=== PATIENT | male | born 1940 | race Caucasian/White ===

== ENCOUNTER 2017-12-06 01:39 | Inpatient (IN) | payer OTHER, SELFPAY ==
[2017-12-06] VITALS (36 sets, daily range): BP systolic 109–155; BP diastolic 58–99; PULSE 44–92; RESP 11–22; TEMP 36.5–36.7; O2SAT 93–98; BMI 30.2; BMI 27.9; BMI 28.0
--- NOTE | 2017-12-06 01:47 | ED.RN ---
CALLED FOR EKG, PULLED OLD EKGS FOR
--- NOTE | 2017-12-06 02:08 | EKG12_ITS ---
Test Reason : CP Blood Pressure : / mmHG Vent. Rate : 062 BPM Atrial Rate : 062 BPM P-R Int : 202 ms QRS Dur : 112 ms QT Int : 418 ms P-R-T Axes : 037 049 034 degrees QTc Int : 424 ms Normal sinus rhythm Normal ECG Confirmed by YANI BENTLEY, GERARD ([id number]), sports editor LIN AVILES ([id number]) on 12/07/2017 1:12:36 PM Referred By: GUY Confirmed By:GERARD LOMELI MD
--- NOTE | 2017-12-06 02:08 | RAD_ITS ---
STUDY: X-RAY CHEST REASON FOR EXAM: Male, 77 years old. Chest pain. TECHNIQUE: Single AP portable view of the chest. COMPARISON: Prior comparison studies are not available for review at this time. FINDINGS: There is hyperinflation of the lungs consistent with chronic obstructive lung disease (COPD). No focal infiltrate is seen. There is no demonstrated pleural abnormality. Normal size heart. Normal mediastinum and sherman. Normal visualized pulmonary arteries. There is atherosclerotic tortuosity of the aortic arch and descending thoracic aorta. The thoracic spine is obscured. Normal visualized ribs, clavicles, and shoulders. There is no demonstrated abnormality of the visualized soft tissue structures of the upper abdomen. RAD/Chest 1 View (Portable) IMPRESSION: No active pulmonary disease. Electronically Signed: Antoine Gandhi MD at 2:25 EDT Tel , Service support ,
[2017-12-06 02:19] LABS: Absolute Lymphocyte Count 1.48 X10^3/ul (0.83-4.51); Absolute Neutrophil Count 3.6 X10^3/uL (2.0-7.7); Basophil# 0.04 X10^3/uL; Basophil% 0.6 % (0-1); Eosinophil# 0.51 X10^3/uL; Eosinophils% 8.2 % (0-5); Hematocrit 41.8 % (40-54); Hemoglobin 14.2 g/dl (13.0-16.5); Lymphocyte # 1.48 X10^3/ul (4.0); Lymphocyte % 23.7 % (19-41); Mean Corpuscular Hgb 31.6 pg (27.0-32.0); Mean Corpuscular Volume 92.9 fL (80-94); Mean Platelet Vol. 9.4 fl (6.2-12.0); Monocyte# 0.64 X10^3/uL; Monocyte% 10.2 % (0-10); Neutrophil # 3.57 X10^3/uL (2.7-7.7); Neutrophil % 57.1 % (47-70); Platelet Count 172 K/mm3 (150-450); RBC Distribution Width CV 12.3 % (11.6-14.6); RBC Distribution Width SD 41.4 fl (35.1-43.9); White Blood Count 6.3 K/mm3 (4.4-11.0)
[2017-12-06 02:21] LABS: POSITIVE COUNT NO; POSITIVE DIFFERENTIAL NO; POSITIVE MORPHOLOGY NO
[2017-12-06 02:38] LABS: Anion Gap 5 (5-15); BUN 17 mg/dL (7-18); BUN/Creat Ratio 17.1 RATIO (10-20); Calcium,Total 8.4 mg/dL (8.5-10.1); Chloride 106 mmol/L (98-107); EST Glomerular Filtration Rate 77 mL/min (>60); Est Glom Filt Rate - Afr Amer 94 mL/min (>60); Estimated Creatinine Clearance 55.83 ml/min; Glucose 89 mg/dL (74-106); Potassium 3.6 mmol/L (3.5-5.1); Sodium Level 142 mmol/L (136-145)
[2017-12-06] MEDS: Aspirin 81 MG TAB.CHEW 324 MG PO (02:39)
--- NOTE | 2017-12-06 03:01 | EKG12_ITS ---
Test Reason : CP REPEAT Blood Pressure : / mmHG Vent. Rate : 065 BPM Atrial Rate : 065 BPM P-R Int : 200 ms QRS Dur : 110 ms QT Int : 430 ms P-R-T Axes : 025 032 017 degrees QTc Int : 447 ms Normal sinus rhythm with sinus arrhythmia Normal ECG Confirmed by YANI BENTLEY, GERARD ([id number]), editor index LIN AVILES ([id number]) on 12/07/2017 1:12:52 PM Referred By: GUY Confirmed By:GERARD LOMELI MD
--- NOTE | 2017-12-06 03:41 | HP.PCM_ITS ---
Problem List (1) Non-ST elevation [place] (NSTEMI) Status: Acute History of Present Illness Date of Admission: 12/06/17 Chief Complaint: Chest pain ?1 week The patient is a 77 year old M with a significant history of CAD status post stents who presents with progressively worsening nonradiating substernal chest pain that started about a week ago. Patient reported that he noticed his chest pain after running or walking. His chest pain was alleviated with slowing down his activity. The patient described the severity of the chest pain as: enough to feel it. He characterizes it as a discomfort. Associated with his symptoms is shortness of breath; and a one-time episode of diaphoresis. Patient was given nitroglycerin by EMS any chest pain improved. At emergency department his troponin was elevated. EKG was unremarkable. He was given aspirin 324 mg. ED doctor reports that he talked to Dr. Leal, cardiology. The plan for the conversation was that the patient's likely will have cardiac cath on same day of admission (morning); and a therapeutic dose of anticoagulation should not be started. Emergency department patient received a loading dose of Plavix; metoprolol titrates and 3 sublingual nitroglycerin. He was also started on nitroglycerin drip. The patient reported that he does not take any home medication except daily dose of baby aspirin. The last time he took his home aspirin was the day before his admission. 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 Past Medical History Allergies No Known Allergies Allergy (Verified 12/06/17 01:41) Home Medications: Ambulatory Orders Medication Instructions Recorded NK [NK] 12/06/17 Surgical History: no surgical history Lives: Spouse/ Significant Other Smoking Status: Never smoker Tobacco Use: Non-smoker Alcohol: None - *Family History Paternal History Items: Heart Disease Maternal History Items: No pertinent history Review of Systems Constitutional: Denies: Chills, Fever, Weight Change Eyes: Denies: Blurred vision, Pain HEENT: Denies: Head Aches, Sinus Congestion, Sinus Drainage Cardiovascular: Reports: Chest Pain Respiratory: Reports: Shortness of Breath Gastrointestinal: Denies: Abdominal Pain, Nausea, Vomiting Genitourinary: Denies: Dysuria Musculoskeletal: Denies: Joint Pain, Joint Tenderness Skin: Denies: Rash, Wounds Neurological: Denies: Numbness, Tingling, Focal weakness Psychiatric: Denies: Anxiety, Depression, Homicidal Ideations, Suicidal Ideations Hematologic/ Lymphatic: Denies: Easy Bruising, Easy Bleeding VTE Information - Inpt Only VTE Present on Admission: No VTE Mechan Device Prophylaxis: None VTE Pharm Prophylaxis ordered?: Yes Patient Problems: Active and Suspected Problems Non-ST elevation [place] (NSTEMI) (Acute) - Physical Exam General: Alert HEENT: Atraumatic, PERRLA, EOMI, Normocephalic Neck: Supple Lungs: Clear to auscultation Cardiovascular: Regular rate, No murmurs Abdomen: Bowel Sounds Present, Soft, Non Tender Extremities: No edema, Capillary Refill Less than 3 Seconds Skin: No rashes, No breakdown Musculoskeletal: No Tenderness to Palpation of Joints or Extremities Neurological: Cranial nerves II-XII grossly intact Psych/Mental Status: Normal Affect, Appropriate Vital Signs Temp Pulse Resp BP Pulse Ox 98.0 F 63 17 119/81 H 96 12/06/17 01:42 12/06/17 03:25 12/06/17 03:23 12/06/17 03:25 12/06/17 03:23 Oxygen Delivery Method Room Air Weight: 84.9 kg Body Mass Index (BMI) 30.2 Laboratory Tests Past 24 Hrs 12/06/17 12/06/17 01:50 01:50 WBC 6.3 RBC 4.50 L Hgb 14.2 Hct 41.8 MCV 92.9 MCH 31.6 MCHC 34.0 RDW 12.3 RDW Differential 41.4 Plt Count 172 MPV 9.4 Immature Gran % (Auto) 0.200 Neut % (Auto) 57.1 Lymph % (Auto) 23.7 Ballard % (Auto) 10.2 H Eos % (Auto) 8.2 H Baso % (Auto) 0.6 Absolute Neuts (auto) 3.6 Absolute Lymphs (auto) 1.48 Total Counted Not Reportable Sodium 142 Potassium 3.6 Chloride 106 Carbon Dioxide 31.0 Anion Gap 5 BUN 17 Creatinine 1.00 Estim Creat Clear Calc 55.83 Est GFR (MDRD) Af Amer 94 Est GFR (MDRD) Non-Af 77 BUN/Creatinine Ratio 17.1 Glucose 89 Calcium 8.4 L Troponin I 0.184 H Assessment/Plan All Active Problems Non-ST elevation [place] (NSTEMI) (Acute) The patient is a 77 year old M with a significant history of CAD status post stents who presents with progressively worsening nonradiating substernal typical chest pain; a strong family history of heart disease; and a positive troponin concerning for non-ST elevation VT Non-ST elevation VT Admit to a monitored bed on PCU CXR independently reviewed confirms no acute pulmonary disease EKG independently reviewed confirms normal sinus rhythm without T-wave abnormalities ASA 81 mg p.o. daily Patient was started on nitroglycerin drip for emergency department; nitroglycerin drip continued Troponin on admission was positive. Continue serial cardiac enzymes Stat EKG as needed for chest pain Patient received beta blockers on admission. Please consider further beta- soniya therapy as necessary. Fasting lipids ordered. High intensity statin started. Received Plavix loading at emergency department Cardiology has been consulted. DVT prophylaxis Subcutaneous heparin
[2017-12-06] MEDS: Metoprolol Tartrate 25 MG Tablet PO (03:46)
[2017-12-06] MEDS: Clopidogrel Bisulfate 300 MG Tablet PO (03:46)
--- NOTE | 2017-12-06 03:49 | ED.VISSUMM ---
- ER Visit Summary Date of Service: 12/06/17 Chief Complaint: Chest pain History of Present Illness: The patient is a 77 M who presents with chest pain. He does have a history of coronary disease and prior DC. He had a previous stent which he believes was 2002. Over the past 2 days he has had intermittent chest pain. This initially began while running and was relieved by stopping. His pain became worse tonight. He has had some associated shortness of breath and diaphoresis. No nausea or vomiting. No fevers. Patient did have sublingual nitroglycerin prior to presentation here to the emergency department which he states did help. Physical Examination: Afebrile vitals stable Moist mucous membranes Heart regular rate and rhythm Lungs are clear Abdomen soft 2+ radial pulses Extremities nontender Alert Test Results: EKG shows sinus rhythm at a rate of 62. Chest x-ray shows no active disease. CBC BMP unremarkable. Troponin is 0.184. Emergency Department Course and Treatment: Patient was given aspirin. He was given further sublingual nitroglycerin here about change in symptoms. Given evidence of cardiac ischemia and ongoing chest pain nitroglycerin infusion was ordered. I spoke to Dr. Leal. He recommended a loading dose of Plavix as well as beta-soniya and to defer on anticoagulation at this time as they will likely perform cardiac catheterization on the patient this morning. I spoke to the hospitalist and the patient will be admitted. Treatment Plan: [] Disposition: Admit Impression: Acute coronary syndrome This note was generated with [employer] dictation software. It may contain incorrect words, spelling, and punctuation that were not noted in review of the chart prior to signing ED Disposition - Plan for ED Patient: Chief Complaint: Chest Pain Referrals: Juan R Rowland DO [Primary Care Provider] -
--- NOTE | 2017-12-06 03:52 | ED.DCSUM_ITS ---
- ER Visit Summary Date of Service: 12/06/17 Chief Complaint: Chest pain History of Present Illness: The patient is a 77 M who presents with chest pain. He does have a history of coronary disease and prior CA. He had a previous stent which he believes was 2002. Over the past 2 days he has had intermittent chest pain. This initially began while running and was relieved by stopping. His pain became worse tonight. He has had some associated shortness of breath and diaphoresis. No nausea or vomiting. No fevers. Patient did have sublingual nitroglycerin prior to presentation here to the emergency department which he states did help. Physical Examination: Afebrile vitals stable Moist mucous membranes Heart regular rate and rhythm Lungs are clear Abdomen soft 2+ radial pulses Extremities nontender Alert Test Results: EKG shows sinus rhythm at a rate of 62. Chest x-ray shows no active disease. CBC BMP unremarkable. Troponin is 0.184. Emergency Department Course and Treatment: Patient was given aspirin. He was given further sublingual nitroglycerin here about change in symptoms. Given evidence of cardiac ischemia and ongoing chest pain nitroglycerin infusion was ordered. I spoke to Dr. Leal. He recommended a loading dose of Plavix as well as beta-soniya and to defer on anticoagulation at this time as they will likely perform cardiac catheterization on the patient this morning. I spoke to the hospitalist and the patient will be admitted. Treatment Plan: [] Disposition: Admit Impression: Acute coronary syndrome This note was generated with [employer] dictation software. It may contain incorrect words, spelling, and punctuation that were not noted in review of the chart prior to signing ED Disposition - Plan for ED Patient: Chief Complaint: Chest Pain Referrals: Juan R Rowland DO [Primary Care Provider] -
--- NOTE | 2017-12-06 04:32 | EKG12_ITS ---
Test Reason : ADMISSION CP Blood Pressure : / mmHG Vent. Rate : 058 BPM Atrial Rate : 058 BPM P-R Int : 204 ms QRS Dur : 108 ms QT Int : 440 ms P-R-T Axes : 041 028 036 degrees QTc Int : 431 ms Sinus bradycardia Otherwise normal ECG When compared with ECG of 06-DEC-2017 03:08, MANUAL COMPARISON REQUIRED, DATA IS UNCONFIRMED Confirmed by YANI BENTLEY, GERARD ([id number]), manager editorial LIN AVILES ([id number]) on 12/07/2017 2:25:35 PM Referred By: BRYNN Confirmed By:GERARD LOMELI MD
[2017-12-06] MEDS: Aspirin E.C. 81 MG Tablet PO (06:02)
[2017-12-06] MEDS: Atorvastatin Calcium 80 MG Tablet PO ×2 (06:02→21:23)
[2017-12-06 06:07] LABS: International Normalized Ratio 1.2; Prothrombin Time (Protime)PT. 15.2 SECONDS (11.7-14.9)
[2017-12-06 06:08] LABS: Partial Thromboplast Time 32.6 Seconds (24.1-36.2)
[2017-12-06 06:37] LABS: Cholesterol 147 mg/dL (200); High Density Lipoprotein 37 mg/dL; Triglycerides 82 mg/dL; Very Low Density Lipoprotein 16 mg/dL (5-40)
--- NOTE | 2017-12-06 07:57 | PCM.CONS.C ---
Problem List (1) Non-ST elevation [place] (NSTEMI) Status: Acute (2) Ventricular tachycardia (paroxysmal) Status: Acute (3) CAD (coronary artery disease) Status: Chronic Qualifiers: Coronary Disease-Associated Artery/Lesion type: [place] artery (4) S/P PTCA (percutaneous transluminal coronary angioplasty) Status: Chronic Reason for Consult Date of Consultation: 12/06/17 History of Present Illness: The patient is a 77 year old white male with a past medical history of CAD status post PCI who presents for evaluation of chest discomfort reminiscent of his previous symptoms with subsequent findings of abnormal cardiac enzymes, cardiac dysrhythmia with nonsustained wide complex tachycardia/nonsustained VT, and an abnormal ECG. His previous cardiovascular event occurred in approximately 2002. He continue with outpatient follow-up for period of time. He subsequently elected not to continue with outpatient follow-up locally. He then states he was being evaluated by cardiology and [place], [place] for period of time. During this time he recalls being on aspirin therapy. He does not recall undergoing any other diagnostic testing other than ECGs. He states that recently he has been having exertional and now resting chest discomfort which she describes as a heartburn-like sensation. He has had intermittent left upper extremity discomfort. He also notes an element of shortness of breath and dyspnea occurring with his symptoms. He has denied any orthopnea, PND, peripheral pitting edema, palpitations, near syncope or syncope. He presented to [facility] emergency department for further evaluation. He was noted to have indeterminate troponin I levels. His ECG demonstrated sinus rhythm with concerns of nonspecific ST and T-wave abnormality. He was placed in the PCU on medical management for further evaluation care. Since being in the PCU on medical management which has included IV nitroglycerin he states he does feel better. He has been noted to have continued indeterminate troponin I levels. His ECGs have demonstrated nonspecific ST and T-wave abnormality. His cardiac rhythm demonstrated an episode of nonsustained wide complex tachycardia compatible with nonsustained ventricular tachycardia of approximately 8 beats in duration. [] Past Medical History Allergies/Adverse Reactions: Allergies No Known Allergies Allergy (Verified 12/06/17 01:41) Home Medications: Ambulatory Orders Medication Instructions Recorded NK [NK] 12/06/17 Past Medical History (Chronic Problems): Chronic Problems CAD (coronary artery disease) (Chronic) S/P PTCA (percutaneous transluminal coronary angioplasty) (Chronic) Surgical History: no surgical history - *Family History Paternal History Items: Heart Disease Maternal History Items: No pertinent history Lives: Spouse/ Significant Other Smoking Status: Never smoker Tobacco Use: Non-smoker Alcohol: None Review of Systems - Review of Systems General: Denies: Fever, Night Sweats, Fatigue Cardiovascular: Reports: Chest Discomfort, Chest Discomfort at Rest, Chest Discomfort with Exertion, Shortness of Breath with Exertion Respiratory: Reports: Shortness of Breath. Denies: Cough, Sputum Production, Hemoptysis Gastrointestinal: Reports: Heart Burn. Denies: Hematemesis, Hematochezia, Melena Genitourinary: Denies: Dysuria, Hematuria Skin: Denies: Rash Subjectve: This is a 77-year-old white male who appears to be resting comfortably at this time in no acute distress. Objective: Vital Signs Temp Pulse Resp BP Pulse Ox 98.0 F 52 L 16 117/81 H 96 12/06/17 05:00 12/06/17 07:00 12/06/17 07:00 12/06/17 07:00 12/06/17 07:00 Oxygen Delivery Method Room Air Weight: 183 lb 13.848 oz Body Mass Index (BMI) 27.9 General: Awake, Alert, Oriented x 3, Cooperative, No Acute Distress HEENT: Atraumatic, Normocephalic, PERRL, EOMI, Sclera Non Icteric Oral: Moist Mucosa Neck: Supple, Good ROM, No JVD Lungs: Clear to auscultation Cardiovascular: Regular Rhythm, Normal S1, Normal S2, Positive S4 Vascular: No Carotid Bruits Abdomen: Bowel Sounds Present, Soft, Non Tender Extremities: No Cyanosis, No Clubbing, No edema Neurological: No Focal Motor or Sensory Deficit Psych/Mental Status: Appropriate, Normal Affect 12/06/17 05:46: Triglycerides 82, Cholesterol 147, LDL Cholesterol 94, VLDL Cholesterol 16, HDL Cholesterol 37 L 12/06/17 05:46: PT 15.2 H, INR 1.2, APTT 32.6 12/06/17 05:46: Troponin I 0.475 H Rhythm: As noted above EKG: As noted above CXR: Preliminary evaluation: No acute cardiopulmonary disease appreciated Assessment/Plan 1. Acute non-ST segment elevation [place] The patient presents with concerns based upon his history, his ongoing symptoms, his cardiac enzymes, his cardiac dysrhythmia, his ECG, of an acute non-ST segment elevation [place]. At the present time he is continuing to be monitored. He is continuing medical management. The recommendation has been made for further evaluation with diagnostic cardiac catheterization. The procedure and risks were discussed with the patient. He was agreeable to this approach. 2. Paroxysmal ventricular tachycardia The patient has had an episode of nonsustained wide complex tachycardia appearing compatible with nonsustained VT of approximately 8 beats in duration. This could be secondary to underlying CAD and myocardial ischemia. He will continue to be monitored. He is being treated medically including beta-soniya therapy. Been recommended for further evaluation with diagnostic cardiac catheterization which may lead to additional revascularization therapy. 3. CAD status post PCI-remote The patient has a history of CAD status post a remote PCI. He now presents back with the aforementioned concerns. He has been on aspirin therapy. He is now been placed back on additional medical management including antiplatelet therapy. He is being recommended for further evaluation with diagnostic cardiac catheterization. Comment: The above was discussed with the patient and his family members present. This note was generated with [employer] software. It may contain incorrect words, spelling, and punctuation that were not noted in checking the note before signing.
--- NOTE | 2017-12-06 08:02 | CON.PCM_ITS ---
Problem List (1) Non-ST elevation [place] (NSTEMI) Status: Acute (2) Ventricular tachycardia (paroxysmal) Status: Acute (3) CAD (coronary artery disease) Status: Chronic Qualifiers: Coronary Disease-Associated Artery/Lesion type: [place] artery (4) S/P PTCA (percutaneous transluminal coronary angioplasty) Status: Chronic Reason for Consult Date of Consultation: 12/06/17 History of Present Illness: The patient is a 77 year old white male with a past medical history of CAD status post PCI who presents for evaluation of chest discomfort reminiscent of his previous symptoms with subsequent findings of abnormal cardiac enzymes, cardiac dysrhythmia with nonsustained wide complex tachycardia/nonsustained VT, and an abnormal ECG. His previous cardiovascular event occurred in approximately 2002. He continue with outpatient follow-up for period of time. He subsequently elected not to continue with outpatient follow-up locally. He then states he was being evaluated by cardiology and [place], [place] for period of time. During this time he recalls being on aspirin therapy. He does not recall undergoing any other diagnostic testing other than ECGs. He states that recently he has been having exertional and now resting chest discomfort which she describes as a heartburn-like sensation. He has had intermittent left upper extremity discomfort. He also notes an element of shortness of breath and dyspnea occurring with his symptoms. He has denied any orthopnea, PND, peripheral pitting edema, palpitations, near syncope or syncope. He presented to [facility] emergency department for further evaluation. He was noted to have indeterminate troponin I levels. His ECG demonstrated sinus rhythm with concerns of nonspecific ST and T-wave abnormality. He was placed in the PCU on medical management for further evaluation care. Since being in the PCU on medical management which has included IV nitroglycerin he states he does feel better. He has been noted to have continued indeterminate troponin I levels. His ECGs have demonstrated nonspecific ST and T-wave abnormality. His cardiac rhythm demonstrated an episode of nonsustained wide complex tachycardia compatible with nonsustained ventricular tachycardia of approximately 8 beats in duration. [] Past Medical History Allergies/Adverse Reactions: Allergies No Known Allergies Allergy (Verified 12/06/17 01:41) Home Medications: Ambulatory Orders Medication Instructions Recorded NK [NK] 12/06/17 Past Medical History (Chronic Problems): Chronic Problems CAD (coronary artery disease) (Chronic) S/P PTCA (percutaneous transluminal coronary angioplasty) (Chronic) Surgical History: no surgical history - *Family History Paternal History Items: Heart Disease Maternal History Items: No pertinent history Lives: Spouse/ Significant Other Smoking Status: Never smoker Tobacco Use: Non-smoker Alcohol: None Review of Systems - Review of Systems General: Denies: Fever, Night Sweats, Fatigue Cardiovascular: Reports: Chest Discomfort, Chest Discomfort at Rest, Chest Discomfort with Exertion, Shortness of Breath with Exertion Respiratory: Reports: Shortness of Breath. Denies: Cough, Sputum Production, Hemoptysis Gastrointestinal: Reports: Heart Burn. Denies: Hematemesis, Hematochezia, Melena Genitourinary: Denies: Dysuria, Hematuria Skin: Denies: Rash Subjectve: This is a 77-year-old white male who appears to be resting comfortably at this time in no acute distress. Objective: Vital Signs Temp Pulse Resp BP Pulse Ox 98.0 F 52 L 16 117/81 H 96 12/06/17 05:00 12/06/17 07:00 12/06/17 07:00 12/06/17 07:00 12/06/17 07:00 Oxygen Delivery Method Room Air Weight: 183 lb 13.848 oz Body Mass Index (BMI) 27.9 General: Awake, Alert, Oriented x 3, Cooperative, No Acute Distress HEENT: Atraumatic, Normocephalic, PERRL, EOMI, Sclera Non Icteric Oral: Moist Mucosa Neck: Supple, Good ROM, No JVD Lungs: Clear to auscultation Cardiovascular: Regular Rhythm, Normal S1, Normal S2, Positive S4 Vascular: No Carotid Bruits Abdomen: Bowel Sounds Present, Soft, Non Tender Extremities: No Cyanosis, No Clubbing, No edema Neurological: No Focal Motor or Sensory Deficit Psych/Mental Status: Appropriate, Normal Affect 12/06/17 05:46: Triglycerides 82, Cholesterol 147, LDL Cholesterol 94, VLDL Cholesterol 16, HDL Cholesterol 37 L 12/06/17 05:46: PT 15.2 H, INR 1.2, APTT 32.6 12/06/17 05:46: Troponin I 0.475 H Rhythm: As noted above EKG: As noted above CXR: Preliminary evaluation: No acute cardiopulmonary disease appreciated Assessment/Plan 1. Acute non-ST segment elevation [place] The patient presents with concerns based upon his history, his ongoing symptoms , his cardiac enzymes, his cardiac dysrhythmia, his ECG, of an acute non-ST segment elevation [place]. At the present time he is continuing to be monitored. He is continuing medical management. The recommendation has been made for further evaluation with diagnostic cardiac catheterization. The procedure and risks were discussed with the patient. He was agreeable to this approach. 2. Paroxysmal ventricular tachycardia The patient has had an episode of nonsustained wide complex tachycardia appearing compatible with nonsustained VT of approximately 8 beats in duration. This could be secondary to underlying CAD and myocardial ischemia. He will continue to be monitored. He is being treated medically including beta- soniya therapy. Been recommended for further evaluation with diagnostic cardiac catheterization which may lead to additional revascularization therapy. 3. CAD status post PCI-remote The patient has a history of CAD status post a remote PCI. He now presents back with the aforementioned concerns. He has been on aspirin therapy. He is now been placed back on additional medical management including antiplatelet therapy. He is being recommended for further evaluation with diagnostic cardiac catheterization. Comment: The above was discussed with the patient and his family members present. This note was generated with [employer] software. It may contain incorrect words, spelling, and punctuation that were not noted in checking the note before signing.
--- NOTE | 2017-12-06 09:51 | NURSING ---
report called to Rossy FENTON in ICU
--- NOTE | 2017-12-06 10:29 | CL.I_ITS ---
Patient Name: JAMA BROWN Study Date: 12/06/2017 Performing: John Peck MD Ht: 68.11 inches 173 cm : 1940 Wt: 182.98 lbs 83 kg Age: 77 Gender: male BSA: 1.97 PROCEDURE(S) PERFORMED [id number] W OR WO PTCA, SINGLE CORONARY ARTERY [id number] W OR WO PTCA, SINGLE CORONARY ARTERY CLINICAL PROFILE AND CO-MORBIDITIES Indications: ACS <= 24 hrs, Worsening Angina, Suspected CAD, ACS > 24 hrs, Worsening Angina, New Onset Angina <= 2 months, Stable Known CAD, LV Dysfunction Heart Failure: None Stress/Imaging Stress/Image Study Performed: No Stress/Image Study Performed: No Angina Classification Anginal Classification w/in 2 Weeks: CCS IV CAD Presentations: Unstable angina. Unstable angina. Non-STEMI. Symptom onset Date/Time: 8 Time Not Available Comorbidities/Risk Factors: Hypertension Dyslipidemia Prior PCI CONCLUSIONS Successful PTCA/LARY of the mid LAD ISR with a 3.0 x 32 Promus Synergy, post dilated with a 3.0 x 12 N C balloon; 100%-->0%, no dissection. 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 Leal Stress test in 2 weeks to eval lcx and PDA; if abnormal would recommend PCI of either LCX or PDA with long 55 cm sheath . Successful Mynx closure. DESCRIPTION OF PROCEDURE The patient arrived to the procedure lab. The risks and benefits of the procedure as well as a full d escription of our services here and current unavailability of surgical backup were fully explained to the patient and/or their significant other prior to the catheterization. The Timeout was completed, verifying the correct patient and procedure. The patient's procedural site was prepped and draped in the usual fashion. Local anesthetic was given subcutaneously to right groin region with Lidocaine 2% Using a modified Seldinger technique,arterial access was obtained via the right femoral artery, a 4Fr sheath was inserted Left Coronary Artery selective angiography was performed in multiple views using a 4 Fr. JL5 catheter. Right Coronary Artery selective angiography was then performed in multiple vie ws using a 4 Fr. 3DRC catheter. Left Ventriculography was performed in [place] projection using a 4 Fr. P igtail catheter. LV to AO pullback pressures were then recorded.The images were reviewed and options discussed. A decision was then made to proceed with an Intervention, IVUS or other adjunct procedure. Arterial sheath was exchanged for a 6 Fr x 55cm Sheath. EBU 3.75 Guide catheter was inserted and enga ged into the LCA. Runthrough Guide wire was advanced to the LAD. [place] AP inserted Pass # 1 [place] A P Removed 2.5 x 12 Emerge Balloon catheter was inserted. Balloon catheter was advanced across lesion in the LAD, mid. PTCA balloon inflated at 6 atms for 10 secs. PTCA balloon inflated at 6 atms for 8 s ecs. PTCA balloon inflated at 8 atms for 12 secs. PTCA balloon inflated at 8 atms for 10 secs. 3.0 x 32 Synergy Drug Eluting stent was inserted. Drug Eluting stent was advanced across the lesion in the LAD, mid. Angiogram performed post stent deployment. 3.0 x 12 NC emerge Balloon catheter was inserted . Balloon catheter was inserted post stent. Angiogram performed post balloon dilatation. Contrast was injected through the sheath and the Right Iliac and Femoral artery were assessed for possible closur e device. The arterial sheath was pulled and a Mynx closure device was deployed for hemostasis INTERVENTION INFORMATION LESION SITE: LAD (Mid) Lesion Complexity: High/C, lesion at bifurcation: No, thrombus present: Yes, lesion length: 32 mm, cu lprit lesion: Yes Pre Stenosis: 100 % Pre intervention JULIETA flow: 3 PROCEDURE: Drug Eluting Stent with pre and post dilatation Post Stenosis: 0 % Post intervention JULIETA flow: 3 Lesion Devices: Medtronic 6 Fr EBU3.75 100cm Guide Catheter Terumo .014 Runthrough Extra Floppy 180cm straight Medtronic 6 Fr. [place] AP Aspiration Catheter Brennon Sci EMERGE MR 2.50x12 BALLOON Brennon Sci Synergy MR LARY 3.00x32 Brennon Sci NC EMERGE MR 3.00x12 BALLOON COMPLICATIONS No Complications PROCEDURE MEDICATIONS Versed 1 mg IV Oxygen: 2 L/min via nasal cannula Heparin 6000 unit(s) IV 12/06/2017 09:45:29 Nitro glycerin 25mg / 250ml D5W @ 5 mcg/min IV continued from floor 12/06/2017 08:20:41 Nitro 200 mcg IC 12/06/2017 09:59:07 Nitro 200 mcg IC 12/06/2017 10:05:41 Plavix 75 mg PO 12/06/2017 08:20:18 SUMMARY OF HEMODYNAMIC DATA Time AIR REST ECG 08:16:43 AO 124/67 (88) SA 08:40:15 LV 0/13, 0 08:52:29 LV 137/2, 22 08:52:35 LV 134/4, 30 08:53:32 LV 138/0, 23 08:53:39 LVp 140/0, 24 08:53:44 AOp 149/75 (103) 08:53:49 Signed By John Peck MD On 12/06/2017 10:28:52 John Peck MD
--- NOTE | 2017-12-06 10:31 | EKG12_ITS ---
Test Reason : POST PCI Blood Pressure : / mmHG Vent. Rate : 050 BPM Atrial Rate : 050 BPM P-R Int : 200 ms QRS Dur : 114 ms QT Int : 486 ms P-R-T Axes : 030 055 071 degrees QTc Int : 443 ms Sinus bradycardia T wave abnormality, consider anterior ischemia Abnormal ECG When compared with ECG of 06-DEC-2017 04:48, MANUAL COMPARISON REQUIRED, DATA IS UNCONFIRMED Confirmed by YANI BENTLEY, GERARD ([id number]), telegraph editor LIN AVILES ([id number]) on 12/13/2017 9:38:58 AM Referred By: KATHLEEN Confirmed By:GERARD LOMELI MD
[2017-12-06 10:41] LABS: ACT Activated Clotting Time 158 sec (74-137)
[2017-12-06] MEDS: 0.9% Normal Saline 1,000 ML 150 ML IV (11:09)
--- NOTE | 2017-12-06 12:12 | CRPHASE1 ---
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 Risk Factors/Lifestyle Smoking Status: Never smoker Hx Hypertension: No Hx Diabetes Mellitus Type 1: No Hx Diabetes Mellitus Type 2: No Hx Metabolic Disorders: No Hx Dyslipidemia: No Stress: Home/Family Risk Factor for Sedentary Lifestyle: Moderate Risk Past Cardiac Illness: Coronary Artery Disease, Previous PCI w/Stent Laboratory Values: Cardiac Rehab Phase I Labs Triglycerides 82 mg/dL (-199) 12/06/17 05:46 Cholesterol 147 mg/dL (200) 12/06/17 05:46 LDL Cholesterol 94 mg/dL (0-130) 12/06/17 05:46 HDL Cholesterol 37 mg/dL (40-) L 12/06/17 05:46 Phase I Education Given On:: [place], Nutrition, Antiplatelet medication Issues Affecting Care:: None - FAMILY AT BEDSIDE. GNOSTICISM - DOESN'T THINK HE NEEDS THIS GETS ENOUGH EXERCISE Knowledge of Condition:: Yes Learning Preferences: Verbal, Written Hospital Course Presenting Symptoms:: NSTEMI Medical/Surgical History HI:: Yes - NSTEMI / PREVIOUS HI CAD:: Yes Diabetes:: No Hypertension:: No Dyslipidemia:: No PTCA:: Yes Discharge/Home/Social Eval Discharge Disposition: Home Marital Status:
--- NOTE | 2017-12-06 12:15 | CRPHASE1_ITS ---
Patient Data/Charges Phase II Referral:: [facility] Start Phase II:: FOLLOWING OFFICE VISIT WITH MEDICAL EQUIPMENT SALES Risk Factors/Lifestyle Smoking Status: Never smoker Hx Hypertension: No Hx Diabetes Mellitus Type 1: No Hx Diabetes Mellitus Type 2: No Hx Metabolic Disorders: No Hx Dyslipidemia: No Stress: Home/Family Risk Factor for Sedentary Lifestyle: Moderate Risk Past Cardiac Illness: Coronary Artery Disease, Previous PCI w/Stent Laboratory Values: Cardiac Rehab Phase I Labs Triglycerides 82 mg/dL (-199) 12/06/17 05:46 Cholesterol 147 mg/dL (200) 12/06/17 05:46 LDL Cholesterol 94 mg/dL (0-130) 12/06/17 05:46 HDL Cholesterol 37 mg/dL (40-) L 12/06/17 05:46 Phase I Education Given On:: [place], Nutrition, Antiplatelet medication Issues Affecting Care:: None - FAMILY AT BEDSIDE. SIKHISM - DOESN'T THINK HE NEEDS THIS GETS ENOUGH EXERCISE Knowledge of Condition:: Yes Learning Preferences: Verbal, Written Hospital Course Presenting Symptoms:: NSTEMI Medical/Surgical History GA:: Yes - NSTEMI / PREVIOUS GA CAD:: Yes Diabetes:: No Hypertension:: No Dyslipidemia:: No PTCA:: Yes Discharge/Home/Social Eval Discharge Disposition: Home Marital Status:
--- NOTE | 2017-12-06 12:17 | CRPH1.INST_ITS ---
General Education CAD and cardiac anatomy and function:: Patient communicates acknowledgment, Family communicates acknowledgment Explanation of diagnoses and procedures:: Patient communicates acknowledgment, Family communicates acknowledgment Sign/Symptoms of [place]:: Patient communicates acknowledgment, Family communicates acknowledgment Antiplatelet therapy: Patient communicates acknowledgment, Family communicates acknowledgment Proper use of NTG-SL: Patient communicates acknowledgment, Family communicates acknowledgment Emergency procedures and activation of EMS: Patient communicates acknowledgment , Family communicates acknowledgment Compliance of all prescribed medications: Patient communicates acknowledgment, Family communicates acknowledgment Smoking Patient Nicotine/Smoking Risk Factors Are:: Never smoked Dyslipidemia Recommendations Include:: Lipid profile provided, Reviewed NCEP/ATP guidelines, Therapeutic Lifestyle Change dietary guidelines Dyslipidemia Response Code:: Patient communicates acknowledgment, Family communicates acknowledgment Overweight/Obesity Patient Overweight/Obesity Risk Factors Are:: Overweight = 26-29 Recommendations Include:: Weight loss of 5-10%, Reduced calorie diet, Exercise 5 -7 times/week Overweight/Obesity:: Patient communicates acknowledgment, Family communicates acknowledgment Hypertension Patient Hypertension Risk Factors Are:: No documented hx of HTN Heart Disease Patient Heart Disease Risk Factors Are:: Previous cardiac event Recommendations Include:: Educated family members of their risk, Educated family members of importance of prevention of heart disease Heart Disease Response Code:: Patient communicates acknowledgment, Family communicates acknowledgment Diabetes Patient Diabetes Risk Factors Are:: No documented hx of diabetes Metabolic Syndrome Recommendations Include:: Does not meet criteria Sedentary Patient Sedentary Risk Factors Are:: Lack of regular exercise Recommendations Include:: Aerobic exercise 5-7 times/week for 20-30 minutes continuously, Benefits of regular exercise, Discussed home walking program, Monitored Outpatient Cardiac Rehab Sedentary Response Code:: Patient communicates acknowledgment, Family communicates acknowledgment Stress Recommendations Include:: Identification of stressors, and assessment of coping skills, Stress management techniques Stress Response Code:: Patient communicates acknowledgment, Family communicates acknowledgment
--- NOTE | 2017-12-06 18:15 | PCM.HOSP.N ---
Hospitalist Note Patient was seen briefly today in the ICU, he underwent cardiac catheterization today and insertion of drug-eluting stent. Patient appears stable after the procedure today. He voices no complaints of any chest pain or shortness of breath and is eating lunch.
[2017-12-06] MEDS: 0.9% NaCl Peripheral Flush Adult/Peds IV (21:27)
[2017-12-07] VITALS (27 sets, daily range): BP systolic 106–167; BP diastolic 74–92; PULSE 53–97; RESP 13–21; TEMP 36.6; O2SAT 94–98
[2017-12-07 04:29] LABS: Color, Urine Yellow (Yellow); Glucose, Dipstick Normal (Normal); Ketone-Dipstick Negative (Negative); Leukocyte Esterase-Dipstick 500 /ul (Negative); Nitrite-Dipstick Negative (Negative); Occult Blood-Urine 10 /ul (Negative); Protein-Dipstick Negative (Negative); Urine Bilirubin Dipstick Negative (Negative); Urine Clarity Clear (Clear); Urine Urobilinogen Normal (Normal)
[2017-12-07 04:50] LABS: Hematocrit 41.1 % (40-54); Hemoglobin 14.2 g/dl (13.0-16.5); Mean Corp Hgb Conc 34.5 g/gl (32-36); Mean Corpuscular Hgb 31.9 pg (27.0-32.0); Mean Corpuscular Volume 92.4 fL (80-94); Mean Platelet Vol. 9.3 fl (6.2-12.0); Platelet Count 179 K/mm3 (150-450); RBC Distribution Width CV 12.2 % (11.6-14.6); RBC Distribution Width SD 40.7 fl (35.1-43.9); Red Blood Count 4.45 M/mm3 (4.6-6.2); White Blood Count 8.3 K/mm3 (4.4-11.0)
[2017-12-07 04:57] LABS: Anion Gap 8 (5-15); BUN 15 mg/dL (7-18); BUN/Creat Ratio 15.6 RATIO (10-20); Calcium,Total 8.4 mg/dL (8.5-10.1); Chloride 108 mmol/L (98-107); Creatinine, Serum 0.96 mg/dL (0.70-1.30); EST Glomerular Filtration Rate 81 mL/min (>60); Est Glom Filt Rate - Afr Amer 98 mL/min (>60); Estimated Creatinine Clearance 62.34 ml/min; Glucose 104 mg/dL (74-106); Sodium Level 144 mmol/L (136-145)
[2017-12-07 05:02] LABS: Scan Indicated on CBC? Y/N NO
--- NOTE | 2017-12-07 07:29 | ECHOCS_ITS ---
Reason For Study: S/P RI Procedure This was a 2D Doppler, Color Flow transthoracic echocardiogram. The study was technically difficult. Contrast injection was performed. Exam performed portable in ICU/CCU. Left Ventricle Normal LV size. Mild concentric left ventricular hypertrophy. Segmental dysfunction with preserved ejection fraction (see wall motion). The estimated ejection fraction is 55 %. Diastolic function is indeterminate. Mid-Anterior : Hypokinetic. Mid-anteroseptal : Akinetic. [place] : Akinetic. Right Ventricle Normal RV size. Normal systolic function. Atria Normal left atrium. Normal right atrium. No doppler evidence for ASD. Mitral Valve There is mild mitral annular calcification. Normal mitral valve. Trivial mitral valve insufficiency. Tricuspid Valve Normal tricuspid valve. Trivial tricuspid valve insufficiency. Right ventricular systolic pressure estimated to be 29 mmHg. Aortic Valve Trisinus/trileaflet aortic valve. Mild focal aortic valve calcification. Pulmonic Valve The pulmonic valve is not well visualized. Great Vessels Normal sized aortic root. Calcified aortic root. Pericardium/Pleural No pericardial effusion. Medication Diluted definity 4ml given slow IV push to enhance endocardial definition. MMode/2D Measurements & Calculations LVIDd: 4.7 cm IVSd: 1.3 cm LVOT diam: 2.0 cm LVIDs: 2.2 cm LVPWd: 1.4 cm LVOT area: 3.3 cm2 FS: 54.4 % Ao root diam: 3.9 cm LAV(MOD-sp4): 54.0 ml LA A4 area: 19.4 cm2 LA dimension: 3.9 cm RA A4 area: 12.7 cm2 Time Measurements MV dec time: 0.26 sec Doppler Measurements & Calculations MV E max lai: 78.0 cm/sec Lat Peak E' Lai: 7.7 cm/sec Med Peak E' Lai: 7.9 cm/sec MV A max lai: 88.8 cm/sec E/E' lat: 10.2 E/E' med: 9.9 MV E/A: 0.88 MV V2 max: 101.1 cm/sec MV P1/2t max lai: 92.5 cm/sec Ao V2 max: 151.2 cm/sec MV max P.1 mmHg MV P1/2t: 78.9 msec Ao max P.1 mmHg MV V2 mean: 59.9 cm/sec MV dec slope: 343.0 cm/sec2 Ao V2 mean: 106.6 cm/sec MV mean P.6 mmHg MVA(P1/2t): 2.8 cm2 Ao mean P.1 mmHg MV V2 VTI: 33.3 cm Ao V2 VTI: 30.7 cm MVA(VTI): 2.4 cm2 [place](I,D): 2.5 cm2 [place](V,D): 2.3 cm2 LV V1 max: 107.9 cm/sec SV(LVOT): 78.3 ml PA V2 max: 93.7 cm/sec LV V1 max P.7 mmHg LV V1 mean P.6 mmHg LV V1 mean: 76.3 cm/sec LV V1 VTI: 23.8 cm TR max lai: 254.7 cm/sec TR max P.9 mmHg Interpretation Summary The study was technically difficult. Contrast injection was performed. Segmental dysfunction with preserved ejection fraction (see wall motion). The estimated ejection fraction is 55 %. There is mild mitral annular calcification. Trivial mitral valve insufficiency. Trivial tricuspid valve insufficiency. Mild focal aortic valve calcification. Calcified aortic root. Right ventricular systolic pressure estimated to be 29 mmHg. Diastolic function is indeterminate. 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 Ordering Physician: Familia Leal Referring Physician: EMILY CHURCH Performed By: Gregorio Tran RCS
--- NOTE | 2017-12-07 08:21 | CL.D_ITS ---
Patient Name: JAMA BROWN Study Date: 12/06/2017 Performing: Familia Leal MD Ht: 68 inches 173 cm : 1940 Wt: 183.2 lbs 83 kg Age: 77 Gender: male BSA: 1.97 PROCEDURE(S) PERFORMED [id number]/COR/LV [id number] W OR WO PTCA, SINGLE CORONARY ARTERY CLINICAL PROFILE AND INDICATIONS Indications: ACS <= 24 hrs, Worsening Angina, Suspected CAD, ACS > 24 hrs, Worsening Angina, New Onset Angina <= 2 months, Stable Known CAD, LV Dysfunction Heart Failure: None Stress/Imaging Stress/Image Study Performed: No Stress/Image Study Performed: No Angina Classification Anginal Classification w/in 2 Weeks: CCS IV CAD Presentations: Unstable angina. Unstable angina. Non-STEMI. Symptom onset Date/Time: 8 Time Not Available Comorbidities/Risk Factors: Hypertension Dyslipidemia Prior PCI CONCLUSIONS Elevated Left Ventricular End Diastolic Pressure Left ventricular regional wall motion abnormalities with overall perserved left ventricular systolic function LVEF: by LV gram 55 % [place] Multivessel CAD Right to Left collateral flow RECOMMENDATIONS Risk factor modification Medical therapy Referred for immediate PCI DESCRIPTION OF PROCEDURE The patient arrived to the procedure lab. The risks and benefits of the procedure as well as a full d escription of our services here and current unavailability of surgical backup were fully explained to the patient and/or their significant other prior to the catheterization. The Timeout was completed, verifying the correct patient and procedure. The patient's procedural site was prepped and draped in the usual fashion. Local anesthetic was given subcutaneously to right groin region with Lidocaine 2%. Using a modified Seldinger technique, arterial access was obtained via the right femoral artery, a 4 Fr sheath was inserted Left Coronary Artery selective angiography was performed in multiple views us ing a 4 Fr. JL5 catheter. Right Coronary Artery selective angiography was then performed in multiple views using a 4 Fr. 3DRC catheter. Left Ventriculography was performed in MAGAÑA projection using a 4 Fr . Pigtail catheter. LV to AO pullback pressures were then recorded.Contrast was injected through the sheath and the Right Iliac and Femoral artery were assessed for possible closure device.The arterial sheath was pulled and a Mynx closure device was deployed for hemostasis CORONARY ANGIOGRAPHY DOMINANCE: Right Dominant LEFT HEART ASSESSMENT Left Ventricular Ejection Fraction: by LV Gram 55 % Anterior Hypokinesis. Apical Dyskinesis Elevated Left Ventricular End Diastolic Pressure LEFT MAIN: Eccentric: 25 % Stenosis LEFT ANTERIOR DECENDING ARTERY: PROX LAD: Mild calcification, Mild luminal irregularities MID LAD: Mild calcification, Previously placed stent is occluded DIAGONAL 1: Proximal - 90 % Stenosis CIRCUMFLEX ARTERY: Mild luminal irregularities MID CIRC: Diffuse: Eccentric: Hazy: 25 % Stenosis RIGHT CORONARY ARTERY: Diffuse: Eccentric: 25 % Stenosis COLLATERAL FLOW: Collateral flow from Right to Left COMPLICATIONS No Complications PROCEDURE MEDICATIONS Versed 1 mg IV Oxygen: 2 L/min via nasal cannula Heparin 6000 unit(s) IV 12/06/2017 09:45:29 Nitro glycerin 25mg / 250ml D5W @ 5 mcg/min IV continued from floor 12/06/2017 08:20:41 Nitro 200 mcg IC 12/06/2017 09:59:07 Nitro 200 mcg IC 12/06/2017 10:05:41 Plavix 75 mg PO 12/06/2017 08:20:18 SUMMARY OF HEMODYNAMIC DATA Time AIR REST ECG 08:16:43 AO 124/67 (88) SA 08:40:15 LV 0/13, 0 08:52:29 LV 137/2, 22 08:52:35 LV 134/4, 30 08:53:32 LV 138/0, 23 08:53:39 LVp 140/0, 24 08:53:44 AOp 149/75 (103) 08:53:49 Signed By Familia Leal MD On 12/07/2017 08:20:22 Familia Leal MD
[2017-12-07] MEDS: Aspirin E.C. 81 MG Tablet PO (08:49)
[2017-12-07] MEDS: Lisinopril 2.5 MG Tablet PO ×2 (09:07→21:52)
[2017-12-07] MEDS: Carvedilol 3.125 MG TABLET PO ×2 (09:07→21:52)
--- NOTE | 2017-12-07 09:16 | PCM.PN.CARD ---
Subjectve: The patient states he feels better today. He denies ongoing chest discomfort. Objective: Vital Signs Temp Pulse Resp BP Pulse Ox 98 F 70 15 161/89 H 96 12/07/17 08:00 12/07/17 09:00 12/07/17 09:00 12/07/17 09:00 12/07/17 09:00 Oxygen Delivery Method Room Air Weight: 183 lb 13.848 oz Body Mass Index (BMI) 27.9 Intake and Output for Last 24 Hours 12/05/17 12/06/17 12/07/17 23:59 23:59 23:59 Intake Total 193 / 1937 300 / 300 Output Total 1850 / 1850 600 / 600 Balance 88 / 88 -300 / -300 General: Awake, Alert, Oriented x 3, Cooperative, No Acute Distress HEENT: Atraumatic, Normocephalic, PERRL, EOMI, Sclera Non Icteric Oral: Moist Mucosa Neck: Supple, Good ROM Lungs: Clear to auscultation Cardiovascular: Regular Rhythm, Normal S1, Normal S2, Positive S4 Vascular: No Carotid Bruits, Normal Femoral Pulses Abdomen: Bowel Sounds Present, Soft, Non Tender Extremities: No Cyanosis, No Clubbing, No edema 12/07/17 04:15: Urine Color Yellow, Urine Clarity Clear, Urine pH 7.0, Ur Specific [place] 1.010, Urine Protein Negative, Urine Glucose (UA) Normal, Urine Ketones Negative, Urine Occult Blood 10 H, Urine Nitrite Negative, Urine Bilirubin Negative, Urine Urobilinogen Normal, Ur Leukocyte Esterase 500 H 12/07/17 04:33: Sodium 144, Potassium 4.0, Chloride 108 H, Carbon Dioxide 28.0, Anion Gap 8, BUN 15, Creatinine 0.96, Est GFR (MDRD) Af Amer 98, Est GFR (MDRD) Non-Af 81, BUN/Creatinine Ratio 15.6, Glucose 104, Calcium 8.4 L 12/07/17 04:33: WBC 8.3, RBC 4.45 L, Hgb 14.2, Hct 41.1, MCV 92.4, MCH 31.9, MCHC 34.5, RDW 12.2, RDW Differential 40.7, Plt Count 179, MPV 9.3 12/07/17 04:33: Troponin I 4.060 H* Rhythm: Sinus rhythm EKG: This rhythm; T-wave abnormality; consider myocardial ischemia-anterior ECHO: Pending Medical Necessity - Tobacco Use Smoking Status: Never smoker Tobacco Use: Non-smoker Assessment/Plan 1. Acute non-ST segment elevation LA The patient continues to be monitored. His troponin I level did increase. His ECG changes are as noted above. He will continue medical management. His cardiac enzymes and ECGs will be followed. He will have an echocardiogram to further assess his left ventricular wall motion and systolic function. 2. Paroxysmal ventricular tachycardia The patient has had an episode of nonsustained wide complex tachycardia appearing compatible with nonsustained VT of approximately 8 beats in duration. This could be secondary to underlying CAD and myocardial ischemia. He will continue to be monitored. He is being treated medically including beta-soniya therapy. He is now status post LAD PCI. 3. CAD status post PCI-remote The patient will need continue risk factor modification and medical management. He will continue to be followed as noted above. In the future he will need continued outpatient cardiovascular follow-up as well. Comment: The above was discussed with the patient and his spouse and Dr. Fernandez. This note was generated with [employer] software. It may contain incorrect words, spelling, and punctuation that were not noted in checking the note before signing.
--- NOTE | 2017-12-07 09:20 | PN.CARD_ITS ---
Subjectve: The patient states he feels better today. He denies ongoing chest discomfort. Objective: Vital Signs Temp Pulse Resp BP Pulse Ox 98 F 70 15 161/89 H 96 12/07/17 08:00 12/07/17 09:00 12/07/17 09:00 12/07/17 09:00 12/07/17 09:00 Oxygen Delivery Method Room Air Weight: 183 lb 13.848 oz Body Mass Index (BMI) 27.9 Intake and Output for Last 24 Hours 12/05/17 12/06/17 12/07/17 23:59 23:59 23:59 Intake Total 193 / 1937 300 / 300 Output Total 1850 / 1850 600 / 600 Balance 88 / 88 -300 / -300 General: Awake, Alert, Oriented x 3, Cooperative, No Acute Distress HEENT: Atraumatic, Normocephalic, PERRL, EOMI, Sclera Non Icteric Oral: Moist Mucosa Neck: Supple, Good ROM Lungs: Clear to auscultation Cardiovascular: Regular Rhythm, Normal S1, Normal S2, Positive S4 Vascular: No Carotid Bruits, Normal Femoral Pulses Abdomen: Bowel Sounds Present, Soft, Non Tender Extremities: No Cyanosis, No Clubbing, No edema 12/07/17 04:15: Urine Color Yellow, Urine Clarity Clear, Urine pH 7.0, Ur Specific [place] 1.010, Urine Protein Negative, Urine Glucose (UA) Normal, Urine Ketones Negative, Urine Occult Blood 10 H, Urine Nitrite Negative, Urine Bilirubin Negative, Urine Urobilinogen Normal, Ur Leukocyte Esterase 500 H 12/07/17 04:33: Sodium 144, Potassium 4.0, Chloride 108 H, Carbon Dioxide 28.0, Anion Gap 8, BUN 15, Creatinine 0.96, Est GFR (MDRD) Af Amer 98, Est GFR (MDRD) Non-Af 81, BUN/Creatinine Ratio 15.6, Glucose 104, Calcium 8.4 L 12/07/17 04:33: WBC 8.3, RBC 4.45 L, Hgb 14.2, Hct 41.1, MCV 92.4, MCH 31.9, MCHC 34.5, RDW 12.2, RDW Differential 40.7, Plt Count 179, MPV 9.3 12/07/17 04:33: Troponin I 4.060 H* Rhythm: Sinus rhythm EKG: This rhythm; T-wave abnormality; consider myocardial ischemia-anterior ECHO: Pending Medical Necessity - Tobacco Use Smoking Status: Never smoker Tobacco Use: Non-smoker Assessment/Plan 1. Acute non-ST segment elevation [place] The patient continues to be monitored. His troponin I level did increase. His ECG changes are as noted above. He will continue medical management. His cardiac enzymes and ECGs will be followed. He will have an echocardiogram to further assess his left ventricular wall motion and systolic function. 2. Paroxysmal ventricular tachycardia The patient has had an episode of nonsustained wide complex tachycardia appearing compatible with nonsustained VT of approximately 8 beats in duration. This could be secondary to underlying CAD and myocardial ischemia. He will continue to be monitored. He is being treated medically including beta- soniya therapy. He is now status post LAD PCI. 3. CAD status post PCI-remote The patient will need continue risk factor modification and medical management. He will continue to be followed as noted above. In the future he will need continued outpatient cardiovascular follow-up as well. Comment: The above was discussed with the patient and his spouse and Dr. Fernandez. This note was generated with [employer] software. It may contain incorrect words, spelling, and punctuation that were not noted in checking the note before signing.
--- NOTE | 2017-12-07 09:30 | CASEMGMT ---
SEE RN CM ASSESS LINK: D/C PLAN: HOME Intro self and role to RN CM. Pt resting in bed, at bedside. Pt states was independent prior to admission w/ambulation and ADL's, require no DME, and wishes to return home on discharge. Pt and deny need for HHC or other needs. CM to follow for any discharge planning needs that may arise. Cindy RICO RN CM
[2017-12-07] MEDS: Clopidogrel Bisulfate 75 MG Tablet PO (09:37)
--- NOTE | 2017-12-07 10:00 | EKG12_ITS ---
Test Reason : AM EKG Blood Pressure : / mmHG Vent. Rate : 056 BPM Atrial Rate : 056 BPM P-R Int : 196 ms QRS Dur : 112 ms QT Int : 480 ms P-R-T Axes : 063 069 104 degrees QTc Int : 463 ms Sinus bradycardia Marked T wave abnormality, consider anterior ischemia Prolonged QT Abnormal ECG When compared with ECG of 06-DEC-2017 11:01, MANUAL COMPARISON REQUIRED, DATA IS UNCONFIRMED Confirmed by YANI BENTLEY, GERARD ([id number]), city editor LIN AVILES ([id number]) on 12/13/2017 9:36:19 AM Referred By: NORBERTO Confirmed By:GERARD LOMELI MD
--- NOTE | 2017-12-07 18:17 | PCM.PROGNOTE ---
Patient Problems: Active and Suspected Problems Non-ST elevation [place] (NSTEMI) (Acute) Ventricular tachycardia (paroxysmal) (Acute) Subjective: Patient seen and examined today in ICU, I talked briefly with his also, he does not appear to be in any distress and has no complaints of any chest pain. I discussed his care with cardiology today cardiology feels uncomfortable with the patient being discharged due to his elevation of his troponin today, they would prefer to continue to care for the patient in ICU and reevaluate him tomorrow. - Physical Exam General: Alert, Oriented x3, Cooperative, No apparent distress, Well developed HEENT: Atraumatic, PERRLA, EOMI, Normocephalic Oral: Moist Mucosa Neck: Supple, No Nuchal Rigidity, Trachea Midline, Thyroid Normal Size and Texture Lungs: Clear to auscultation, Normal air movement, No rhonchi, No wheeze, No rales Cardiovascular: Regular rate, Regular Rhythm, Normal S1, Normal S2, No murmurs, No Ectopic Activity, PMI Normal, No rub noted, No Gallop Abdomen: Bowel Sounds Present, Soft, Non Tender, Non-Distended, No hernias noted Extremities: No clubbing, No cyanosis, No edema, Capillary Refill Less than 3 Seconds Skin: No rashes, No breakdown Neurological: Cranial nerves II-XII grossly intact, Neuro grossly intact, Sensory exam intact to light touch and pain, Coordination normal Psych/Mental Status: Normal Affect, Appropriate, Alert and oriented to time, place, person, mood and affect Vital Signs Temp Pulse Resp BP Pulse Ox 98 F 69 14 106/74 95 12/07/17 14:00 12/07/17 15:36 12/07/17 15:00 12/07/17 15:00 12/07/17 15:00 Oxygen Delivery Method Room Air Weight: 83.4 kg Body Mass Index (BMI) 27.9 Intake and Output for Last 24 Hours 12/05/17 12/06/17 12/07/17 23:59 23:59 23:59 Intake Total 1937 / 193 600 / 600 Output Total 1850 / 1850 1100 / 1100 Balance 88 / 88 -500 / -500 Laboratory Tests Past 24 Hrs 12/07/17 12/07/17 12/07/17 04:15 04:33 04:33 WBC 8.3 RBC 4.45 L Hgb 14.2 Hct 41.1 MCV 92.4 MCH 31.9 MCHC 34.5 RDW 12.2 RDW Differential 40.7 Plt Count 179 MPV 9.3 Sodium 144 Potassium 4.0 Chloride 108 H Carbon Dioxide 28.0 Anion Gap 8 BUN 15 Creatinine 0.96 Estim Creat Clear Calc 62.34 Est GFR (MDRD) Af Amer 98 Est GFR (MDRD) Non-Af 81 BUN/Creatinine Ratio 15.6 Glucose 104 Calcium 8.4 L Troponin I Urine Color Yellow Urine Clarity Clear Urine pH 7.0 Ur Specific [place] 1.010 Urine Protein Negative Urine Glucose (UA) Normal Urine Ketones Negative Urine Occult Blood 10 H Urine Nitrite Negative Urine Bilirubin Negative Urine Urobilinogen Normal Ur Leukocyte Esterase 500 H 12/07/17 12/07/17 04:33 09:35 WBC RBC Hgb Hct MCV MCH MCHC RDW RDW Differential Plt Count MPV Sodium Potassium Chloride Carbon Dioxide Anion Gap BUN Creatinine Estim Creat Clear Calc Est GFR (MDRD) Af Amer Est GFR (MDRD) Non-Af BUN/Creatinine Ratio Glucose Calcium Troponin I 4.060 H* 2.840 H* Urine Color Urine Clarity Urine pH Ur Specific [place] Urine Protein Urine Glucose (UA) Urine Ketones Urine Occult Blood Urine Nitrite Urine Bilirubin Urine Urobilinogen Ur Leukocyte Esterase Medical Necessity - Tobacco Use Smoking Status: Never smoker Tobacco Use: Non-smoker Assessment/Plan All Active Problems Non-ST elevation IN (NSTEMI) (Acute) Ventricular tachycardia (paroxysmal) (Acute) #1 acute [id number] care per cardiology, reevaluate the patient in the a.m. #2 paroxysmal ventricular tachycardia #3 status post insertion LARY stent LAD postop day #1 #4 hyperlipidemia Code Visit Inpatient E&M: 95088 Subs Hosp L2
--- NOTE | 2017-12-07 18:24 | PN_ITS ---
Patient Problems: Active and Suspected Problems Non-ST elevation [place] (NSTEMI) (Acute) Ventricular tachycardia (paroxysmal) (Acute) Subjective: Patient seen and examined today in ICU, I talked briefly with his also, he does not appear to be in any distress and has no complaints of any chest pain. I discussed his care with cardiology today cardiology feels uncomfortable with the patient being discharged due to his elevation of his troponin today, they would prefer to continue to care for the patient in ICU and reevaluate him tomorrow. - Physical Exam General: Alert, Oriented x3, Cooperative, No apparent distress, Well developed HEENT: Atraumatic, PERRLA, EOMI, Normocephalic Oral: Moist Mucosa Neck: Supple, No Nuchal Rigidity, Trachea Midline, Thyroid Normal Size and Texture Lungs: Clear to auscultation, Normal air movement, No rhonchi, No wheeze, No rales Cardiovascular: Regular rate, Regular Rhythm, Normal S1, Normal S2, No murmurs, No Ectopic Activity, PMI Normal, No rub noted, No Gallop Abdomen: Bowel Sounds Present, Soft, Non Tender, Non-Distended, No hernias noted Extremities: No clubbing, No cyanosis, No edema, Capillary Refill Less than 3 Seconds Skin: No rashes, No breakdown Neurological: Cranial nerves II-XII grossly intact, Neuro grossly intact, Sensory exam intact to light touch and pain, Coordination normal Psych/Mental Status: Normal Affect, Appropriate, Alert and oriented to time, place, person, mood and affect Vital Signs Temp Pulse Resp BP Pulse Ox 98 F 69 14 106/74 95 12/07/17 14:00 12/07/17 15:36 12/07/17 15:00 12/07/17 15:00 12/07/17 15:00 Oxygen Delivery Method Room Air Weight: 83.4 kg Body Mass Index (BMI) 27.9 Intake and Output for Last 24 Hours 12/05/17 12/06/17 12/07/17 23:59 23:59 23:59 Intake Total 1937 / 193 600 / 600 Output Total 1850 / 1850 1100 / 1100 Balance 88 / 88 -500 / -500 Laboratory Tests Past 24 Hrs 12/07/17 12/07/17 12/07/17 04:15 04:33 04:33 WBC 8.3 RBC 4.45 L Hgb 14.2 Hct 41.1 MCV 92.4 MCH 31.9 MCHC 34.5 RDW 12.2 RDW Differential 40.7 Plt Count 179 MPV 9.3 Sodium 144 Potassium 4.0 Chloride 108 H Carbon Dioxide 28.0 Anion Gap 8 BUN 15 Creatinine 0.96 Estim Creat Clear Calc 62.34 Est GFR (MDRD) Af Amer 98 Est GFR (MDRD) Non-Af 81 BUN/Creatinine Ratio 15.6 Glucose 104 Calcium 8.4 L Troponin I Urine Color Yellow Urine Clarity Clear Urine pH 7.0 Ur Specific [place] 1.010 Urine Protein Negative Urine Glucose (UA) Normal Urine Ketones Negative Urine Occult Blood 10 H Urine Nitrite Negative Urine Bilirubin Negative Urine Urobilinogen Normal Ur Leukocyte Esterase 500 H 12/07/17 12/07/17 04:33 09:35 WBC RBC Hgb Hct MCV MCH MCHC RDW RDW Differential Plt Count MPV Sodium Potassium Chloride Carbon Dioxide Anion Gap BUN Creatinine Estim Creat Clear Calc Est GFR (MDRD) Af Amer Est GFR (MDRD) Non-Af BUN/Creatinine Ratio Glucose Calcium Troponin I 4.060 H* 2.840 H* Urine Color Urine Clarity Urine pH Ur Specific [place] Urine Protein Urine Glucose (UA) Urine Ketones Urine Occult Blood Urine Nitrite Urine Bilirubin Urine Urobilinogen Ur Leukocyte Esterase Medical Necessity - Tobacco Use Smoking Status: Never smoker Tobacco Use: Non-smoker Assessment/Plan All Active Problems Non-ST elevation [place] (NSTEMI) (Acute) Ventricular tachycardia (paroxysmal) (Acute) #1 acute [id number] care per cardiology, reevaluate the patient in the a.m. #2 paroxysmal ventricular tachycardia #3 status post insertion LARY stent LAD postop day #1 #4 hyperlipidemia Code Visit Inpatient E&M: 37025 Subs Hosp L2
[2017-12-07] MEDS: Atorvastatin Calcium 80 MG Tablet PO (21:52)
[2017-12-07] MEDS: Heparin Injection (Vial) 5,000 UNIT/ML VIAL IV (22:44)
[2017-12-07] MEDS: HEPARIN/D5w 25,000 UNITS 25,000 UNITS/250 ML IV.SOLN. 12 UNITS IV (23:00)
[2017-12-08] VITALS (16 sets, daily range): BP systolic 107–135; BP diastolic 71–86; PULSE 49–90; RESP 13–16; TEMP 36.6–37.2; O2SAT 93–98
[2017-12-08 06:11] LABS: Absolute Lymphocyte Count 1.51 X10^3/ul (0.83-4.51); Absolute Neutrophil Count 4.5 X10^3/uL (2.0-7.7); Basophil# 0.03 X10^3/uL; Basophil% 0.4 % (0-1); Eosinophil# 0.54 X10^3/uL; Eosinophils% 7.4 % (0-5); Hemoglobin 13.5 g/dl (13.0-16.5); Lymphocyte # 1.51 X10^3/ul (4.0); Lymphocyte % 20.8 % (19-41); Mean Corp Hgb Conc 33.8 g/gl (32-36); Mean Corpuscular Hgb 31.3 pg (27.0-32.0); Mean Corpuscular Volume 92.6 fL (80-94); Mean Platelet Vol. 9.9 fl (6.2-12.0); Monocyte# 0.73 X10^3/uL; Neutrophil # 4.45 X10^3/uL (2.7-7.7); Neutrophil % 61.3 % (47-70); Platelet Count 157 K/mm3 (150-450); RBC Distribution Width CV 12.5 % (11.6-14.6); Red Blood Count 4.32 M/mm3 (4.6-6.2); White Blood Count 7.3 K/mm3 (4.4-11.0)
[2017-12-08 06:13] LABS: POSITIVE COUNT NO; POSITIVE DIFFERENTIAL NO; POSITIVE MORPHOLOGY NO
[2017-12-08 06:35] LABS: Anion Gap 8 (5-15); BUN 16 mg/dL (7-18); BUN/Creat Ratio 16.5 RATIO (10-20); Calcium,Total 8.3 mg/dL (8.5-10.1); Chloride 108 mmol/L (98-107); Creatinine, Serum 0.97 mg/dL (0.70-1.30); EST Glomerular Filtration Rate 80 mL/min (>60); Est Glom Filt Rate - Afr Amer 97 mL/min (>60); Glucose 101 mg/dL (74-106); Partial Thromboplast Time 156.4 Seconds (24.1-36.2); Potassium 3.7 mmol/L (3.5-5.1); Sodium Level 144 mmol/L (136-145)
[2017-12-08] MEDS: 0.9% NaCl Peripheral Flush Adult/Peds IV (06:43)
[2017-12-08] MEDS: Clopidogrel Bisulfate 75 MG Tablet PO (09:41)
[2017-12-08] MEDS: Lisinopril 2.5 MG Tablet PO ×2 (09:41→21:43)
[2017-12-08] MEDS: Aspirin E.C. 81 MG Tablet PO (09:41)
[2017-12-08] MEDS: Carvedilol 3.125 MG TABLET PO ×2 (09:41→21:42)
--- NOTE | 2017-12-08 10:00 | EKG12_ITS ---
Test Reason : AM EKG Blood Pressure : / mmHG Vent. Rate : 056 BPM Atrial Rate : 056 BPM P-R Int : 200 ms QRS Dur : 112 ms QT Int : 498 ms P-R-T Axes : 049 063 114 degrees QTc Int : [address] & Marked T wave abnormality, consider anterolateral ischemia Prolonged QT Abnormal ECG When compared with ECG of 07-DEC-2017 05:09, MANUAL COMPARISON REQUIRED, DATA IS UNCONFIRMED Confirmed by YAIMA BENTLEY, EBONY ([id number]), state editor LIN AVILES ([id number]) on 12/15/2017 2:40:03 PM Referred By: NORBERTO Confirmed By:EBONY ERWIN MD
[2017-12-08 12:44] LABS: Partial Thromboplast Time 69.9 Seconds (24.1-36.2)
[2017-12-08 18:32] LABS: Partial Thromboplast Time 66.8 Seconds (24.1-36.2)
--- NOTE | 2017-12-08 18:53 | PCM.PN.CARD ---
Subjectve: The patient is awake and alert. He describes no new acute chest discomfort or difficulty breathing at rest or with ambulation in the room or hallway. There is been no obvious orthopnea or PND. There is been no near syncope or syncope. Objective: Vital Signs Temp Pulse Resp BP Pulse Ox 98.4 F 60 16 116/71 94 12/08/17 15:30 12/08/17 15:30 12/08/17 15:30 12/08/17 15:30 12/08/17 15:30 Oxygen Delivery Method Room Air Weight: 179 lb 10.828 oz Body Mass Index (BMI) 27.9 Intake and Output for Last 24 Hours 12/06/17 12/07/17 12/08/17 23:59 23:59 23:59 Intake Total 1938 / 1938 900 / 900 1387.2 / 1387.2 Output Total 1850 / 1850 1475 / 1475 600 / 600 Balance 88 / 88 -575 / -575 787.2 / 787.2 General: Awake, Alert, Oriented x 3, Cooperative, No Acute Distress HEENT: Atraumatic, Normocephalic, PERRL, EOMI, Sclera Non Icteric Oral: Moist Mucosa Neck: Supple, Good ROM, No JVD Lungs: Clear to auscultation Cardiovascular: Regular Rhythm, Normal S1, Normal S2, Positive S4 Abdomen: Bowel Sounds Present, Soft, Non Tender Extremities: No Cyanosis, No Clubbing, No edema Neurological: No Focal Motor or Sensory Deficit Psych/Mental Status: Appropriate, Normal Affect 12/08/17 05:25: Sodium 144, Potassium 3.7, Chloride 108 H, Carbon Dioxide 28.0, Anion Gap 8, BUN 16, Creatinine 0.97, Est GFR (MDRD) Af Amer 97, Est GFR (MDRD) Non-Af 80, BUN/Creatinine Ratio 16.5, Glucose 101, Calcium 8.3 L 12/08/17 05:25: WBC 7.3, RBC 4.32 L, Hgb 13.5, Hct 40.0, MCV 92.6, MCH 31.3, MCHC 33.8, RDW 12.5, RDW Differential 42.0, Plt Count 157, MPV 9.9, Immature Gran % (Auto) 0.100, Neut % (Auto) 61.3, Lymph % (Auto) 20.8, [place] % (Auto) 10.0, Eos % (Auto) 7.4 H, Baso % (Auto) 0.4, Absolute Neuts (auto) 4.5, Total Counted Not Reportable 12/08/17 05:25: APTT 156.4 H* 12/08/17 12:10: APTT 69.9 H 12/08/17 18:15: APTT 66.8 H Rhythm: Sinus rhythm EKG: Sinus rhythm; T-wave abnormality compatible with myocardial ischemia-anterior/lateral ECHO: Please see official report: Comment: Findings appearing compatible with a left ventricular apical thrombus Medical Necessity - Tobacco Use Smoking Status: Never smoker Tobacco Use: Non-smoker Assessment/Plan 1. Acute non-ST segment elevation [place] The patient continues to be monitored. His troponin I level did increase. They have now decreased. His ECG changes are as noted above. He will continue medical management. His echocardiogram demonstrates left ventricular regional wall motion abnormalities with overall preserved LV systolic function with findings compatible with a left ventricular apical thrombus. 2. Paroxysmal ventricular tachycardia The patient has had an episode of nonsustained wide complex tachycardia appearing compatible with nonsustained VT of approximately 8 beats in duration. This could be secondary to underlying CAD and myocardial ischemia. He will continue to be monitored. He is being treated medically including beta-soniya therapy. He is now status post LAD PCI. 3. CAD status post PCI-remote The patient will need continue risk factor modification and medical management. He will continue to be followed as noted above. In the future he will need continued outpatient cardiovascular follow-up as well. 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 A lengthy discussion was held with the patient his spouse and other family members with respect to the significance of his cardiovascular condition including this diagnosis. This included a discussion regarding anticoagulant therapy. The risks and benefits of taking versus not taking anticoagulant therapy were discussed with the patient. At the present time the patient appears to be willing to take his conventional cardiovascular medical therapy such as aspirin, Plavix, beta-blockers, MIKE inhibitors, etc.. However, he is very concerned about anticoagulant therapy. He is weighing the risks and benefits of taking versus not taking anticoagulant therapy. At the present time he appears to be willing to take it while he is in the hospital. However he states he will make a determination before leaving the hospital as to whether or not he will want to take this at home. Comment: The above was discussed with the patient and his spouse and other family members present. Comment: Greater than 30 minutes was spent discussing the patient's case with the patient and his spouse and the other family members present. This note was generated with [employer] dictation software. It may contain incorrect words, spelling, and punctuation that were not noted in checking the note before signing.
--- NOTE | 2017-12-08 18:58 | PN.CARD_ITS ---
Subjectve: The patient is awake and alert. He describes no new acute chest discomfort or difficulty breathing at rest or with ambulation in the room or hallway. There is been no obvious orthopnea or PND. There is been no near syncope or syncope. Objective: Vital Signs Temp Pulse Resp BP Pulse Ox 98.4 F 60 16 116/71 94 12/08/17 15:30 12/08/17 15:30 12/08/17 15:30 12/08/17 15:30 12/08/17 15:30 Oxygen Delivery Method Room Air Weight: 179 lb 10.828 oz Body Mass Index (BMI) 27.9 Intake and Output for Last 24 Hours 12/06/17 12/07/17 12/08/17 23:59 23:59 23:59 Intake Total 1938 / 1938 900 / 900 1387.2 / 1387.2 Output Total 1850 / 1850 1475 / 1475 600 / 600 Balance 88 / 88 -575 / -575 787.2 / 787.2 General: Awake, Alert, Oriented x 3, Cooperative, No Acute Distress HEENT: Atraumatic, Normocephalic, PERRL, EOMI, Sclera Non Icteric Oral: Moist Mucosa Neck: Supple, Good ROM, No JVD Lungs: Clear to auscultation Cardiovascular: Regular Rhythm, Normal S1, Normal S2, Positive S4 Abdomen: Bowel Sounds Present, Soft, Non Tender Extremities: No Cyanosis, No Clubbing, No edema Neurological: No Focal Motor or Sensory Deficit Psych/Mental Status: Appropriate, Normal Affect 12/08/17 05:25: Sodium 144, Potassium 3.7, Chloride 108 H, Carbon Dioxide 28.0, Anion Gap 8, BUN 16, Creatinine 0.97, Est GFR (MDRD) Af Amer 97, Est GFR (MDRD) Non-Af 80, BUN/Creatinine Ratio 16.5, Glucose 101, Calcium 8.3 L 12/08/17 05:25: WBC 7.3, RBC 4.32 L, Hgb 13.5, Hct 40.0, MCV 92.6, MCH 31.3, MCHC 33.8, RDW 12.5, RDW Differential 42.0, Plt Count 157, MPV 9.9, Immature Gran % (Auto) 0.100, Neut % (Auto) 61.3, Lymph % (Auto) 20.8, [place] % (Auto) 10.0 , Eos % (Auto) 7.4 H, Baso % (Auto) 0.4, Absolute Neuts (auto) 4.5, Total Counted Not Reportable 12/08/17 05:25: APTT 156.4 H* 12/08/17 12:10: APTT 69.9 H 12/08/17 18:15: APTT 66.8 H Rhythm: Sinus rhythm EKG: Sinus rhythm; T-wave abnormality compatible with myocardial ischemia- anterior/lateral ECHO: Please see official report: Comment: Findings appearing compatible with a left ventricular apical thrombus Medical Necessity - Tobacco Use Smoking Status: Never smoker Tobacco Use: Non-smoker Assessment/Plan 1. Acute non-ST segment elevation [place] The patient continues to be monitored. His troponin I level did increase. They have now decreased. His ECG changes are as noted above. He will continue medical management. His echocardiogram demonstrates left ventricular regional wall motion abnormalities with overall preserved LV systolic function with findings compatible with a left ventricular apical thrombus. 2. Paroxysmal ventricular tachycardia The patient has had an episode of nonsustained wide complex tachycardia appearing compatible with nonsustained VT of approximately 8 beats in duration. This could be secondary to underlying CAD and myocardial ischemia. He will continue to be monitored. He is being treated medically including beta- soniya therapy. He is now status post LAD PCI. 3. CAD status post PCI-remote The patient will need continue risk factor modification and medical management. He will continue to be followed as noted above. In the future he will need continued outpatient cardiovascular follow-up as well. 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 A lengthy discussion was held with the patient his spouse and other family members with respect to the significance of his cardiovascular condition including this diagnosis. This included a discussion regarding anticoagulant therapy. The risks and benefits of taking versus not taking anticoagulant therapy were discussed with the patient. At the present time the patient appears to be willing to take his conventional cardiovascular medical therapy such as aspirin, Plavix, beta-blockers, MIKE inhibitors, etc.. However, he is very concerned about anticoagulant therapy. He is weighing the risks and benefits of taking versus not taking anticoagulant therapy. At the present time he appears to be willing to take it while he is in the hospital. However he states he will make a determination before leaving the hospital as to whether or not he will want to take this at home. Comment: The above was discussed with the patient and his spouse and other family members present. Comment: Greater than 30 minutes was spent discussing the patient's case with the patient and his spouse and the other family members present. This note was generated with [employer] dictation software. It may contain incorrect words, spelling, and punctuation that were not noted in checking the note before signing.
--- NOTE | 2017-12-08 19:19 | PN_ITS ---
Patient Problems: Active and Suspected Problems Non-ST elevation [place] (NSTEMI) (Acute) Ventricular tachycardia (paroxysmal) (Acute) Subjective: Patient was seen and examined today, his echocardiogram yesterday showed a left ventricular thrombus, he was placed on IV heparin last night and placed on Coumadin. I spent some time with the patient and the patient's about the necessity of having anticoagulation, I asked him to further discuss it with Dr. Leal today when he makes rounds. - Physical Exam General: Alert, Oriented x3, Cooperative, No apparent distress HEENT: Atraumatic, PERRLA, EOMI, Normocephalic Neck: Supple, No Nuchal Rigidity, Trachea Midline Lungs: Clear to auscultation, Normal air movement, No rhonchi, No wheeze Cardiovascular: Regular rate, Regular Rhythm, Normal S1, Normal S2, No murmurs Abdomen: Bowel Sounds Present, Soft, Non Tender, Non-Distended Extremities: No clubbing, No cyanosis, No edema, Capillary Refill Less than 3 Seconds Skin: No rashes, No breakdown Musculoskeletal: No Tenderness to Palpation of Joints or Extremities Neurological: Cranial nerves II-XII grossly intact, Neuro grossly intact, Sensory exam intact to light touch and pain, Coordination normal Psych/Mental Status: Normal Affect, Appropriate, Alert and oriented to time, place, person, mood and affect Vital Signs Temp Pulse Resp BP Pulse Ox 98.4 F 60 16 116/71 94 12/08/17 15:30 12/08/17 15:30 12/08/17 15:30 12/08/17 15:30 12/08/17 15:30 Oxygen Delivery Method Room Air Weight: 81.5 kg Body Mass Index (BMI) 27.9 Intake and Output for Last 24 Hours 12/06/17 12/07/17 12/08/17 23:59 23:59 23:59 Intake Total 1938 / 1938 900 / 900 1387.2 / 1387.2 Output Total 1850 / 1850 1475 / 1475 600 / 600 Balance 88 / 88 -575 / -575 787.2 / 787.2 Laboratory Tests Past 24 Hrs 12/08/17 12/08/17 12/08/17 05:25 05:25 05:25 WBC 7.3 RBC 4.32 L Hgb 13.5 Hct 40.0 MCV 92.6 MCH 31.3 MCHC 33.8 RDW 12.5 RDW Differential 42.0 Plt Count 157 MPV 9.9 Immature Gran % (Auto) 0.100 Neut % (Auto) 61.3 Lymph % (Auto) 20.8 [place] % (Auto) 10.0 Eos % (Auto) 7.4 H Baso % (Auto) 0.4 Absolute Neuts (auto) 4.5 Absolute Lymphs (auto) 1.51 Total Counted Not Reportable APTT 156.4 H* Sodium 144 Potassium 3.7 Chloride 108 H Carbon Dioxide 28.0 Anion Gap 8 BUN 16 Creatinine 0.97 Estim Creat Clear Calc 61.70 Est GFR (MDRD) Af Amer 97 Est GFR (MDRD) Non-Af 80 BUN/Creatinine Ratio 16.5 Glucose 101 Calcium 8.3 L 12/08/17 12/08/17 12:10 18:15 WBC RBC Hgb Hct MCV MCH MCHC RDW RDW Differential Plt Count MPV Immature Gran % (Auto) Neut % (Auto) Lymph % (Auto) [place] % (Auto) Eos % (Auto) Baso % (Auto) Absolute Neuts (auto) Absolute Lymphs (auto) Total Counted APTT 69.9 H 66.8 H Sodium Potassium Chloride Carbon Dioxide Anion Gap BUN Creatinine Estim Creat Clear Calc Est GFR (MDRD) Af Amer Est GFR (MDRD) Non-Af BUN/Creatinine Ratio Glucose Calcium Medical Necessity - Tobacco Use Smoking Status: Never smoker Tobacco Use: Non-smoker Assessment/Plan All Active Problems Non-ST elevation [place] (NSTEMI) (Acute) Ventricular tachycardia (paroxysmal) (Acute) #1 acute [id number] care per cardiology, reevaluate the patient in the a.m. #2 paroxysmal ventricular tachycardia #3 status post insertion LARY stent LAD postop day #2 #4 hyperlipidemia Code Visit Inpatient E&M: 01430 Subs Hosp L2
[2017-12-08] MEDS: Atorvastatin Calcium 80 MG Tablet PO (21:43)
[2017-12-09] MEDS: HEPARIN/D5w 25,000 UNITS 25,000 UNITS/250 ML IV.SOLN. 12 UNITS IV (02:02)
[2017-12-09 03:07] VITALS: PULSE 66
[2017-12-09 03:34] VITALS: BP 152/84; PULSE 69; RESP 14; TEMP 36.9; O2SAT 96
[2017-12-09 06:21] LABS: International Normalized Ratio 1.5; Prothrombin Time (Protime)PT. 17.7 SECONDS (11.7-14.9)
[2017-12-09 06:22] LABS: Partial Thromboplast Time 75.2 Seconds (24.1-36.2)
[2017-12-09 06:36] LABS: Anion Gap 8 (5-15); BUN 17 mg/dL (7-18); Calcium,Total 8.5 mg/dL (8.5-10.1); Chloride 108 mmol/L (98-107); EST Glomerular Filtration Rate 87 mL/min (>60); Est Glom Filt Rate - Afr Amer 106 mL/min (>60); Glucose 95 mg/dL (74-106); Potassium 3.7 mmol/L (3.5-5.1); Sodium Level 143 mmol/L (136-145)
[2017-12-09 07:00] VITALS: PULSE 59
[2017-12-09 09:34] VITALS: BP 117/73; PULSE 68; RESP 16; TEMP 36.7; O2SAT 97
[2017-12-09] MEDS: Aspirin E.C. 81 MG Tablet PO (09:41)
[2017-12-09] MEDS: Lisinopril 2.5 MG Tablet PO (09:42)
[2017-12-09] MEDS: Clopidogrel Bisulfate 75 MG Tablet PO (09:42)
[2017-12-09] MEDS: Carvedilol 3.125 MG TABLET PO (09:42)
--- NOTE | 2017-12-09 10:00 | EKG12_ITS ---
Test Reason : AM EKG Blood Pressure : / mmHG Vent. Rate : 064 BPM Atrial Rate : 064 BPM P-R Int : 204 ms QRS Dur : 098 ms QT Int : 434 ms P-R-T Axes : 051 063 107 degrees QTc Int : 447 ms Normal sinus rhythm ST & T wave abnormality, consider anterior ischemia Abnormal ECG When compared with ECG of 08-DEC-2017 05:06, MANUAL COMPARISON REQUIRED, DATA IS UNCONFIRMED Confirmed by YAIMA BENTLEY, EBONY ([id number]), newspaper photo editor LIN AVILES ([id number]) on 12/15/2017 2:39:03 PM Referred By: NORBERTO Confirmed By:EBONY ERWIN MD
--- NOTE | 2017-12-09 10:19 | PCM.DC ---
- Discharge Diagnoses Current Active Problems: Current Active and Chronic Problems Non-ST elevation [place] (NSTEMI) (Acute) Ventricular tachycardia (paroxysmal) (Acute) CAD (coronary artery disease) (Chronic) Successful PTCA/LARY of the mid LAD ISR with a 3.0 x 32 Promus Synergy, post dilated with a 3.0 x 12 NC balloon; 100%-->0%, no dissection 12/06/2017 S/P PTCA (percutaneous transluminal coronary angioplasty) (Chronic) You will use the following diet at home:: No restrictions Your food should be the consistency of: Regular Your liquids should be the consistency of: Regular/Thin Discharge Activity: Return to Normal Activity Weight Bearing Status: Full weight bearing Additional Instructions: Start Plavix (clopidogrel) on 12/10/17. do not take your lovenox injection on 12/11/17 until you get your lab done and get the result. Take only Tylenol for pain Allergies/Adverse Reactions: Allergies No Known Allergies Allergy (Verified 12/06/17 01:41) Medications to take at Discharge Acetaminophen [Tylenol Tablet] 650 mg PO Q6H PRN PRN tablet 12/09/17 Aspirin E.C. [Ecotrin] 81 mg PO DAILY@0800 tablet 12/09/17 Carvedilol [Coreg (Beta Michael)] 3.125 mg PO BID #60 tab 12/09/17 Clopidogrel Bisulfate [Plavix] 75 mg PO DAILY #30 tab 12/09/17 Enoxaparin Sodium [Lovenox] 120 mg SQ DAILY #3 syringe 12/09/17 Lisinopril [Zestril] 5 mg PO DAILY #30 tab 12/09/17 Warfarin Sodium [Coumadin] 6 mg PO DAILY #90 tab 12/09/17 The following prescriptions were given: Clopidogrel Bisulfate [Plavix] 75 mg PO DAILY #30 tab Enoxaparin Sodium [Lovenox] 120 mg SQ DAILY #3 syringe Lisinopril [Zestril] 5 mg PO DAILY #30 tab Warfarin Sodium [Coumadin] 6 mg PO DAILY #90 tab Carvedilol [Coreg (Beta Michael)] 3.125 mg PO BID #60 tab Primary Care Physician: Juan R Rowland DO [Primary Care Provider] - Please follow up with your Primary Care Physician in: in 2 weeks Test Results: Test results from this visit will be discussed in further detail at your follow-up appointment, if applicable. Please Follow Up With: Familia Leal MD When: in two weeks- [phone], get lab done on 12/11/17 and 12/12/17 (INR)
--- NOTE | 2017-12-09 10:23 | DCINST_ITS ---
- Discharge Diagnoses Current Active Problems: Current Active and Chronic Problems Non-ST elevation OR (NSTEMI) (Acute) Ventricular tachycardia (paroxysmal) (Acute) CAD (coronary artery disease) (Chronic) Successful PTCA/LARY of the mid LAD ISR with a 3.0 x 32 Promus Synergy, post dilated with a 3.0 x 12 NC balloon; 100%-->0%, no dissection 12/06/2017 S/P PTCA (percutaneous transluminal coronary angioplasty) (Chronic) You will use the following diet at home:: No restrictions Your food should be the consistency of: Regular Your liquids should be the consistency of: Regular/Thin Discharge Activity: Return to Normal Activity Weight Bearing Status: Full weight bearing Additional Instructions: Start Plavix (clopidogrel) on 12/10/17. do not take your lovenox injection on 12/11/17 until you get your lab done and get the result. Take only Tylenol for pain Allergies/Adverse Reactions: Allergies No Known Allergies Allergy (Verified 12/06/17 01:41) Medications to take at Discharge Acetaminophen [Tylenol Tablet] 650 mg PO Q6H PRN PRN tablet 12/09/17 Aspirin E.C. [Ecotrin] 81 mg PO DAILY@0800 tablet 12/09/17 Carvedilol [Coreg (Beta Michael)] 3.125 mg PO BID #60 tab 12/09/17 Clopidogrel Bisulfate [Plavix] 75 mg PO DAILY #30 tab 12/09/17 Enoxaparin Sodium [Lovenox] 120 mg SQ DAILY #3 syringe 12/09/17 Lisinopril [Zestril] 5 mg PO DAILY #30 tab 12/09/17 Warfarin Sodium [Coumadin] 6 mg PO DAILY #90 tab 12/09/17 The following prescriptions were given: Clopidogrel Bisulfate [Plavix] 75 mg PO DAILY #30 tab Enoxaparin Sodium [Lovenox] 120 mg SQ DAILY #3 syringe Lisinopril [Zestril] 5 mg PO DAILY #30 tab Warfarin Sodium [Coumadin] 6 mg PO DAILY #90 tab Carvedilol [Coreg (Beta Michael)] 3.125 mg PO BID #60 tab Primary Care Physician: Juan R Rowland DO [Primary Care Provider] - Please follow up with your Primary Care Physician in: in 2 weeks Test Results: Test results from this visit will be discussed in further detail at your follow- up appointment, if applicable. Please Follow Up With: Familia Leal MD When: in two weeks- [phone], get lab done on 12/11/17 and 12/12/17 (INR)
[2017-12-09 11:00] VITALS: PULSE 75
[2017-12-09] MEDS: Enoxaparin 120 MG/0.8 ML Syringe SC (11:49)
--- NOTE | 2017-12-10 14:30 | PCM.DC.SUM ---
Discharge Date and Diagnosis Date of Admission: 12/06/17 Date of Discharge: 12/09/17 - Primary Discharge Diagnosis 1 acute non-STEMI #2 paroxysmal ventricular tachycardia #3 status post insertion LARY stent LAD postop day #1 #4 hyperlipidemia #5 left ventricular apical thrombus - Secondary Discharge Diagnosis Chronic Problems CAD (coronary artery disease) (Chronic) Successful PTCA/LARY of the mid LAD ISR with a 3.0 x 32 Promus Synergy, post dilated with a 3.0 x 12 NC balloon; 100%-->0%, no dissection 12/06/2017 S/P PTCA (percutaneous transluminal coronary angioplasty) (Chronic) Hospital Course and Treatment Procedures: 2-D Echocardiogram, Cardiac catheterization Summary of Care Provided: The patient is a 77 year old M who was seen in the emergency room at [facility] with a chief complaint of chest pain. Workup in the emergency room included an EKG which showed a sinus rhythm with a rate of 42 no acute ischemic changes, chest x-ray showed no active disease, CBC and BMP were unremarkable, troponin was elevated at 0.184. Patient was given aspirin in the emergency room, patient had been given sublingual nitroglycerin prior to presentation in the emergency room and he stated it helped his chest discomfort and a nitroglycerin infusion was started in the emergency room. Cardiology was contacted he recommended loading the patient with Plavix and placing the patient on a beta-michael, anticoagulation was deferred. Patient was admitted to PCU and enzymes were cycled and he was seen in consultation by cardiology. He was noted to have an 8 beat run of nonsustained V. tach. Patient's cardiac enzymes remained abnormal, he was taken for a cardiac catheterization on the morning of 12/06/17, a successful PTCA/LARY of the mid LAD ISR was carried out. Patient's EF by LV gram was 55%, left main had 20% stenosis, left anterior descending artery showed a mid LAD stent that was occluded with a diagonal with 90% stenosis, circumflex artery had diffuse stenosis of approximately 25% and right coronary artery had diffuse 25% stenosis. Patient was admitted to the ICU after the procedure and his troponins continue to elevate, he had no more chest discomfort however and was finally transferred to PCU for further care. 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 Many discussions were carried out with the patient concerning the importance of continuing this regimen, he finally decided that he would take Coumadin as an outpatient and follow-up with Dr. Leal. On 12/09/17, patient was seen and examined felt to be in stable condition for discharge home. Further note: At the time of the patient's discharge from the hospital, he was not given a prescription for Lipitor, the patient was contacted after he was discharged and a prescription for Lipitor 40 mg once a day was called in to [email or web address] [place] on 12/10/17 Discharge Activity: Return to Normal Activity Weight Bearing Status: Full weight bearing Home Medications: Medications to take at Discharge Acetaminophen [Tylenol Tablet] 650 mg PO Q6H PRN PRN tablet 12/09/17 Aspirin E.C. [Ecotrin] 81 mg PO DAILY@0800 tablet 12/09/17 Carvedilol [Coreg (Beta Michael)] 3.125 mg PO BID #60 tab 12/09/17 Clopidogrel Bisulfate [Plavix] 75 mg PO DAILY #30 tab 12/09/17 Enoxaparin Sodium [Lovenox] 120 mg SQ DAILY #3 syringe 12/09/17 Lisinopril [Zestril] 5 mg PO DAILY #30 tab 12/09/17 Warfarin Sodium [Coumadin] 6 mg PO DAILY #90 tab 12/09/17 Following Prescrptions Were Given to Patient: Clopidogrel Bisulfate [Plavix] 75 mg PO DAILY #30 tab Enoxaparin Sodium [Lovenox] 120 mg SQ DAILY #3 syringe Lisinopril [Zestril] 5 mg PO DAILY #30 tab Warfarin Sodium [Coumadin] 6 mg PO DAILY #90 tab Carvedilol [Coreg (Beta Michael)] 3.125 mg PO BID #60 tab Primary Care Physician: Juan R Rowland DO [Primary Care Provider] - Please follow up with your Primary Care Physician in: in 2 weeks Please Follow Up With: Familia Leal MD When: in two weeks- [phone], get lab done on 12/11/17 and 12/12/17 (INR) Disposition: Home Minutes spent on discharge:: 35 Patient Condition:: Stable Medical Necessity - Tobacco Use Smoking Status: Never smoker Tobacco Use: Non-smoker Meaningful Use Info Meaningful Use Diagnoses (Choose all that apply): AMI - AMI Aspirin given w/in 24hrs of arrival?: Yes ASA at discharge?: Yes Statins at discharge?: Yes Osvaldo/ARB at discharge?: Yes Beta Michael at discharge?: Yes Done w/ Acute SC measure.: Yes Code Visit Inpatient E&M: 05135 Disch Hosp
== END 2017-12-09 12:24 | disposition home or self-care (01) | DRG 247 ==
LOC: ED 01:56 → PCU 03:56 → ICU 10:25 → PCU 12-11 08:41
PROVIDERS: Internal Medicine Cardiovascular Disease; Admitting Provider Hospitalist; Emergency Provider Emergency Medicine; Family Provider Family Medicine; PCP Family Medicine; Visit Provider Internal Medicine
DX: I21.4 Non-ST elevation (NSTEMI) myocardial infarction (principal); I47.2 Ventricular tachycardia; E78.5 Hyperlipidemia, unspecified; I51.3 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thrombosis, not elsewhere classified; Z82.49 Family history of ischemic heart disease and other diseases of the circulatory system; I25.110 Atherosclerotic heart disease of native coronary artery with unstable angina pectoris
CPT/HCPCS: 36415; 71045; 80048; 80061; 81002; 84484; 85025; 85027; 85347; 85610; 85730; 92928; 93005; 93306; 93458; 97162; 97166; 97530; 97535; 99152; 99153; 99283; C1760; J7030; Q9957; A4216; C1725; C1757; C1769; C1874; C1887; C1894; C8929; C9600; Q9967

== ENCOUNTER 2017-12-11 10:37 | Outpatient (RCR) | payer OTHER, SELFPAY ==
[2017-12-11 11:16] LABS: International Normalized Ratio 1.9; Prothrombin Time (Protime)PT. 21.8 SECONDS (11.7-14.9)
== END 2017-12-11 12:00 | disposition home or self-care (01) ==
LOC: LAB 10:37
PROVIDERS: Family Provider Family Medicine; PCP Family Medicine; Visit Provider Internal Medicine Cardiovascular Disease
DX: I51.3 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thrombosis, not elsewhere classified (principal)
CPT/HCPCS: 36415; 85610

== ENCOUNTER → 2017-12-22 10:29 | Outpatient (CLI) | payer OTHER, SELFPAY ==
[2017-12-22 11:39] LABS: International Normalized Ratio 2.6; Prothrombin Time (Protime)PT. 28.3 SECONDS (11.7-14.9)
== END ==
PROVIDERS: Family Provider Family Medicine; PCP Family Medicine; Referring Provider Nurse Practitioner Family; Visit Provider Nurse Practitioner Family
DX: I47.2 Ventricular tachycardia (principal); Z79.01 Long term (current) use of anticoagulants
CPT/HCPCS: 36415; 85610

== ENCOUNTER 2018-01-05 10:27 | Outpatient (RCR) | payer OTHER, SELFPAY ==
[2018-01-05 12:12] LABS: International Normalized Ratio 2.6; Prothrombin Time (Protime)PT. 27.6 SECONDS (11.7-14.9)
== END 2018-01-05 12:00 | disposition home or self-care (01) ==
LOC: LAB 10:27
PROVIDERS: Family Provider Family Medicine; PCP Family Medicine; Referring Provider Internal Medicine Cardiovascular Disease; Visit Provider Internal Medicine Cardiovascular Disease
DX: I51.3 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thrombosis, not elsewhere classified (principal)
CPT/HCPCS: 36415; 85610

== ENCOUNTER → 2018-03-06 13:51 | Outpatient (CLI) | payer SELFPAY ==
[2017-12-22 09:39] VITALS: BMI 29.0
--- OUTSIDE RECORDS SUMMARY | 2018-06-08 01:31 | XMS RPT_ITS ---
:1940 Author Organization OHIP Support Name Relationship Address Phone [address] BUILDERS Unavailable [address] + [place] [address] BROWN, ANA LILIA Unavailable [address] + [place] [address] BROWN, CHIN Unavailable [address] + [place] [address] [address] BUILDERS Unavailable [address] + [place] [address] BROWN, ANA LILIA Unavailable [address] + [place] [address] BROWN, CHIN Unavailable [address] + [place] [address] [address] BUILDERS Unavailable [address] + [place] [address] BROWN, ANA LILIA Unavailable [address] + [place] [address] BROWN, CHIN Unavailable [address] + [place] [address] [address] BUILDERS Unavailable [address] + [place] [address] BROWN, ANA LILIA Unavailable [address] + [place] [address] BROWN, CHIN Unavailable [address] + [place] [address] [address] BUILDERS Unavailable [address] + [place] [address] BROWN, ANA LILIA Unavailable [address] + [place] [address] BROWN, CHIN Unavailable [address] + [place] [address] [address] BUILDERS Unavailable [address] + [place] [address] BROWN, ANA LILIA Unavailable [address] + [place] [address] BROWN, CHIN Unavailable Unavailable + [place] [address] [address] BUILDERS Unavailable [address] + [place] [address] BROWN, ANA LILIA Unavailable [address] + [place] [address] BROWN, CHIN Unavailable 1 + [place] [address] 44 BUILDERS Unavailable [address] + [place] [address] BROWN, ANA LILIA Unavailable [address] + [place] [address] BROWN, CHIN Unavailable 1 + [place] [address] 44 BUILDERS Unavailable [address] + [place] [address] BROWN, ANA LILIA Unavailable [address] + [place] [address] 44 BUILDERS Unavailable [address] + [place] [address] BROWN, ANA LILIA Unavailable [address] + [place] [address] BROWN, CHIN Unavailable Unavailable + [place] [address] 44 BUILDERS Unavailable [address] + [place] [address] BROWN, ANA LILIA Unavailable [address] + [place] [address] 44 BUILDERS Unavailable [address] + [place] [address] BROWN, ANA LILIA Unavailable [address] + [place] [address] BROWN, CHIN Unavailable 1 + [place] [address] [address] BUILDERS Unavailable [address] + [place] [address] BROWN, ANA LILIA Unavailable [address] + [place] [address] 44 BUILDERS Unavailable [address] + [place] [address] BROWN, ANA LILIA Unavailable [address] + [place] [address] BROWN, CHIN Unavailable 1 + [place] [address] 44 BUILDERS Unavailable [address] + [place] [address] BROWN, ANA LILIA Unavailable [address] + [place] [address] 44 BUILDERS Unavailable [address] + [place] [address] BROWN, ANA LILIA Unavailable [address] + [place] [address] BROWN, CHIN Unavailable 1 + [place] [address] 44 BUILDERS Unavailable [address] + [place] [address] BROWN, ANA LILIA Unavailable [address] + [place] [address] 44 BUILDERS Unavailable [address] + [place] [address] BROWN, ANA LILIA Unavailable [address] + [place] [address] Care Team Providers Name Role Phone Adan Pinon Attending Unavailable Adan Pinon Referring Unavailable Juan R Rowland Primary Care Unavailable Familia Erwin Consulting Unavailable Familia Erwin Attending Unavailable Familia Erwin Referring Unavailable Juan R Rowland [facility] Unavailable Juan R Rowland [facility] Unavailable Rufus Main Admitting Unavailable Familia Erwin Consulting Unavailable Tray Fernandez Attending Unavailable Rufus Main Admitting Unavailable Familia Erwin Attending Unavailable Janett, Juan R Primary Care Unavailable [place], Familia Consulting Unavailable Tereletsky, Tray Consulting Unavailable [place], Familia Attending Unavailable Roof, Adan H Referring Unavailable [place], Familia Attending Unavailable [place], Familia Referring Unavailable Janett, Juan R Primary Care Unavailable Agyepong, Rufus Admitting Unavailable Janett, Juan R Primary Care Unavailable [place], Familia Consulting Unavailable Agyepong, Rufus Attending Unavailable Tereletsky, Tray Consulting Unavailable Agyepong, Rufus Admitting Unavailable [place], Familia Attending Unavailable Janett, Juan R Primary Care Unavailable [place], Familia Consulting Unavailable Tereletsky, Tray Consulting Unavailable Agyepong, Rufus Admitting Unavailable Tereletsky, Tray Attending Unavailable Janett, Juan R Primary Care Unavailable [place], Familia Consulting Unavailable Tereletsky, Tray Consulting Unavailable Agyepong, Rufus Admitting Unavailable [place], Familia Attending Unavailable Janett, Juan R Primary Care Unavailable [place], Familia Consulting Unavailable Tereletsky, Tray Consulting Unavailable Agyepong, Rufus Admitting Unavailable Tereletsky, Tray Attending Unavailable Janett, Juan R Primary Care Unavailable [place], Familia Consulting Unavailable Tereletsky, Tray Consulting Unavailable Agyepong, Rufus Admitting Unavailable Tereletsky, Tray Attending Unavailable Janett, Juan R Primary Care Unavailable [place], Familia Consulting Unavailable Tereletsky, Tray Consulting Unavailable [place], Familia Attending Unavailable [place], Familia Referring Unavailable Janett, Juan R Primary Care Unavailable [place], Familia Attending Unavailable [place], Familia Referring Unavailable Janett, Juan R Primary Care Unavailable Roof, Adan H Attending Unavailable Janett, Juan R Referring Unavailable Roof, Adan H Attending Unavailable Roof, Adan H Referring Unavailable Janett, Juan R Primary Care Unavailable Judson, [place] Attending Unavailable Tereletsky, Tray Referring Unavailable [place], Familia Attending Unavailable [place], Familia Referring Unavailable Janett, Juan R Primary Care Unavailable PROBLEMS PROBLEMS DATE TYPE CONDITION / CODE ATTENDING STATUS SOURCE 03/19/2018 Unknown I51.3 - 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[place], Active [place] thrombosis, not Familia Community elsewhere classified / Hospital I51.3(ICD-10) Repository 03/19/2018 Unknown Z79.01 - [facility] [place], Active [place] (current) use of [facility] anticoagulants / Hospital Z79.01(ICD-10) Repository 03/06/2018 Unknown I25.10 - RoofAdan Active [place] Atherosclerotic heart [facility] coronary artery Repository without angina pectoris / I25.10(ICD-10) 01/11/2018 Unknown I47.2 - Ventricular JudsonShlomo major Active [facility] tachycardia / Community I47.2(ICD-10) Hospital Repository 01/11/2018 Unknown R94.31 - Abnormal Judson, [place] Active [facility] [place] electrocardiogram Community [ECG] [EKG] / Hospital R94.31(ICD-10) Repository 01/11/2018 Unknown I25.110 - Judson, Shlomo Active [facility] Atherosclerotic heart Community [facility] coronary artery with Repository unstable angina pectoris / I25.110(ICD-10) PROCEDURES PROCEDURES No Procedure Records FoundRESULTS RESULTS PROTHROMBIN TIME W/INR Collected: 04/06/2018 Status: F Source: [place] 4:28 PM [facility] REPOSITORY TYPE CODE TESTS RESULT OUT OF RANGE REFERENCE UNITS LAB L300.4150 11.7-14.9 SECONDS High PROTIME 22.8 LAB L300.4200 Normal INR 2.0 Performed By: #### L300.3900 #### [facility] Laboratory [address] [place], [address] PROTHROMBIN TIME W/INR Collected: 03/30/2018 Status: F Source: [place] 9:41 AM [facility] REPOSITORY Order Comment: Comments: STANDING ORDER Comments: STANDING ORDER TYPE CODE TESTS RESULT OUT OF RANGE REFERENCE UNITS LAB L300.4150 11.7-14.9 SECONDS High PROTIME 16.8 LAB L300.4200 Normal INR 1.4 Performed By: #### L300.3900 #### [facility] [address] [place], [place], [address] PROTHROMBIN TIME W/INR Collected: 03/16/2018 Status: F Source: [place] 8:58 AM [facility] REPOSITORY Order Comment: Comments: STANDING ORDER Comments: STANDING ORDER TYPE CODE TESTS RESULT OUT OF RANGE REFERENCE UNITS LAB L300.4150 11.7-14.9 SECONDS High PROTIME 19.9 LAB L300.4200 Normal INR 1.7 Performed By: #### L300.3900 #### [facility] [address] [place], [address] PROTHROMBIN TIME W/INR Collected: 01/05/2018 Status: F Source: [place] 10:29 AM [facility] REPOSITORY TYPE CODE TESTS RESULT OUT OF RANGE REFERENCE UNITS LAB L300.4150 11.7-14.9 SECONDS High PROTIME 27.6 LAB L300.4200 Normal INR 2.6 Performed By: #### L300.3900 #### [facility] [address] [place], [address] CARDIOLOGY VISIT Observed: 12/22/2017 Status: F Source: [place] REPORT 4:49 PM [facility] REPOSITORY [facility] [address] [place] [address] OFFICE VISIT Date of Service: 12/22/17 MR#: [id number] Acct: [id number] Name: JAMA BROWN Rep #: [id number] : 1940 Provider: ALLYSON Pinon Age/Sex: 77/M Location: [facility] Status: Signed HPI HPI Chief Complaint: Chest Pain Details: JAMA BROWN, is a 77 M who presents to the office today for a cardiovascular outpatient follow-up. He has a history of coronary artery disease status post non-ST elevated myocardial infarction with PTCA/LARY to mid LAD in-stent restenosis in November 2017, paroxysmal ventricular tachycardia, and left ventricle thrombus noted in November 2017. He presented to [facility] Emergency department in November 2017 for chest discomfort similar to previous PCI. He was found to have abnormal cardiac enzymes, and cardiac dysrhythmia consistent with nonsustained wide-complex tachycardia/nonsustained VT. he was admitted for further evaluation. He underwent a heart catheterization that showed 90% stenosis of proximal diagonal 1 and occluded previous placed mid LAD stent. He underwent PTCA/LARY to mid LAD in-stent restenosis. It was recommended he undergo a stress test in 2 weeks to evaluate LCx and PDA. His echocardiogram showed and EF of 55% and left ventricular apical thrombus. He was started on Coumadin and discharged with follow-up. Pt. denies arm, jaw, or neck discomfort. 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 Pt. denies symptoms of CHF, palpitations, lightheadedness, dizziness, near syncope, or syncopal episodes. Pt. denies edema or claudication issues. Pt. denies orthopnea, PND, fever, chills, blood in urine, blood in stool, myalgia, or unexplainable fatigue. He states a few days after discharge he notices chest pain in the evening, but has not noticed this over the past week. Intake Vital Signs12/22/17 Height 5 ft 6 in 12/22/17 Weight: 180 lb 12/22/17 Body Mass Index (BMI) 29.0 12/22/17 Blood Pressure 112/72 12/22/17 Blood Pressure Location Lt brachial Intake Visit Reasons: S/P [facility] PCI Field Captain Required: No Is patient in pain?: No Allergies No Known Allergies Allergy (Verified 12/22/17 09:39) Medications Acetaminophen [Tylenol Tablet] 650 mg PO Q6H PRN PRN tab 12/09/17 [Rx Confirmed 12/22/17] Aspirin E.C. [Ecotrin] 81 mg PO DAILY@0800 tab 12/09/17 [Rx Confirmed 12/22/17] artery care PO BID 12/22/17 [History Confirmed 12/22/17] atorvastatin 40 mg tablet 40 mg PO DAILY #90 tab 12/22/17 [Rx Confirmed 12/22/17] carvedilol 3.125 mg tablet 3.125 mg PO BID #180 tab 12/22/17 [Rx Confirmed 12/22/17] clopidogrel 75 mg tablet 75 mg PO DAILY #90 tab 12/22/17 [Rx Confirmed 12/22/17] lisinopril 5 mg tablet 5 mg PO DAILY #90 tab 12/22/17 [Rx Confirmed 12/22/17] warfarin 2 mg tablet 6 mg PO DAILY #270 tab 12/22/17 [Rx Confirmed 12/22/17] PFSH Medical History Atherosclerosis of [place] coronary artery of [place] heart without angina pectoris (Chronic) LV (left ventricular) mural thrombus (Acute) 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 (Chronic) Non-ST elevation IN (NSTEMI) (Acute) Ventricular tachycardia (paroxysmal) (Acute) Surgical History S/P PTCA (percutaneous transluminal coronary angioplasty) (Chronic) Social History Smoking Status: Never smoker ROS Const Const: Negative for body ache, fever(s), chills, fatigue or weakness ENT ENT: Negative for dizziness Cardio Chest Pain: Yes Palpitations: No Edema: None Muscle aches with walking: None Resp Respiratory: Negative for SOB with activity, SOB at rest, SOB orthopnea\SOB lying down or paroxysmal nocturnal dyspnea GI GI: Negative nausea, black,tarry stools, bright, red blood in stools or vomiting blood/hematemesis : Negative for hematuria or frequent nighttime urination/ nocturia Musc Musc: Negative for muscle aches/ myalgia Skin Skin: Negative non-healing lesions or rash Neuro Neuro: Negative for weakness, dizziness, lightheadedness, near syncope, syncope or orthostatic symptoms Endo Endo: Negative for fatigue Allergy Allergy/Immunology: Negative for rash Cardiology Exam Const Appearance: cooperative, healthy appearing, comfortable and no acute distress Nutritional Appearance: average body habitus and well nourished Orientation: alert, awake and oriented x3 Head Head: normal to inspection Ears: hearing grossly normal bilaterally Nose: external nose normal Face and Sinus: face symmetric Mouth: oral mucosae normal Eyes General: appearance normal, both eyes and all related structures Eyelids: eyelids normal EOM: EOM intact bilaterally Neck Neck: no JVD and normal visual inspection Carotids: normal carotid upstroke Chest Chest inspection: normal inspection of the chest and normal respiratory effort; negative cough Auscultation: Bilateral: Clear to Auscultation Cardio Rate: regular rate Rhythm: regular rhythm Heart sounds: S1 normal and S2 normal; negative rub, gallop or murmur GI GI: normal to inspection Neuro General: alert, awake, oriented x3 and CN's II-XI intact bilaterally Skin Skin: no rashes or lesions noted Extremities Pulses: Normal: Right Posterior Tibial Pulse, Left Posterior Tibial Pulse, Right Radial Pulse, Left Radial Pulse Lower Extremity Edema: None: Bilateral His right groin is soft to palpation drainage. There is light purple and yellow ecchymosis noted. Psych Psychological: normal affect Supplemental Info Heart catheterization from November 2017 showed ejection fraction 55%, left main with 25% stenosis, proximal LAD with mild luminal irregularities, mid LAD with mild calcification and previous placed stent as occluded, diagonal 1 with 90% proximal stenosis, mid LCx is 25% stenosis, RCA with 25% stenosis, and collateral flow from right to left. He underwent successful PTCA/LARY to mid LAD in-stent restenosis. Echocardiogram from November 2017 showed an ejection fraction of 55%, mild mitral annular calcification, trivial mitral valve insufficiency, trivial tricuspid valve insufficiency, mild focal aortic valve calcification, calcified aortic root, RVSP of 29 mmHg, diastolic function is indeterminate, and a left ventricular apical thrombus. Assessment AND Plan 1. Atherosclerosis of [place] coronary artery of [place] heart without angina pectoris I25.10 Successful PTCA/LARY of the mid LAD ISR with a 3.0 x 32 Promus Synergy, post dilated with a 3.0 x 12 NC balloon; 100%-->0%, no dissection 12/06/2017; Plan Patient is hesitant to start cardiac rehab due to time constraints and financial concerns. He is however, willing to start the program and/or talk with cardiac rehab team. He did describe one episode of chest pain at that at this time we will continue to monitor. He will continue with current medications which include carvedilol, lisinopril, aspirin, Plavix, and atorvastatin. He will continue with lifestyle and risk factor modification. Orders Orders: 2. LV (left ventricular) mural thrombus I51.3 Plan His echocardiogram November 2017 showed preserved ejection fraction 55% with a left ventricular apical thrombus. He was started on Coumadin therapy for this. He will have his INR checked later today and recommendations to follow. After discussing with Dr. Erwin he will undergo a repeat echocardiogram in approximately 3 months to evaluate ongoing apical thrombus. He will continue with Coumadin therapy plus aspirin and Plavix in the interim. He was reminded of concerning symptoms to monitor regarding bleeding. Orders Orders: 3. Ventricular tachycardia (paroxysmal) I47.2 Plan There is not appear to be any symptomatic recurrence. He will continue with low-dose beta-michael. We will continue to monitor. Orders Orders: 4. 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 We will re-evaluated after echocardiogram results. Orders Orders: Plan Detail Other Medications New: Refilled: Additional Comments Thank you for allowing us to participate in the patient's plan of care, if you have any questions please do not hesitate to call. This note was generated using a voice recognition system and there may be incorrect words, spelling, or punctuation that were not noted upon reviewing the office note prior to saving. 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 Z79.01 Coding Level of Care Code Off vis,est,level 3 Diagnoses Atherosclerosis of [place] coronary artery of [place] heart without angina pectoris I25.10 LV (left ventricular) mural thrombus I51.3 Ventricular tachycardia (paroxysmal) I47.2 [facility] (current) use of anticoagulants Z79.01 12/22/17 1649 <Electronically signed by Adan TINOCO> Date Adan TINOCO Cosigner Signature: Date (if applicable) CC: Juan R Rowland MD PROTHROMBIN TIME W/INR Collected: 12/22/2017 Status: F Source: [place] 10:37 AM [facility] REPOSITORY Order Comment: Comments: Standing Order Comments: Standing Order TYPE CODE TESTS RESULT OUT OF RANGE REFERENCE UNITS LAB L300.4150 11.7-14.9 SECONDS High PROTIME 28.3 LAB L300.4200 Normal INR 2.6 Performed By: #### L300.3900 #### [facility] Laboratory [address] [place], [address] 12 LEAD ELECTROCARDIOGRAM Observed: 12/15/2017 Status: F Source: [place] 2:40 PM [facility] REPOSITORY [facility] Cardiovascular Services [address] [place] [address] 12 Lead EKG 12/08/17 0506 MR#: [id number] Acct: [id number] Name: JAMA BROWN Rep #: [id number] : 1940 77 From: Familia Erwin MD Attending Dr: Tray Fernandez DO Status: DIS IN Ordering Dr: John Peck MD Date: 12/08/17 Location: [facility] Sex: M C Admitted: 12/06/17 Test Reason : AM EKG Blood Pressure : / mmHG Vent. Rate : 056 BPM Atrial Rate : 056 BPM P-R Int : 200 ms QRS Dur : 112 ms QT Int : 498 ms P-R-T Axes : 049 063 114 degrees QTc Int : [address] AND Marked T wave abnormality, consider anterolateral ischemia Prolonged QT Abnormal ECG When compared with ECG of 07-DEC-2017 05:09, MANUAL COMPARISON REQUIRED, DATA IS UNCONFIRMED Confirmed by FAMILIA ERWIN MD ([id number]), newspaper editor LIN AVILES ([id number]) on 12/15/2017 2:40:03 PM Referred By: NORBERTO Confirmed By:FAMILIA ERWIN MD 12/15/17 1440 Date Familia Erwin MD CC: John Peck MD; Tray Fernandez DO; Juan R Rowland MD Signed 12 LEAD ELECTROCARDIOGRAM Observed: 12/15/2017 Status: F Source: [place] 2:39 PM [facility] REPOSITORY [facility] Cardiovascular Services [address] [place] [address] 12 Lead EKG 12/09/17 0528 MR#: [id number] Acct: [id number] Name: JAMA BROWN Rep #: [id number] : 1940 77 From: Familia Erwin MD Attending Dr: Tray Fernandez DO Status: DIS IN Ordering Dr: John Peck MD Date: 12/09/17 Location: [facility] Sex: M C Admitted: 12/06/17 Test Reason : AM EKG Blood Pressure : / mmHG Vent. Rate : 064 BPM Atrial Rate : 064 BPM P-R Int : 204 ms QRS Dur : 098 ms QT Int : 434 ms P-R-T Axes : 051 063 107 degrees QTc Int : 447 ms Normal sinus rhythm ST AND T wave abnormality, consider anterior ischemia Abnormal ECG When compared with ECG of 08-DEC-2017 05:06, MANUAL COMPARISON REQUIRED, DATA IS UNCONFIRMED Confirmed by FAMILIA ERWIN MD ([id number]), newspaper editor [place]ES ([id number]) on 12/15/2017 2:39:03 PM Referred By: NORBERTO Confirmed By:FAMILIA ERWIN MD 12/15/17 1439 Date Familia Erwin MD CC: John Peck MD; Tray Fernandez DO; Juan R Rowland MD Signed 12 LEAD ELECTROCARDIOGRAM Observed: 12/13/2017 Status: F Source: [place] 9:39 AM [facility] REPOSITORY [facility] Cardiovascular Services [address] [place] [address] 12 Lead EKG 12/06/17 1101 MR#: [id number] Acct: [id number] Name: JAMA BROWN Rep #: [id number] : 1940 77 From: Shlomo Roper MD Attending Dr: Tray Fernandez DO Status: DIS IN Ordering Dr: John Peck MD Date: 12/06/17 Location: [facility] Sex: M C Admitted: 12/06/17 Test Reason : POST PCI Blood Pressure : / mmHG Vent. Rate : 050 BPM Atrial Rate : 050 BPM P-R Int : 200 ms QRS Dur : 114 ms QT Int : 486 ms P-R-T Axes : 030 055 071 degrees QTc Int : 443 ms Sinus bradycardia T wave abnormality, consider anterior ischemia Abnormal ECG When compared with ECG of 06-DEC-2017 04:48, MANUAL COMPARISON REQUIRED, DATA IS UNCONFIRMED Confirmed by SHLOMO ROPER MD ([id number]), newspaper editor LIN AVILES ([id number]) on 12/13/2017 9:38:58 AM Referred By: KATHLEEN Confirmed By:SHLOMO ROPER MD 12/13/17 0939 Date Shlomo Roper MD CC: John Peck MD; Tray Fernandez DO; Juan R Rowland MD Signed 12 LEAD ELECTROCARDIOGRAM Observed: 12/13/2017 Status: F Source: [place] 9:36 AM [facility] REPOSITORY [facility] Cardiovascular Services [address] [place] [address] 12 Lead EKG 12/07/17 0509 MR#: [id number] Acct: [id number] Name: JAMA BROWN Rep #: [id number] : 1940 77 From: Shlomo Roper MD Attending Dr: Tray Fernandez DO Status: DIS IN Ordering Dr: John Peck MD Date: 12/07/17 Location: [facility] Sex: M C Admitted: 12/06/17 Test Reason : AM EKG Blood Pressure : / mmHG Vent. Rate : 056 BPM Atrial Rate : 056 BPM P-R Int : 196 ms QRS Dur : 112 ms QT Int : 480 ms P-R-T Axes : 063 069 104 degrees QTc Int : 463 ms Sinus bradycardia Marked T wave abnormality, consider anterior ischemia Prolonged QT Abnormal ECG When compared with ECG of 06-DEC-2017 11:01, MANUAL COMPARISON REQUIRED, DATA IS UNCONFIRMED Confirmed by JUDSON BENTLEY, SHLOMO ([id number]), newspaper editor [place]ILES ([id number]) on 12/13/2017 9:36:19 AM Referred By: NORBERTO Confirmed By:SHLOMO ROPER MD 12/13/17 0936 Date Shlomo Roper MD CC: John Peck MD; Tray Fernandez DO; Juan R Rowland MD Signed PROTHROMBIN TIME W/INR Collected: 12/11/2017 Status: F Source: [place] 10:43 AM [facility] REPOSITORY Order Comment: Comments: STANDING ORDER Comments: STANDING ORDER TYPE CODE TESTS RESULT OUT OF RANGE REFERENCE UNITS LAB L300.4150 11.7-14.9 SECONDS High PROTIME 21.8 LAB L300.4200 Normal INR 1.9 Performed By: #### L300.3900 #### [facility] [address] [place], [address] DISCHARGE SUMMARY Observed: 12/10/2017 Status: F Source: [place] 3:45 PM [facility] REPOSITORY [facility] Medical Records Department [address] [place] [address] Discharge Summary 12/10/17 1430 MR#: [id number] Acct: [id number] Name: JAMA BROWN Rep #: [id number] : 1940 77 From: Tray Fernandez DO PCP: Juan R Rowland MD Status: DIS IN Y Location: [place] [address] Discharge Date and Diagnosis Date of Admission: 12/06/17 Date of Discharge: 12/09/17 - Primary Discharge Diagnosis 1 acute non-STEMI #2 paroxysmal ventricular tachycardia #3 status post insertion LARY stent LAD postop day #1 #4 hyperlipidemia #5 left ventricular apical thrombus - Secondary Discharge Diagnosis Chronic Problems CAD (coronary artery disease) (Chronic) Successful PTCA/LARY of the mid LAD ISR with a 3.0 x 32 Promus Synergy, post dilated with a 3.0 x 12 NC balloon; 100%-->0%, no dissection 12/06/2017 S/P PTCA (percutaneous transluminal coronary angioplasty) (Chronic) Hospital Course and Treatment Procedures: 2-D Echocardiogram, Cardiac catheterization Summary of Care Provided: The patient is a 77 year old M who was seen in the emergency room at [facility] with a chief complaint of chest pain. Workup in the emergency room included an EKG which showed a sinus rhythm with a rate of 42 no acute ischemic changes, chest x-ray showed no active disease, CBC and BMP were unremarkable, troponin was elevated at 0.184. Patient was given aspirin in the emergency room, patient had been given sublingual nitroglycerin prior to presentation in the emergency room and he stated it helped his chest discomfort and a nitroglycerin infusion was started in the emergency room. Cardiology was contacted he recommended loading the patient with Plavix and placing the patient on a beta-michael, anticoagulation was deferred. Patient was admitted to PCU and enzymes were cycled and he was seen in consultation by cardiology. He was noted to have an 8 beat run of nonsustained V. tach. Patient's cardiac enzymes remained abnormal, he was taken for a cardiac catheterization on the morning of 12/06/17, a successful PTCA/LARY of the mid LAD ISR was carried out. Patient's EF by LV gram was 55%, left main had 20% stenosis, left anterior descending artery showed a mid LAD stent that was occluded with a diagonal with 90% stenosis, circumflex artery had diffuse stenosis of approximately 25% and right coronary artery had diffuse 25% stenosis. Patient was admitted to the ICU after the procedure and his troponins continue to elevate, he had no more chest discomfort however and was finally transferred to PCU for further care. 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 Many discussions were carried out with the patient concerning the importance of continuing this regimen, he finally decided that he would take Coumadin as an outpatient and follow-up with Dr. Erwin. On 12/09/17, patient was seen and examined felt to be in stable condition for discharge home. Further note: At the time of the patient's discharge from the hospital, he was not given a prescription for Lipitor, the patient was contacted after he was discharged and a prescription for Lipitor 40 mg once a day was called in to [facility] [place] on 12/10/17 Discharge Activity: Return to Normal Activity Weight Bearing Status: Full weight bearing Home Medications: Medications to take at Discharge Acetaminophen [Tylenol Tablet] 650 mg PO Q6H PRN PRN tablet 12/09/17 Aspirin E.C. [Ecotrin] 81 mg PO DAILY@0800 tablet 12/09/17 Carvedilol [Coreg (Beta Michael)] 3.125 mg PO BID #60 tab 12/09/17 Clopidogrel Bisulfate [Plavix] 75 mg PO DAILY #30 tab 12/09/17 Enoxaparin Sodium [Lovenox] 120 mg SQ DAILY #3 syringe 12/09/17 Lisinopril [Zestril] 5 mg PO DAILY #30 tab 12/09/17 Warfarin Sodium [Coumadin] 6 mg PO DAILY #90 tab 12/09/17 Following Prescrptions Were Given to Patient: Clopidogrel Bisulfate [Plavix] 75 mg PO DAILY #30 tab Enoxaparin Sodium [Lovenox] 120 mg SQ DAILY #3 syringe Lisinopril [Zestril] 5 mg PO DAILY #30 tab Warfarin Sodium [Coumadin] 6 mg PO DAILY #90 tab Carvedilol [Coreg (Beta Michael)] 3.125 mg PO BID #60 tab Primary Care Physician: Juan R Rowland DO [Primary Care Provider] - Please follow up with your Primary Care Physician in: in 2 weeks Please Follow Up With: Familia Erwin MD When: in two weeks- [phone], get lab done on 12/11/17 and 12/12/17 (INR) Disposition: Home Minutes spent on discharge:: 35 Patient Condition:: Stable Medical Necessity - Tobacco Use Smoking Status: Never smoker Tobacco Use: Non-smoker Meaningful Use Info Meaningful Use Diagnoses (Choose all that apply): AMI - AMI Aspirin given w/in 24hrs of arrival?: Yes ASA at discharge?: Yes Statins at discharge?: Yes Osvaldo/ARB at discharge?: Yes Beta Michael at discharge?: Yes Done w/ Acute IN measure.: Yes Code Visit Inpatient E AND M: 78058 Disch Hosp 12/10/17 1545 <Electronically signed by Tray Fernandez DO> Date Tray Fernandez DO Cosigner Signature (if applicable): Date CC: Tray Fernandez DO; Juan R Rowland MD Signed DISCHARGE INSTRUCTION Observed: 12/09/2017 Status: F Source: [place] 10:27 AM [facility] REPOSITORY [facility] Medical Records Department [address] [place] [address] Instructions for Home/Discharge Instructions 12/09/17 1019 MR#: [id number] Acct: [id number] Name: JAMA BROWN Rep #: [id number] : 1940 77 From: Tray Fernandez DO PCP: Juan R Rowland MD Status: ADM IN - Discharge Diagnoses Current Active Problems: Current Active and Chronic Problems Non-ST elevation IN (NSTEMI) (Acute) Ventricular tachycardia (paroxysmal) (Acute) CAD (coronary artery disease) (Chronic) Successful PTCA/LARY of the mid LAD ISR with a 3.0 x 32 Promus Synergy, post dilated with a 3.0 x 12 NC balloon; 100%-->0%, no dissection 12/06/2017 S/P PTCA (percutaneous transluminal coronary angioplasty) (Chronic) You will use the following diet at home:: No restrictions Your food should be the consistency of: Regular Your liquids should be the consistency of: Regular/Thin Discharge Activity: Return to Normal Activity Weight Bearing Status: Full weight bearing Additional Instructions: Start Plavix (clopidogrel) on 12/10/17. do not take your lovenox injection on 12/11/17 until you get your lab done and get the result. Take only Tylenol for pain Allergies/Adverse Reactions: Allergies No Known Allergies Allergy (Verified 12/06/17 01:41) Medications to take at Discharge Acetaminophen [Tylenol Tablet] 650 mg PO Q6H PRN PRN tablet 12/09/17 Aspirin E.C. [Ecotrin] 81 mg PO DAILY@0800 tablet 12/09/17 Carvedilol [Coreg (Beta Michael)] 3.125 mg PO BID #60 tab 12/09/17 Clopidogrel Bisulfate [Plavix] 75 mg PO DAILY #30 tab 12/09/17 Enoxaparin Sodium [Lovenox] 120 mg SQ DAILY #3 syringe 12/09/17 Lisinopril [Zestril] 5 mg PO DAILY #30 tab 12/09/17 Warfarin Sodium [Coumadin] 6 mg PO DAILY #90 tab 12/09/17 The following prescriptions were given: Clopidogrel Bisulfate [Plavix] 75 mg PO DAILY #30 tab Enoxaparin Sodium [Lovenox] 120 mg SQ DAILY #3 syringe Lisinopril [Zestril] 5 mg PO DAILY #30 tab Warfarin Sodium [Coumadin] 6 mg PO DAILY #90 tab Carvedilol [Coreg (Beta Michael)] 3.125 mg PO BID #60 tab Primary Care Physician: Juan R Rowland DO [Primary Care Provider] - Please follow up with your Primary Care Physician in: in 2 weeks Test Results: Test results from this visit will be discussed in further detail at your follow-up appointment, if applicable. Please Follow Up With: Familia Erwin MD When: in two weeks- [phone], get lab done on 12/11/17 and 12/12/17 (INR) 12/09/17 1027 <Electronically signed by Tray Tereletsky DO> Date Tray Fernandez DO CC: Juan R Rowland MD; Familia Erwin MD PROTHROMBIN TIME W/INR Collected: 12/09/2017 Status: F Source: [place] 5:38 AM [facility] REPOSITORY TYPE CODE TESTS RESULT OUT OF RANGE REFERENCE UNITS LAB L300.4150 11.7-14.9 SECONDS High PROTIME 17.7 LAB L300.4200 Normal INR 1.5 Performed By: #### L300.3900, L300.4310 #### [facility] Laboratory [address] [place], [place], [address] PARTIAL THROMBOPLAST Collected: 12/09/2017 Status: F Source: [place] TIME 5:38 AM [facility] REPOSITORY TYPE CODE TESTS RESULT OUT OF REFERENCE UNITS RANGE LAB L300.4310 24.1-36.2 Seconds High PTT 75.2 Performed By: #### L300.3900, L300.4310 #### [facility] Laboratory [address] [place], [place], [address] BASIC METABOLIC Collected: 12/09/2017 Status: F Source: [place] PROFILE (BMP) 5:38 AM [facility] REPOSITORY TYPE CODE TESTS RESULT OUT OF RANGE REFERENCE UNITS LAB L501.0100 74-106 mg/dL Normal GLU 95 Result Comment: Please note revised GLUCOSE reference range effective 2017. LAB L501.1000 7-18 mg/dL Normal BUN 17 LAB L501.1100 0.70-1.30 mg/dL Normal CREAT,SERUM 0.90 Result Comment: The validity of the calculated GFR AND GFRAA in patients over 70 years has not been determined. Clinical correlation is essential. LAB L501.1110 >60 mL/min Normal EST GFR 87 Result Comment: Non- GFR Calc LAB L501.1115 >60 mL/min Normal EST GFR - AA 106 Result Comment: GFR Calc LAB L501.1255 ml/min Normal Estimated CRCL 66.50 LAB L501.1300 10-20 RATIO Normal BUN/CRE 19.0 LAB L501.2200 8.5-10 mg/dL Normal .1 CA 8.5 LAB L501.5300 136-14 mmol/L Normal 5 NA 143 LAB L501.5600 3.5-5. mmol/L Normal 1 K 3.7 LAB L501.5900 98-107 mmol/L High CL 108 LAB L501.6100 21.0-3 mmol/L Normal 2.0 CO2 27.0 LAB L501.6200 5-15 Normal GAP 8 Performed By: #### L500.2500 #### [facility] Laboratory [address] [place], [address] PARTIAL THROMBOPLAST Collected: 12/09/2017 Status: F Source: [place] TIME 12:05 AM [facility] REPOSITORY Order Comment: Comments: heparin gtt TYPE CODE TESTS RESULT OUT OF REFERENCE UNITS RANGE LAB L300.4310 24.1-36.2 Seconds High PTT 61.0 Performed By: #### L300.4310 #### [facility] Laboratory [facility] [place], [address] PARTIAL THROMBOPLAST Collected: 12/08/2017 Status: F Source: [place] TIME 6:15 PM [facility] REPOSITORY Order Comment: Comments: heparin gtt TYPE CODE TESTS RESULT OUT OF REFERENCE UNITS RANGE LAB L300.4310 24.1-36.2 Seconds High PTT 66.8 Performed By: #### L300.4310 #### [facility] Laboratory [address] [place], [address] PARTIAL THROMBOPLAST Collected: 12/08/2017 Status: F Source: [place] TIME 12:10 PM [facility] REPOSITORY TYPE CODE TESTS RESULT OUT OF REFERENCE UNITS RANGE LAB L300.4310 24.1-36.2 Seconds High PTT 69.9 Performed By: #### L300.4310 #### [facility] Laboratory [address] [place], [address] CBC W/DIFF, AUTOMATED Collected: 12/08/2017 Status: F Source: [place] 5:25 AM [facility] REPOSITORY TYPE CODE TESTS RESULT OUT OF RANGE REFERENCE UNITS LAB L100.1000 4.4-11.0 K/mm3 Normal WBC 7.3 LAB L100.1200 4.6-6.2 M/mm3 Low RBC 4.32 LAB L100.1300 13.0-16.5 g/dl Normal HGB 13.5 LAB L100.1400 40-54 % Normal HCT 40.0 LAB L100.1500 80-94 fL Normal MCV 92.6 LAB L100.1600 27.0-32.0 pg Normal MCH 31.3 LAB L100.1700 32-36 g/gl Normal MCHC 33.8 LAB L100.1810 11.6-14.6 % Normal RDW CV 12.5 LAB L100.1820 35.1-43.9 fl Normal RDW SD 42.0 LAB L100.1900 150-450 K/mm3 Normal PLT 157 LAB L100.2000 6.2-12.0 fl Normal MPV 9.9 LAB L100.2100 47-70 % Normal NEUT% 61.3 LAB L100.2200 19-41 % Normal LY% 20.8 LAB L100.2300 0-10 % Normal MONO% 10.0 LAB L100.2400 0-5 % High EO% 7.4 LAB L100.2500 0-1 % Normal BASO% 0.4 LAB L100.2550 0.0-0.9 % Normal IM GRAN % 0.100 Result Comment: IG% - Immature Granulocytes (promyelocytes, myelocytes and metamyelocytes) > 1% indicates that a LEFT SHIFT is Present. LAB L100.2620 2.0-7.7 X10 3/uL Normal Absolute Neut 4.5 LAB L100.2720 0.83-4.51 X10 3/ul Normal Absolute Lymph 1.51 Performed By: #### L100.0100 #### [facility] Laboratory [address] [place], [address] BASIC METABOLIC Collected: 12/08/2017 Status: F Source: [place] PROFILE (BMP) 5:25 AM [facility] REPOSITORY TYPE CODE TESTS RESULT OUT OF RANGE REFERENCE UNITS LAB L501.0100 74-106 mg/dL Normal GLU 101 Result Comment: Fasting Glucose result from 100 to 125 mg/dL suggests IMPAIRED HOMEOSTASIS per A.D.A. criteria. Please note revised GLUCOSE reference range effective 2017. LAB L501.1000 7-18 mg/dL Normal BUN 16 LAB L501.1100 0.70-1.30 mg/dL Normal CREAT,SERUM 0.97 Result Comment: The validity of the calculated GFR AND GFRAA in patients over 70 years has not been determined. Clinical correlation is essential. LAB L501.1110 >60 mL/min Normal EST GFR 80 Result Comment: Non- GFR Calc LAB L501.1115 >60 mL/min Normal EST GFR - AA 97 Result Comment: GFR Calc LAB L501.1255 ml/min Normal Estimated CRCL 61.70 LAB L501.1300 10-20 RATIO Normal BUN/CRE 16.5 LAB L501.2200 8.5-10 mg/dL Low .1 CA 8.3 LAB L501.5300 136-14 mmol/L Normal 5 NA 144 LAB L501.5600 3.5-5. mmol/L Normal 1 K 3.7 LAB L501.5900 98-107 mmol/L High CL 108 LAB L501.6100 21.0-3 mmol/L Normal 2.0 CO2 28.0 LAB L501.6200 5-15 Normal GAP 8 Performed By: #### L500.2500 #### [facility] Laboratory [address] [place], [address] PARTIAL THROMBOPLAST Collected: 12/08/2017 Status: F Source: [place] TIME 5:25 AM [facility] REPOSITORY TYPE CODE TESTS RESULT OUT OF REFERENCE UNITS RANGE LAB L300.4310 24.1-36.2 Seconds High alert PTT 156.4 Result Comment: CRITICAL VALUE VERIFIED. CALLED TO ABBEY 12/08/17 0635 Olga Montano. RESULTS READ BACK BY SAME . Performed By: #### L300.4310 #### [facility] Laboratory [address] [place], [address] ECHO, COMPLETE W/ Observed: 12/07/2017 Status: F Source: [place] CONTRAST 9:27 PM [facility] REPOSITORY [facility] Cardiovascular Services [address] [place] [address] Echo Complete W/ Contrast 12/07/17 1403 MR#: [id number] Acct: [id number] Name: JAMA BROWN Rep #: [id number] : 1940 77 From: Familia Erwin MD Attending Dr: Tray Fernandez DO Status: ADM IN Ordering Dr: Familia Erwin MD Date: 12/07/17 Location: ICU Sex: M C Admitted: 12/06/17 Reason For Study: S/P IN Procedure This was a 2D Doppler, Color Flow transthoracic echocardiogram. The study was technically difficult. Contrast injection was performed. Exam performed portable in ICU/CCU. Left Ventricle Normal LV size. Mild concentric left ventricular hypertrophy. Segmental dysfunction with preserved ejection fraction (see wall motion). The estimated ejection fraction is 55 %. Diastolic function is indeterminate. Mid-Anterior : Hypokinetic. Mid-anteroseptal : Akinetic. [place] : Akinetic. Right Ventricle Normal RV size. Normal systolic function. Atria Normal left atrium. Normal right atrium. No doppler evidence for ASD. Mitral Valve There is mild mitral annular calcification. Normal mitral valve. Trivial mitral valve insufficiency. Tricuspid Valve Normal tricuspid valve. Trivial tricuspid valve insufficiency. Right ventricular systolic pressure estimated to be 29 mmHg. Aortic Valve Trisinus/trileaflet aortic valve. Mild focal aortic valve calcification. Pulmonic Valve The pulmonic valve is not well visualized. Great Vessels Normal sized aortic root. Calcified aortic root. Pericardium/Pleural No pericardial effusion. Medication Diluted definity 4ml given slow IV push to enhance endocardial definition. MMode/2D Measurements AND Calculations LVIDd: 4.7 cm IVSd: 1.3 cm LVOT diam: 2.0 cm LVIDs: 2.2 cm LVPWd: 1.4 cm LVOT area: 3.3 cm2 FS: 54.4 % Ao root diam: 3.9 cm LAV(MOD-sp4): 54.0 ml LA A4 area: 19.4 cm2 LA dimension: 3.9 cm RA A4 area: 12.7 cm2 Time Measurements MV dec time: 0.26 sec Doppler Measurements AND Calculations MV E max lai: 78.0 cm/sec Lat Peak E' Lai: 7.7 cm/sec Med Peak E' Lai: 7.9 cm/sec MV A max lai: 88.8 cm/sec E/E' lat: 10.2 E/E' med: 9.9 MV E/A: 0.88 MV V2 max: 101.1 cm/sec MV P1/2t max lai: 92.5 cm/sec Ao V2 max: 151.2 cm/sec MV max P.1 mmHg MV P1/2t: 78.9 msec Ao max P.1 mmHg MV V2 mean: 59.9 cm/sec MV dec slope: 343.0 cm/sec2 Ao V2 mean: 106.6 cm/sec MV mean P.6 mmHg MVA(P1/2t): 2.8 cm2 Ao mean P.1 mmHg MV V2 VTI: 33.3 cm Ao V2 VTI: 30.7 cm MVA(VTI): 2.4 cm2 [place](I,D): 2.5 cm2 [place](V,D): 2.3 cm2 LV V1 max: 107.9 cm/sec SV(LVOT): 78.3 ml PA V2 max: 93.7 cm/sec LV V1 max P.7 mmHg LV V1 mean P.6 mmHg LV V1 mean: 76.3 cm/sec LV V1 VTI: 23.8 cm TR max lai: 254.7 cm/sec TR max P.9 mmHg Interpretation Summary The study was technically difficult. Contrast injection was performed. Segmental dysfunction with preserved ejection fraction (see wall motion). The estimated ejection fraction is 55 %. There is mild mitral annular calcification. Trivial mitral valve insufficiency. Trivial tricuspid valve insufficiency. Mild focal aortic valve calcification. Calcified aortic root. Right ventricular systolic pressure estimated to be 29 mmHg. Diastolic function is indeterminate. 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 Ordering Physician: Familia Erwin Referring Physician: JUAN R ROWLAND Performed By: Gregorio Tran RCS 12/07/172126 Date Familia Erwin MD CC: Tray Fernandez DO; Juan R Rowland MD; Familia Erwin MD Date Dictated: 12/07/17 140 Date Transcribed: 12/07/172126 Psychologists: Signed 12 LEAD ELECTROCARDIOGRAM Observed: 12/07/2017 Status: F Source: [place] 2:25 PM [facility] REPOSITORY [facility] Cardiovascular Services [address] [place] [address] 12 Lead EKG 12/06/17 0448 MR#: [id number] Acct: [id number] Name: JAMA BROWN Rep #: [id number] : 1940 77 From: Shlomo Roper MD Attending Dr: Tray Fernandez DO Status: ADM IN Ordering Dr: Rufus Main MD Date: 12/06/17 Location: ICU Sex: M C Admitted: 12/06/17 Test Reason : ADMISSION CP Blood Pressure : / mmHG Vent. Rate : 058 BPM Atrial Rate : 058 BPM P-R Int : 204 ms QRS Dur : 108 ms QT Int : 440 ms P-R-T Axes : 041 028 036 degrees QTc Int : 431 ms Sinus bradycardia Otherwise normal ECG When compared with ECG of 06-DEC-2017 03:08, MANUAL COMPARISON REQUIRED, DATA IS UNCONFIRMED Confirmed by JUDSON BENTLEY, SHLOMO ([id number]), newspaper editor LIN AVILES ([id number]) on 12/07/2017 2:25:35 PM Referred By: BRYNN Confirmed By:SHLOMO ROPER MD 12/07/17 1425 Date Shlomo Roper MD CC: Rufus Main MD; Tray Fernandez DO; Juan R Rowland MD Signed 12 LEAD ELECTROCARDIOGRAM Observed: 12/07/2017 Status: F Source: [place] 1:13 PM [facility] REPOSITORY [facility] Cardiovascular Services [address] [place] [address] 12 Lead EKG 12/06/17 0308 MR#: [id number] Acct: [id number] Name: JAMA BROWN Rep #: [id number] : 1940 77 From: Shlomo Roper MD Attending Dr: Tray Fernandez DO Status: ADM IN Ordering Dr: Nino Devine MD Date: 12/06/17 Location: ICU Sex: M C Admitted: 12/06/17 Test Reason : CP REPEAT Blood Pressure : / mmHG Vent. Rate : 065 BPM Atrial Rate : 065 BPM P-R Int : 200 ms QRS Dur : 110 ms QT Int : 430 ms P-R-T Axes : 025 032 017 degrees QTc Int : 447 ms Normal sinus rhythm with sinus arrhythmia Normal ECG Confirmed by SHLOMO ROPER MD ([id number]), LIN Ladd ([id number]) on 12/07/2017 1:12:52 PM Referred By: GUY Confirmed By:SHLOMO ROPER MD 12/07/171311 Date Shlomo Roper MD CC: Nino Devine MD; Tray Fernandez DO; Juan R Rowland MD Signed 12 LEAD ELECTROCARDIOGRAM Observed: 12/07/2017 Status: F Source: [place] 1:12 PM [facility] REPOSITORY [facility] Cardiovascular Services [address] [place] [address] 12 Lead EKG 12/06/17 0142 MR#: [id number] Acct: [id number] Name: JAMA BORWN Rep #: [id number] : 1940 77 From: Shlomo Roper MD Attending Dr: Tray Fernandez DO Status: ADM IN Ordering Dr: Nino Devine MD Date: 12/06/17 Location: ICU Sex: M C Admitted: 12/06/17 Test Reason : CP Blood Pressure : / mmHG Vent. Rate : 062 BPM Atrial Rate : 062 BPM P-R Int : 202 ms QRS Dur : 112 ms QT Int : 418 ms P-R-T Axes : 037 049 034 degrees QTc Int : 424 ms Normal sinus rhythm Normal ECG Confirmed by SHLOMO ROPER MD ([id number]), newspaper editor LIN AVILES ([id number]) on 12/07/2017 1:12:36 PM Referred By: GUY Confirmed By:SHLOMO ROPER MD 12/07/171311 Date Shlomo Roper MD CC: Nino Devine MD; Tray Fernandez DO; Juan R Rowland MD Signed TROPONIN-I Collected: 12/07/2017 Status: F Source: [place] 9:35 AM [facility] REPOSITORY TYPE CODE TESTS RESULT OUT OF RANGE REFERENCE UNITS LAB L501.4010 <0.045 ng/mL High alert 2.840 TROPONIN-I Result Comment: Critical Result(s) Called at: 10:09:20 12/07/2017 by: Cecilia Hernandez TROPONIN-I EXPECTED VALUES <0.045 Negative 0.045 - 0.590 Consistent with Cardiac Damage > OR = 0.600 Critical Value Not every elevated troponin is indicative of IN. These values should be used with clinical judgement in examining the patient's clinical picture for diagnosis. To establish a diagnosis of IN versus myocardial injury, there must be a demonstrated rise and/or fall in the troponin values, in addition to ischemic symptoms, EKG changes, new regional wall motion abnormality, and/or angiographical evidence. PLEASE NOTE: REFERENCE RANGES EDITED 17 Performed By: #### L501.4010 #### [facility] [place] [place], [address] BASIC METABOLIC Collected: 12/07/2017 Status: F Source: [place] PROFILE (BMP) 4:33 AM [facility] REPOSITORY TYPE CODE TESTS RESULT OUT OF RANGE REFERENCE UNITS LAB L501.0100 74-106 mg/dL Normal GLU 104 Result Comment: Fasting Glucose result from 100 to 125 mg/dL suggests IMPAIRED HOMEOSTASIS per A.D.A. criteria. Please note revised GLUCOSE reference range effective 2017. LAB L501.1000 7-18 mg/dL Normal BUN 15 LAB L501.1100 0.70-1.30 mg/dL Normal CREAT,SERUM 0.96 Result Comment: The validity of the calculated GFR AND GFRAA in patients over 70 years has not been determined. Clinical correlation is essential. LAB L501.1110 >60 mL/min Normal EST GFR 81 Result Comment: Non- GFR Calc LAB L501.1115 >60 mL/min Normal EST GFR - AA 98 Result Comment: GFR Calc LAB L501.1255 ml/min Normal Estimated CRCL 62.34 LAB L501.1300 10-20 RATIO Normal BUN/CRE 15.6 LAB L501.2200 8.5-10 mg/dL Low .1 CA 8.4 LAB L501.5300 136-14 mmol/L Normal 5 NA 144 LAB L501.5600 3.5-5. mmol/L Normal 1 K 4.0 LAB L501.5900 98-107 mmol/L High CL 108 LAB L501.6100 21.0-3 mmol/L Normal 2.0 CO2 28.0 LAB L501.6200 5-15 Normal GAP 8 Performed By: #### L500.2500 #### [facility] Laboratory [address] [place], [place], [address] CBC-COMPLETE BLOOD CNT Collected: 12/07/2017 Status: F Source: [place] NO DIFF 4:33 AM [facility] REPOSITORY TYPE CODE TESTS RESULT OUT OF RANGE REFERENCE UNITS LAB L100.1000 4.4-11.0 K/mm3 Normal WBC 8.3 LAB L100.1200 4.6-6.2 M/mm3 Low RBC 4.45 LAB L100.1300 13.0-16.5 g/dl Normal HGB 14.2 LAB L100.1400 40-54 % Normal HCT 41.1 LAB L100.1500 80-94 fL Normal MCV 92.4 LAB L100.1600 27.0-32.0 pg Normal MCH 31.9 LAB L100.1700 32-36 g/gl Normal MCHC 34.5 LAB L100.1810 11.6-14.6 % Normal RDW CV 12.2 LAB L100.1820 35.1-43.9 fl Normal RDW SD 40.7 LAB L100.1900 150-450 K/mm3 Normal PLT 179 LAB L100.2000 6.2-12.0 fl Normal MPV 9.3 Performed By: #### L100.0500 #### [facility] Laboratory [address] [place], [place], [address] TROPONIN-I Collected: 12/07/2017 Status: F Source: [place] 4:33 AM [facility] REPOSITORY Order Comment: Comments: Add to Todays AM labs TYPE CODE TESTS RESULT OUT OF RANGE REFERENCE UNITS LAB L501.4010 <0.045 ng/mL High alert 4.060 TROPONIN-I Result Comment: Critical Result(s) Called at: 08:11:13 12/07/2017 by: Cecilia Chanel to [facility] TROPONIN-I EXPECTED VALUES <0.045 Negative 0.045 - 0.590 Consistent with Cardiac Damage > OR = 0.600 Critical Value Not every elevated troponin is indicative of IN. These values should be used with clinical judgement in examining the patient's clinical picture for diagnosis. To establish a diagnosis of IN versus myocardial injury, there must be a demonstrated rise and/or fall in the troponin values, in addition to ischemic symptoms, EKG changes, new regional wall motion abnormality, and/or angiographical evidence. PLEASE NOTE: REFERENCE RANGES EDITED 17 Performed By: #### L501.4010 #### [facility] [facility] [address] [place], [place], [address] URINALYSIS, ROUTINE Collected: 12/07/2017 Status: F Source: [place] (DIPSTICK) 4:15 AM [facility] REPOSITORY Order Comment: How was Urine Obtained? CLEAN CATCH TYPE CODE TESTS RESULT OUT OF RANGE REFERENCE UNITS LAB L400.3000 Yellow COLOR Normal Yellow LAB L400.3050 Clear Normal CLARITY Clear LAB L400.3200 Normal mg/dl Normal GLUCOSE, UR Normal LAB L400.3300 Negative mg/dL Normal BILIRUBIN URINE Negative LAB L400.3400 Negative mg/dl Normal KETONE UR Negative LAB L400.3465 1.002-1.030 Normal SP.GR. DIPSTX 1.010 LAB L400.3550 5.0 - 8.0 pH UR Normal 7.0 LAB L400.3600 Negative mg/dl PROT Normal DIPSTX Negative LAB L400.3700 Normal mg/dl Normal UROBILI Normal LAB L400.3750 Negative Normal NITRITE UR Negative LAB L400.3780 Negative /ul High 10 OCCULT BLOOD-UR LAB L400.3800 Negative /ul High LEUK ESTERASE 500 Performed By: #### L400.2010 #### [facility] [address] [place], [address] CONSULTATION Observed: 12/06/2017 Status: F Source: [place] 2:55 PM [facility] REPOSITORY [facility] Medical Records Department [address] [place] [address] Consultation 12/06/17 0757 MR#: [id number] Acct: [id number] Name: JAMA BROWN Rep #: [id number] : 1940 77 From: Familia Erwin MD PCP: Juan R Rowland MD Status: ADM IN Y Location: ICU ICU09-1 Problem List (1) Non-ST elevation IN (NSTEMI) Status: Acute (2) Ventricular tachycardia (paroxysmal) Status: Acute (3) CAD (coronary artery disease) Status: Chronic Qualifiers: Coronary Disease-Associated Artery/Lesion type: asa'[place] artery (4) S/P PTCA (percutaneous transluminal coronary angioplasty) Status: Chronic Reason for Consult Date of Consultation: 12/06/17 History of Present Illness: The patient is a 77 year old white male with a past medical history of CAD status post PCI who presents for evaluation of chest discomfort reminiscent of his previous symptoms with subsequent findings of abnormal cardiac enzymes, cardiac dysrhythmia with nonsustained wide complex tachycardia/nonsustained VT, and an abnormal ECG. His previous cardiovascular event occurred in approximately 2002. He continue with outpatient follow-up for period of time. He subsequently elected not to continue with outpatient follow- up locally. He then states he was being evaluated by cardiology and [place], [place] for period of time. During this time he recalls being on aspirin therapy. He does not recall undergoing any other diagnostic testing other than ECGs. He states that recently he has been having exertional and now resting chest discomfort which she describes as a heartburn-like sensation. He has had intermittent left upper extremity discomfort. He also notes an element of shortness of breath and dyspnea occurring with his symptoms. He has denied any orthopnea, PND, peripheral pitting edema, palpitations, near syncope or syncope. He presented to [facility] emergency department for further evaluation. He was noted to have indeterminate troponin I levels. His ECG demonstrated sinus rhythm with concerns of nonspecific ST and T-wave abnormality. He was placed in the PCU on medical management for further evaluation care. Since being in the PCU on medical management which has included IV nitroglycerin he states he does feel better. He has been noted to have continued indeterminate troponin I levels. His ECGs have demonstrated nonspecific ST and T-wave abnormality. His cardiac rhythm demonstrated an episode of nonsustained wide complex tachycardia compatible with nonsustained ventricular tachycardia of approximately 8 beats in duration. [] Past Medical History Allergies/Adverse Reactions: Allergies No Known Allergies Allergy (Verified 12/06/17 01:41) Home Medications: Ambulatory Orders Medication Instructions Recorded NK [NK] 12/06/17 Past Medical History (Chronic Problems): Chronic Problems CAD (coronary artery disease) (Chronic) S/P PTCA (percutaneous transluminal coronary angioplasty) (Chronic) Surgical History: no surgical history - *Family History Paternal History Items: Heart Disease Maternal History Items: No pertinent history Lives: Spouse/ Significant Other Smoking Status: Never smoker Tobacco Use: Non-smoker Alcohol: None Review of Systems - Review of Systems General: Denies: Fever, Night Sweats, Fatigue Cardiovascular: Reports: Chest Discomfort, Chest Discomfort at Rest, Chest Discomfort with Exertion, Shortness of Breath with Exertion Respiratory: Reports: Shortness of Breath. Denies: Cough, Sputum Production, Hemoptysis Gastrointestinal: Reports: Heart Burn. Denies: Hematemesis, Hematochezia, Melena Genitourinary: Denies: Dysuria, Hematuria Skin: Denies: Rash Subjectve: This is a 77-year-old white male who appears to be resting comfortably at this time in no acute distress. Objective: Vital Signs Temp Pulse Resp BP Pulse Ox 98.0 F 52 L 16 117/81 H 96 12/06/17 05:00 12/06/17 07:00 12/06/17 07:00 12/06/17 07:00 12/06/17 07:00 Oxygen Delivery Method Room Air Weight: 183 lb 13.848 oz Body Mass Index (BMI) 27.9 General: Awake, Alert, Oriented x 3, Cooperative, No Acute Distress HEENT: Atraumatic, Normocephalic, PERRL, EOMI, Sclera Non Icteric Oral: Moist Mucosa Neck: Supple, Good ROM, No JVD Lungs: Clear to auscultation Cardiovascular: Regular Rhythm, Normal S1, Normal S2, Positive S4 Vascular: No Carotid Bruits Abdomen: Bowel Sounds Present, Soft, Non Tender Extremities: No Cyanosis, No Clubbing, No edema Neurological: No Focal Motor or Sensory Deficit Psych/Mental Status: Appropriate, Normal Affect 12/06/17 05:46: Triglycerides 82, Cholesterol 147, LDL Cholesterol 94, VLDL Cholesterol 16, HDL Cholesterol 37 L 12/06/17 05:46: PT 15.2 H, INR 1.2, APTT 32.6 12/06/17 05:46: Troponin I 0.475 H Rhythm: As noted above EKG: As noted above CXR: Preliminary evaluation: No acute cardiopulmonary disease appreciated Assessment/Plan 1. Acute non-ST segment elevation IN The patient presents with concerns based upon his history, his ongoing symptoms, his cardiac enzymes, his cardiac dysrhythmia, his ECG, of an acute non- ST segment elevation IN. At the present time he is continuing to be monitored. He is continuing medical management. The recommendation has been made for further evaluation with diagnostic cardiac catheterization. The procedure and risks were discussed with the patient. He was agreeable to this approach. 2. Paroxysmal ventricular tachycardia The patient has had an episode of nonsustained wide complex tachycardia appearing compatible with nonsustained VT of approximately 8 beats in duration. This could be secondary to underlying CAD and myocardial ischemia. He will continue to be monitored. He is being treated medically including beta-michael therapy. Been recommended for further evaluation with diagnostic cardiac catheterization which may lead to additional revascularization therapy. 3. CAD status post PCI-remote The patient has a history of CAD status post a remote PCI. He now presents back with the aforementioned concerns. He has been on aspirin therapy. He is now been placed back on additional medical management including antiplatelet therapy. He is being recommended for further evaluation with diagnostic cardiac catheterization. Comment: The above was discussed with the patient and his family members present. This note was generated with [employer] dictation software. It may contain incorrect words, spelling, and punctuation that were not noted in checking the note before signing. 12/06/17 1455 <Electronically signed by Familia Erwin MD> Date Familia Erwin MD Cosigner Signature (if applicable): Date CC: Juan R Rowland MD; Familia Erwin MD Signed ACT ACTIVATED CLOTTING Collected: 12/06/2017 Status: F Source: [place] TIME 10:09 AM [facility] REPOSITORY TYPE CODE TESTS RESULT OUT OF RANGE REFERENCE UNITS LAB L9100.0100 74-137 sec High ACTk CLOT 158 TIME Performed By: #### L9100.0100 #### [facility] Point of Care [address] [place] [place] [address] TROPONIN-I Collected: 12/06/2017 Status: F Source: [place] 8:00 AM [facility] REPOSITORY Order Comment: 'TROP' Serial specimen #1, #2 or #3: 3 TYPE CODE TESTS RESULT OUT OF RANGE REFERENCE UNITS LAB L501.4010 <0.045 ng/mL High alert 0.882 TROPONIN-I Result Comment: Critical Result(s) Called to JOSSY Flores at: 08:27:42 12/06/2017 by: BLAINE BOURNE TROPONIN-I EXPECTED VALUES <0.045 Negative 0.045 - 0.590 Consistent with Cardiac Damage > OR = 0.600 Critical Value Not every elevated troponin is indicative of IN. These values should be used with clinical judgement in examining the patient's clinical picture for diagnosis. To establish a diagnosis of IN versus myocardial injury, there must be a demonstrated rise and/or fall in the troponin values, in addition to ischemic symptoms, EKG changes, new regional wall motion abnormality, and/or angiographical evidence. PLEASE NOTE: REFERENCE RANGES EDITED 17 Performed By: #### L501.4010 #### [facility] [address] [place], [place], [address] LIPID PROFILE Collected: 12/06/2017 Status: F Source: [place] 5:46 AM [facility] REPOSITORY TYPE CODE TESTS RESULT OUT OF RANGE REFERENCE UNITS LAB L501.4900 200 mg/dL Normal CHOL 147 Result Comment: <200 mg/dL Desirable 200-240 mg/dL Borderline >240 mg/dL High Risk LAB L501.5000 mg/dL Normal TRIG 82 Result Comment: The drugs N-Acetylcysteine and Metamizole may falsely depress this assay. Serum Triglycerides Reference Interval Normal <150 mg/dL Borderline high 150 - 199 mg/dL High 200 - 499 mg/dL Very High > or = 500 mg/dL LAB L501.6400 mg/dL Low HDL 37 Result Comment: The drugs N-Acetylcysteine and Metamizole may falsely depress this assay. Reference Range HDL <40 mg/dL Low HDL Cholesterol HDL >or= 60 mg/dL High HDL Cholesterol LAB L501.6500 0-130 mg/dL Normal LDL 94 LAB L501.6600 5-40 mg/dL Normal VLDL 16 Performed By: #### L500.4100 #### [facility] [address] [place], [address] PROTHROMBIN TIME W/INR Collected: 12/06/2017 Status: F Source: [place] 5:46 AM [facility] REPOSITORY TYPE CODE TESTS RESULT OUT OF RANGE REFERENCE UNITS LAB L300.4150 11.7-14.9 SECONDS High PROTIME 15.2 LAB L300.4200 Normal INR 1.2 Performed By: #### L300.3900, L300.4310 #### [facility] [address] [place], [address] PARTIAL THROMBOPLAST Collected: 12/06/2017 Status: F Source: [place] TIME 5:46 AM [facility] REPOSIT[facility] TYPE CODE TESTS RESULT OUT OF RANGE REFERENCE UNITS LAB L300.4310 24.1-36.2 Seconds Normal PTT 32.6 Performed By: #### L300.3900, L300.4310 #### [facility] [address] [place], [address] HISTORY AND PHYSICAL Observed: 12/06/2017 Status: F Source: [place] EXAM 4:44 AM [facility] REPOSITORY [facility] Medical Records Department [address] [place] [address] History and Physical 12/06/17 0341 MR#: [id number] Acct: [id number] Name: JAMA BROWN Rep #: [id number] : 1940 77 From: Rufus Main MD PCP: Juan R Rowland MD Status: ADM IN Location: [place] [id number] Problem List (1) Non-ST elevation IN (NSTEMI) Status: Acute History of Present Illness Date of Admission: 12/06/17 Chief Complaint: Chest pain 1 week The patient is a 77 year old M with a significant history of CAD status post stents who presents with progressively worsening nonradiating substernal chest pain that started about a week ago. Patient reported that he noticed his chest pain after running or walking. His chest pain was alleviated with slowing down his activity. The patient described the severity of the chest pain as: enough to feel it. He characterizes it as a discomfort. Associated with his symptoms is shortness of breath; and a one-time episode of diaphoresis. Patient was given nitroglycerin by EMS any chest pain improved. At emergency department his troponin was elevated. EKG was unremarkable. He was given aspirin 324 mg. ED doctor reports that he talked to Dr. Erwin, cardiology. The plan for the conversation was that the patient's likely will have cardiac cath on same day of admission (morning); and a therapeutic dose of anticoagulation should not be started. Emergency department patient received a loading dose of Plavix; metoprolol titrates and 3 sublingual nitroglycerin. He was also started on nitroglycerin drip. The patient reported that he does not take any home medication except daily dose of baby aspirin. The last time he took his home aspirin was the day before his admission. 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 Past Medical History Allergies No Known Allergies Allergy (Verified 12/06/17 01:41) Home Medications: Ambulatory Orders Medication Instructions Recorded NK [NK] 12/06/17 Surgical History: no surgical history Lives: Spouse/ Significant Other Smoking Status: Never smoker Tobacco Use: Non-smoker Alcohol: None - *Family History Paternal History Items: Heart Disease Maternal History Items: No pertinent history Review of Systems Constitutional: Denies: Chills, Fever, Weight Change Eyes: Denies: Blurred vision, Pain HEENT: Denies: Head Aches, Sinus Congestion, Sinus Drainage Cardiovascular: Reports: Chest Pain Respiratory: Reports: Shortness of Breath Gastrointestinal: Denies: Abdominal Pain, Nausea, Vomiting Genitourinary: Denies: Dysuria Musculoskeletal: Denies: Joint Pain, Joint Tenderness Skin: Denies: Rash, Wounds Neurological: Denies: Numbness, Tingling, Focal weakness Psychiatric: Denies: Anxiety, Depression, Homicidal Ideations, Suicidal Ideations Hematologic/ Lymphatic: Denies: Easy Bruising, Easy Bleeding VTE Information - Inpt Only VTE Present on Admission: No VTE Mechan Device Prophylaxis: None VTE Pharm Prophylaxis ordered?: Yes Patient Problems: Active and Suspected Problems Non-ST elevation IN (NSTEMI) (Acute) - Physical Exam General: Alert HEENT: Atraumatic, PERRLA, EOMI, Normocephalic Neck: Supple Lungs: Clear to auscultation Cardiovascular: Regular rate, No murmurs Abdomen: Bowel Sounds Present, Soft, Non Tender Extremities: No edema, Capillary Refill Less than 3 Seconds Skin: No rashes, No breakdown Musculoskeletal: No Tenderness to Palpation of Joints or Extremities Neurological: Cranial nerves II-XII grossly intact Psych/Mental Status: Normal Affect, Appropriate Vital Signs Temp Pulse Resp BP Pulse Ox 98.0 F 63 17 119/81 H 96 12/06/17 01:42 12/06/17 03:25 12/06/17 03:23 12/06/17 03:25 12/06/17 03:23 Oxygen Delivery Method Room Air Weight: 84.9 kg Body Mass Index (BMI) 30.2 Laboratory Tests Past 24 Hrs WBC 6.3 RBC 4.50 L Hgb 14.2 Hct 41.8 MCV 92.9 MCH 31.6 MCHC 34.0 RDW 12.3 Assessment/Plan All Active Problems Non-ST elevation IN (NSTEMI) (Acute) The patient is a 77 year old M with a significant history of CAD status post stents who presents with progressively worsening nonradiating substernal typical chest pain; a strong family history of heart disease; and a positive troponin concerning for non-ST elevation IN Non-ST elevation IN Admit to a monitored bed on PCU CXR independently reviewed confirms no acute pulmonary disease EKG independently reviewed confirms normal sinus rhythm without T-wave abnormalities ASA 81 mg p.o. daily Patient was started on nitroglycerin drip for emergency department; nitroglycerin drip continued Troponin on admission was positive. Continue serial cardiac enzymes Stat EKG as needed for chest pain Patient received beta blockers on admission. Please consider further beta-michael therapy as necessary. Fasting lipids ordered. High intensity statin started. Received Plavix loading at emergency department Cardiology has been consulted. DVT prophylaxis Subcutaneous heparin 12/06/17 2791 <Electronically signed by Rufus Main MD> Date Rufus Main MD Cosigner Signature: Date (if applicable) CC: Rufus Main MD; Juan R Rowland MD Signed EMERGENCY DEPARTMENT Observed: 12/06/2017 Status: F Source: [place] SUMMARY 3:52 AM [facility] REPOSITORY [facility] Medical Records Department [address] [place] [address] Emergency Department Summary 12/06/17 0349 MR#: [id number] Acct: [id number] Name: JAMA BROWN Rep #: [id number] : 1940 77 From: Nino Devine MD PCP: Juan R Rowland MD Status: REG ER - ER Visit Summary Date of Service: 12/06/17 Chief Complaint: Chest pain History of Present Illness: The patient is a 77 M who presents with chest pain. He does have a history of coronary disease and prior IN. He had a previous stent which he believes was 2002. Over the past 2 days he has had intermittent chest pain. This initially began while running and was relieved by stopping. His pain became worse tonight. He has had some associated shortness of breath and diaphoresis. No nausea or vomiting. No fevers. Patient did have sublingual nitroglycerin prior to presentation here to the emergency department which he states did help. Physical Examination: Afebrile vitals stable Moist mucous membranes Heart regular rate and rhythm Lungs are clear Abdomen soft 2+ radial pulses Extremities nontender Alert Test Results: EKG shows sinus rhythm at a rate of 62. Chest x-ray shows no active disease. CBC BMP unremarkable. Troponin is 0.184. Emergency Department Course and Treatment: Patient was given aspirin. He was given further sublingual nitroglycerin here about change in symptoms. Given evidence of cardiac ischemia and ongoing chest pain nitroglycerin infusion was ordered. I spoke to Dr. Moodispaw. He recommended a loading dose of Plavix as well as beta-michael and to defer on anticoagulation at this time as they will likely perform cardiac catheterization on the patient this morning. I spoke to the hospitalist and the patient will be admitted. Treatment Plan: [] Disposition: Admit Impression: Acute coronary syndrome This note was generated with [employer] dictation software. It may contain incorrect words, spelling, and punctuation that were not noted in review of the chart prior to signing ED Disposition - Plan for ED Patient: Chief Complaint: Chest Pain Referrals: Juan R Rowland, DO [Primary Care Provider] - What to do if you have Problems For any increased pain, shortness of breath, bleeding, nausea or vomiting, chest pain, or any unexpected problems, contact your Primary Care Provider. Call [facility] ([phone]) or report to the closest Emergency Room. Call 911 if necessary. 12/06/17 0352 <Electronically signed by Nino Devine MD> Date Nino Devine MD Cosigner Signature (If Indicated): Date CC: Juan R Rowland MD CHEST 1 VIEW Observed: 12/06/2017 Status: F Source: [place] (PORTABLE) 2:09 AM [facility] REPOSITORY [facility] Imaging Services [address] [place] [id number] Chest 1 View (Portable) MR#: [id number] Acct: [id number] Name: JAMA BROWN Rep #: [id number] : 1940 M 77 From: Antoine Gandhi MD PCP: Juan R Rowland MD Status: REG ER Study: Chest 1 View (Portable) Date of Exam: 12/06/17 Exam# [id number] Ordering Dr: Nino Devine MD STUDY: X-RAY CHEST REASON FOR EXAM: Male, 77 years old. Chest pain. TECHNIQUE: Single AP portable view of the chest. COMPARISON: Prior comparison studies are not available for review at this time. FINDINGS: There is hyperinflation of the lungs consistent with chronic obstructive lung disease (COPD). No focal infiltrate is seen. There is no demonstrated pleural abnormality. Normal size heart. Normal mediastinum and sherman. Normal visualized pulmonary arteries. There is atherosclerotic tortuosity of the aortic arch and descending thoracic aorta. The thoracic spine is obscured. Normal visualized ribs, clavicles, and shoulders. There is no demonstrated abnormality of the visualized soft tissue structures of the upper abdomen. RAD/Chest 1 View (Portable) IMPRESSION: No active pulmonary disease. Electronically Signed: Antoine Gandhi MD at 2:25 EDT Tel , Service support , CC: Nino Devine MD; Juan R Rowland MD Psychologists: Signed CBC W/DIFF, AUTOMATED Collected: 12/06/2017 Status: F Source: [place] 1:50 AM [facility] REPOSIT[facility] TYPE CODE TESTS RESULT OUT OF RANGE REFERENCE UNITS LAB L100.1000 4.4-11.0 K/mm3 Normal WBC 6.3 LAB L100.1200 4.6-6.2 M/mm3 Low RBC 4.50 LAB L100.1300 13.0-16.5 g/dl Normal HGB 14.2 LAB L100.1400 40-54 % Normal HCT 41.8 LAB L100.1500 80-94 fL Normal MCV 92.9 LAB L100.1600 27.0-32.0 pg Normal MCH 31.6 LAB L100.1700 32-36 g/gl Normal MCHC 34.0 LAB L100.1810 11.6-14.6 % Normal RDW CV 12.3 LAB L100.1820 35.1-43.9 fl Normal RDW SD 41.4 LAB L100.1900 150-450 K/mm3 Normal PLT 172 LAB L100.2000 6.2-12.0 fl Normal MPV 9.4 LAB L100.2100 47-70 % Normal NEUT% 57.1 LAB L100.2200 19-41 % Normal LY% 23.7 LAB L100.2300 0-10 % High MONO% 10.2 LAB L100.2400 0-5 % High EO% 8.2 LAB L100.2500 0-1 % Normal BASO% 0.6 LAB L100.2550 0.0-0.9 % Normal IM GRAN % 0.200 Result Comment: IG% - Immature Granulocytes (promyelocytes, myelocytes and metamyelocytes) > 1% indicates that a LEFT SHIFT is Present. LAB L100.2620 2.0-7.7 X10 3/uL Normal Absolute Neut 3.6 LAB L100.2720 0.83-4.51 X10 3/ul Normal Absolute Lymph 1.48 Performed By: #### L100.0100 #### [facility] [address] [place], [address] BASIC METABOLIC Collected: 12/06/2017 Status: F Source: [place] PROFILE (BMP) 1:50 AM [facility] TYPE CODE TESTS RESULT OUT OF RANGE REFERENCE UNITS LAB L501.0100 74-106 mg/dL Normal GLU 89 Result Comment: Please note revised GLUCOSE reference range effective 2017. LAB L501.1000 7-18 mg/dL Normal BUN 17 LAB L501.1100 0.70-1.30 mg/dL Normal CREAT,SERUM 1.00 Result Comment: The validity of the calculated GFR AND GFRAA in patients over 70 years has not been determined. Clinical correlation is essential. LAB L501.1110 >60 mL/min Normal EST GFR 77 Result Comment: Non- GFR Calc LAB L501.1115 >60 mL/min Normal EST GFR - AA 94 Result Comment: GFR Calc LAB L501.1255 ml/min Normal Estimated CRCL 55.83 LAB L501.1300 10-20 RATIO Normal BUN/CRE 17.1 LAB L501.2200 8.5-10 mg/dL Low .1 CA 8.4 LAB L501.5300 136-14 mmol/L Normal 5 NA 142 LAB L501.5600 3.5-5. mmol/L Normal 1 K 3.6 LAB L501.5900 98-107 mmol/L Normal CL 106 LAB L501.6100 21.0-3 mmol/L Normal 2.0 CO2 31.0 LAB L501.6200 5-15 Normal GAP 5 Performed By: #### L500.2500, L501.4010 #### [facility] [address] [place], [address] TROPONIN-I Collected: 12/06/2017 Status: F Source: [place] 1:50 AM [facility]POS[facility] TYPE CODE TESTS RESULT OUT OF RANGE REFERENCE UNITS LAB L501.4010 <0.045 ng/mL High 0.184 TROPONIN-I Result Comment: TROPONIN-I EXPECTED VALUES <0.045 Negative 0.045 - 0.590 Consistent with Cardiac Damage > OR = 0.600 Critical Value Not every elevated troponin is indicative of IN. These values should be used with clinical judgement in examining the patient's clinical picture for diagnosis. To establish a diagnosis of IN versus myocardial injury, there must be a demonstrated rise and/or fall in the troponin values, in addition to ischemic symptoms, EKG changes, new regional wall motion abnormality, and/or angiographical evidence. PLEASE NOTE: REFERENCE RANGES EDITED 17 Performed By: #### L500.2500, L501.4010 #### [facility] [address] [place], [address] ALLERGIES ALLERGIES DATE TYPE / CODE NAME / CODE REACTION SEVERITY SOURCE 12/22/2017 Drug No Known Unknown [facility] Allergy/4160 Allergies/F00 [facility] 06145(SNOMED [id number](RXNOR Repository CT) M) ENCOUNTERS ENCOUNTERS ADMIT/DISCHARGE ACCOUNT ADMITTING ENCOUNTER LOCATION SOURCE NUMBER CLASS 04/06/2018 [id number] [place] [facility] ing:LAB Repository 03/30/2018 [id number] Ambulatory [place] 3 [facility] ing:LAB Repository 03/16/2018/ [id number] Ambulatory [place] 8 5 [facility] ing:LAB Repository 03/06/2018 [id number] [place] 4 [facility] ing:CVS Repository 03/06/2018 [id number] Ambulatory BMSBuilding:W [place] 1 [facility] Repository 01/05/2018/ [id number] [place] 8 3 [facility] ing:LAB Repository 12/22/2017 [id number] Ambulatory [place] 5 [facility] ing:LAB Repository 12/22/2017/ [id number] Ambulatory BMSBuilding:B [place] 8 8 [facility] Repository 12/11/2017/ [id number] Ambulatory [place] 8 4 [facility] ing:LAB Repository 12/09/2017 [id number] Ambulatory BMSBuilding:W [place] 1 [facility] Repository 12/06/2017/ [id number] Agy[place], Inpatient [place] 8 9 [place] Encounter [facility] ing:PCURoom: Repository [id number]: 1 12/06/2017 [id number] [place], Ambulatory BMSBuilding:B [place] 0 [place].[facility] Repository 12/06/2017 [id number] [place], Ambulatory BMSBuilding:B [place] 9 [place] [facility] Repository 12/06/2017 [id number] [place], Ambulatory BMSBuilding:B [place] 2 [place].[facility] Repository 12/06/2017 [id number] [place], Ambulatory BMSBuilding:B [place] 0 [place].[facility] Repository 12/06/2017 [id number] [place], Ambulatory BMSBuilding:B [place] 7 [place].[facility] Repository 12/06/2017 [id number] [place], Ambulatory BMSBuilding:B [place] 9 [place].[facility] Repository 12/06/2017 [id number] [place], Ambulatory BMSBuilding:B [place] 9 [place].[facility] Repository PAYERS PAYERS ENCOUNTER GUARANTOR PAYER SUBSCRIBER SOURCE 04/06/2018 JAMA Tim [id number] ABIODUN [facility] Number: [id number] Hospital , [place] [address]Dez: [id number] Repository Date:2018-04-06 () 04/06/2018 Secondary NOT GIVENUNK [place] Insurance:SELF PAY [facility] Number: Effective Repository Date:2018-04-06 03/30/2018 JAMA R Primary JAMA Mann [place] [id number] ABIODUN Insurance:SIKH YODERDOB: [facility] Number: [id number], [place] [address]Yzr: [id number] Repository Date:2017-12-11 () 03/30/2018 Secondary NOT GIVENUNK [place] Insurance:SELF PAY [facility] Number: Effective Repository Date:2018-03-19 03/16/2018 JAMA R Primary JAMA Mann [place] [id number] ABIODUN Insurance:SIKH YODERDOB: [facility] Number: [id number] [place], [place] [address]Ann: [id number] Repository Date:2017-12-11 () 03/16/2018 Secondary NOT GIVENUNK [place] Insurance:SELF PAY [facility] Number: Effective Repository Date:2018-01-18 03/06/2018 JAMA R Primary Insurance:[facility] JAMA Mackenzie [place] [id number] ABIODUN PACKAGE PLANPolicy YODERDOB: [facility] Number: [facility] [id number] [place], [place] [address]Phy: N/AEffective Repository Date:2017-12-25 () 03/06/2018 Secondary NOT GIVENUNK [place] Insurance:SELF PAY [facility] Number: Effective Repository Date:2017-12-25 03/06/2018 JAMA R Primary Insurance:[facility] JAMA Mackenzie [place] [id number] ABIODUN PACKAGE PLANPolicy YODERDOB: [facility] Number: [facility] [id number] [place], [place] [address]Fuu: N/AEffective Repository Date:2017-12-25 () 03/06/2018 Secondary NOT GIVENUNK [place] Insurance:SELF PAY [facility] Number: Effective Repository Date:2018-03-06 01/05/2018 JAMA Mann Primary JAMA Mann [place] [id number] RAS[place] Insurance:SIKH YODERDOB: [facility] Number: [id number] Hospital , [place] [address]Iyg: [id number] Repository Date:2017-12-11 () 01/05/2018 Secondary NOT GIVENUNK [place] Insurance:SELF PAY [facility] Number: Effective Repository Date:2017-12-20 12/22/2017 JAMA R Primary JAMA Mann [place] [id number] [place] Insurance:SIKH YODERDOB: [facility] Number: [id number] Hospital , [place] [address]Oik: [id number] Repository Date:2017-12-22 () 12/22/2017 Secondary NOT GIVENUNK [place] Insurance:SELF PAY [facility] Number: Effective Repository Date:2017-12-22 12/22/2017 JAMA Mann Primary NOT GIVENUNK [place] [id number] [place] Insurance:SELF PAY [facility] [place] [address]Hhh: Number: Effective Repository Date:2017-12-22 () 12/11/2017 JAMA Mann Primary JAMA Mann [place] [id number] RAS[place] Insurance:SIKH YODERDOB: [facility] Number: [id number] Hospital , [place] [address]Gwy: [id number] Repository Date:2017-12-11 () 12/11/2017 Secondary NOT GIVENUNK [place] Insurance:SELF PAY [facility] Number: Effective Repository Date:2017-12-11 12/09/2017 JAMA Mann Primary NOT GIVENUNK [place] [id number] [place] Insurance:SELF PAY [facility] , [place] [address]Qhi: Number: Effective Repository Date:2017-12-09 () 12/06/2017 JAMA R Primary JAMA R [place] [id number] [place] Insurance:SIKH YODERDOB: [facility] Number: [id number] [place], [place] [address]Iyf: [id number] Repository Date:2017-12-06 () 12/06/2017 Secondary NOT GIVENUNK [place] Insurance:SELF PAY [facility] Number: Effective Repository Date:2017-12-06 12/06/2017 JAMA R Primary NOT GIVENUNK [place] [id number] RAS[place] Insurance:SELF [place] [address]Eyb: Number: Effective Repository Date:2017-12-06 () 12/06/2017 JAMA R Primary NOT GIVENUNK [place] [id number] RAS[place] Insurance:[place] [address]Jde: Number: Effective Repository Date:2017-12-06 () 12/06/2017 JAMA R Primary NOT GIVENUNK [place] [id number] [place] Insurance:SELF [place]Y [place] [address]Zde: Number: Effective Repository Date:2017-12-06 () 12/06/2017 JAMA R Primary NOT GIVENUNK [place] [id number] RAS[place] Insurance:SELF [place]Y [place], [place] [address]Nxz: Number: Effective Repository Date:2017-12-06 () 12/06/2017 JAMA R Primary NOT GIVENUNK [place] [id number] [place] Insurance:SELF [place] [address]Kke: Number: Effective Repository Date:2017-12-06 () 12/06/2017 JAMA R Primary NOT GIVENUNK [place] [id number] [place] Insurance:[place] [address]Bls: Number: Effective Repository Date:2017-12-06 () 12/06/2017 JAMA R Primary NOT GIVENUNK [place] [id number] [place] Insurance:SELF PAY [facility] [place] [address]Ijk: Number: Effective Repository Date:2017-12-06 ()
== END ==
PROVIDERS: Family Provider Family Medicine; PCP Family Medicine; Referring Provider Nurse Practitioner Family; Visit Provider Nurse Practitioner Family
DX: I51.3 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thrombosis, not elsewhere classified (principal); I25.10 Atherosclerotic heart disease of native coronary artery without angina pectoris
CPT/HCPCS: 93308; Q9957; A4216; C8924

== ENCOUNTER 2018-03-16 08:54 | Outpatient (RCR) | payer OTHER, SELFPAY ==
[2017-12-22 09:39] VITALS: BMI 29.0
[2018-03-16 09:52] LABS: International Normalized Ratio 1.7; Prothrombin Time (Protime)PT. 19.9 SECONDS (11.7-14.9)
== END 2018-03-16 09:00 | disposition home or self-care (01) ==
LOC: LAB 08:54
PROVIDERS: Family Provider Family Medicine; PCP Family Medicine; Referring Provider Internal Medicine Cardiovascular Disease; Visit Provider Internal Medicine Cardiovascular Disease
DX: I51.3 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thrombosis, not elsewhere classified (principal); Z79.01 Long term (current) use of anticoagulants
CPT/HCPCS: 36415; 85610

== ENCOUNTER 2018-03-30 09:38 | Outpatient (RCR) | payer OTHER, SELFPAY ==
[2017-12-22 09:39] VITALS: BMI 29.0
[2018-03-30 11:40] LABS: International Normalized Ratio 1.4; Prothrombin Time (Protime)PT. 16.8 SECONDS (11.7-14.9)
== END 2018-03-30 11:00 | disposition home or self-care (01) ==
LOC: LAB 09:38
PROVIDERS: Family Provider Family Medicine; PCP Family Medicine; Referring Provider Internal Medicine Cardiovascular Disease; Visit Provider Internal Medicine Cardiovascular Disease
DX: I51.3 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thrombosis, not elsewhere classified (principal); Z79.01 Long term (current) use of anticoagulants
CPT/HCPCS: 36415; 85610

== ENCOUNTER → 2018-04-06 16:24 | Outpatient (CLI) | payer OTHER, SELFPAY ==
[2017-12-22 09:39] VITALS: BMI 29.0
[2018-04-06 17:29] LABS: Prothrombin Time (Protime)PT. 22.8 SECONDS (11.7-14.9)
--- OUTSIDE RECORDS SUMMARY | 2018-06-11 07:45 | XMS RPT_ITS ---
:1940 Author Organization OHIP Support Name Relationship Address Phone [address] BUILDERS Unavailable [address] + [place] [address] BROWN, ANA LILIA Unavailable [address] + [place] [address] BROWN, CHIN Unavailable [address] + [place] [address] [address] BU[address]ERS Unavailable [address] + [place] [address] BROWN, ANA LILIA Unavailable [address] + [place] [address] BROWN, CHIN Unavailable [address] + [place] [address] [address] BUILDERS Unavailable [address] + [place] [address] BROWN, ANA LILIA Unavailable [address] + [place] [address] BROWN, CHIN Unavailable [address] + [place] [address] [address] BUILDERS Unavailable [address] + [place] [address] BROWN, ANA LILIA Unavailable [address] + [place] [address] BROWN, CHIN Unavailable [address] + [place] [address] [address] BUILDERS Unavailable [address] + [place] [address] BROWN, ANA LILIA Unavailable [address] + [place] [address] BROWN, CHIN Unavailable [address] + [place] [address] [address] BUILDERS Unavailable [address] + [place] [address] BROWN, ANA LILIA Unavailable [address] + [place] [address] BROWN, CHIN Unavailable Unavailable + [place] [address] [address] BUILDERS Unavailable [address] + [place] [address] BROWN, ANA LILIA Unavailable [address] + [place] [address] BROWN, CHIN Unavailable 1 + [place] [address] [address] BUILDERS Unavailable [address] + [place] [address] BROWN, ANA LILIA Unavailable [address] + [place] [address] BROWN, CHIN Unavailable 1 + [place] [address] [address] BUILDERS Unavailable [address] + [place] [address] BROWN, ANA LILIA Unavailable [address] + [place] [address] [address] BUILDERS Unavailable [address] + [place] [address] BROWN, ANA LILIA Unavailable [address] + [place] [address] BROWN, CHIN Unavailable Unavailable + [place] [address] 44 BUILDERS Unavailable [address] + [place] [address] BROWN, ANA LILIA Unavailable [address] + [place] [address] 44 BUILDERS Unavailable [address] + [place] [address] BROWN, ANA LILIA Unavailable [address] + [place] [address] BROWN, CHIN Unavailable 1 + [place] [address] [address] BUILDERS Unavailable [address] + [place] [address] BROWN, ANA LILIA Unavailable [address] + [place] [address] [address] BUILDERS Unavailable [address] + [place] [address] BROWN, ANA LILIA Unavailable [address] + [place] [address] BROWN, CHIN Unavailable 1 + [place] [address] 44 BUILDERS Unavailable [address] + [place] [address] BROWN, ANA LILIA Unavailable [address] + [place] [address] 44 BUILDERS Unavailable [address] + [place] [address] BROWN, ANA LILIA Unavailable [address] + [place] [address] BROWN, CHIN Unavailable 1 + [place] [address] 44 BUILDERS Unavailable [address] + [place] [address] BROWN, ANA LILIA Unavailable [address] + [place] [address] [address] BUILDERS Unavailable [address] + [place] [address] BROWN, ANA LILIA Unavailable [address] + [place] [address] Care Team Providers Name Role Phone Adan Pinon Attending Unavailable Adan Pinon Referring Unavailable Juan R Rowland Primary Care Unavailable Familia Erwin Consulting Unavailable Familia Erwin Attending Unavailable Familia Erwin Referring Unavailable Juan R Rowland Primary Care Unavailable Familia Erwin Attending Unavailable Adan Pinon Referring Unavailable Familia Erwin Attending Unavailable Familia Erwin Referring Unavailable Juan R Rowland Primary Care Unavailable Juan R Rowland Primary Care Unavailable Rufus Main Admitting Unavailable [place], Familia Consulting Unavailable Tereletsky, Tray Attending Unavailable Agyepong, Rufus Admitting Unavailable [place], Familia Attending Unavailable [facility] Unavailable [place], Familia Consulting Unavailable Tereletsky, Tray Consulting Unavailable Agyepong, Rufus Admitting Unavailable [facility] [place], Familia Consulting Unavailable Agyepong, Rufus Attending Unavailable Tereletsky, Tray Consulting Unavailable Agyepong, Rufus Admitting Unavailable [place], Familia Attending Unavailable [facility] Unavailable [place], Familia Consulting Unavailable Tereletsky, Tray Consulting Unavailable Agyepong, Rufus Admitting Unavailable Tereletsky, Tray Attending Unavailable [facility] Unavailable [place], Familia Consulting Unavailable Tereletsky, Tray Consulting Unavailable Agyepong, Rufus Admitting Unavailable [place], Familia Attending Unavailable [facility] Unavailable [place], Familia Consulting Unavailable Tereletsky, Tray Consulting Unavailable Agyepong, Rufus Admitting Unavailable Tereletsky, Tray Attending Unavailable [facility] Unavailable [place], Familia Consulting Unavailable Tereletsky, Tray Consulting Unavailable Agyepong, Rufus Admitting Unavailable Tereletsky, Tray Attending Unavailable [facility] Unavailable [place], Familia Consulting Unavailable Tereletsky, Tray Consulting Unavailable [place], Familia Attending Unavailable [place], Familia Referring Unavailable [facility] Unavailable [place], Familia Attending Unavailable [place], Familia Referring Unavailable [facility] Unavailable Roof, Adan H Attending Unavailable Janett, Juan R Referring Unavailable Roof, Adan H Attending Unavailable Roof, Adan H Referring Unavailable [facility] Unavailable Judson, Pitts Attending Unavailable Tereletsky, Tray Referring Unavailable [place], Familia Attending Unavailable [place], Familia Referring Unavailable [facility] Unavailable PROBLEMS PROBLEMS DATE TYPE CONDITION / CODE ATTENDING STATUS SOURCE 03/19/2018 Unknown I51.3 - 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[place], Active [facility] thrombosis, not Familia Community elsewhere classified / Hospital I51.3(ICD-10) Repository 03/19/2018 Unknown Z79.01 - longterm [place], Active [facility] (current) use of [facility] anticoagulants / Hospital Z79.01(ICD-10) Repository 03/06/2018 Unknown I25.10 - RoofAdan Active [facility] Atherosclerotic heart Community disease of [place] [facility] coronary artery Repository without angina pectoris / I25.10(ICD-10) 01/11/2018 Unknown I47.2 - Ventricular JudsonShlomo major Active [facility] tachycardia / Community I47.2(ICD-10) Hospital Repository 01/11/2018 Unknown R94.31 - Abnormal Judson, Pitts Active [facility] electrocardiogram Community [ECG] [EKG] / Hospital R94.31(ICD-10) Repository 01/11/2018 Unknown I25.110 - Judson, Shlomo Active [facility] Atherosclerotic heart Community disease of [facility] coronary artery with Repository unstable angina pectoris / I25.110(ICD-10) PROCEDURES PROCEDURES No Procedure Records FoundRESULTS RESULTS PROTHROMBIN TIME W/INR Collected: 04/06/2018 Status: F Source: [place] 4:28 PM [facility] REPOSITORY TYPE CODE TESTS RESULT OUT OF RANGE REFERENCE UNITS LAB L300.4150 11.7-14.9 SECONDS High PROTIME 22.8 LAB L300.4200 Normal INR 2.0 Performed By: #### L300.3900 #### [facility] [address] [place], [address] PROTHROMBIN TIME W/INR Collected: 03/30/2018 Status: F Source: [place] 9:41 AM [facility] REPOSITORY Order Comment: Comments: STANDING ORDER Comments: STANDING ORDER TYPE CODE TESTS RESULT OUT OF RANGE REFERENCE UNITS LAB L300.4150 11.7-14.9 SECONDS High PROTIME 16.8 LAB L300.4200 Normal INR 1.4 Performed By: #### L300.3900 #### [facility] [address] [facility]. [place], [place], [address] PROTHROMBIN TIME W/INR Collected: 03/16/2018 Status: F Source: [place] 8:58 AM [facility] REPOSITORY Order Comment: Comments: STANDING ORDER Comments: STANDING ORDER TYPE CODE TESTS RESULT OUT OF RANGE REFERENCE UNITS LAB L300.4150 11.7-14.9 SECONDS High PROTIME 19.9 LAB L300.4200 Normal INR 1.7 Performed By: #### L300.3900 #### [facility] [address] [place], [address] PROTHROMBIN TIME W/INR Collected: 01/05/2018 Status: F Source: [place] 10:29 AM [facility] REPOSITORY TYPE CODE TESTS RESULT OUT OF RANGE REFERENCE UNITS LAB L300.4150 11.7-14.9 SECONDS High PROTIME 27.6 LAB L300.4200 Normal INR 2.6 Performed By: #### L300.3900 #### [facility] [address] [place], [address] CARDIOLOGY VISIT Observed: 12/22/2017 Status: F Source: [place] REPORT 4:49 PM [facility] REPOSITORY [facility] [address] [place] [address] OFFICE VISIT Date of Service: 12/22/17 MR#: [id number] Acct: [id number] Name: JAMA BROWN Rep #: [id number] : 1940 Provider: ALLYSON Pinon Age/Sex: 77/M Location: [facility] Status: Signed HPI HPI [...] noted in November 2017. 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 Assessment AND Plan 1. Atherosclerosis of [place] coronary artery of [place] heart without angina pectoris I25.10 Successful PTCA/LARY [...] will continue to monitor. Orders Orders: 4. watermelon inspector (current) use of anticoagulants Z79.01 Plan He [...] Code Off vis,est,level 3 Diagnoses Atherosclerosis of [place] coronary artery of [place] heart without angina pectoris I25.10 LV (left ventricular) mural thrombus I51.3 Ventricular tachycardia (paroxysmal) I47.2 watermelon inspector (current) use of anticoagulants Z79.01 Coding Level of Care Code Off vis,est,level 3 Diagnoses Atherosclerosis of [place] coronary artery of [place] heart without angina pectoris I25.10 LV (left ventricular) mural thrombus I51.3 Ventricular tachycardia (paroxysmal) I47.2 longterm (current) use of anticoagulants Z79.01 12/22/17 1649 <Electronically signed by Adan TINOCO> Date Adan TINOCO Cosigner Signature: Date (if applicable) CC: Juan R Rowland MD PROTHROMBIN TIME W/INR Collected: 12/22/2017 Status: F Source: [place] 10:37 AM [facility] REPOSITORY Order Comment: Comments: Standing Order Comments: Standing Order TYPE CODE TESTS RESULT OUT OF RANGE REFERENCE UNITS LAB L300.4150 11.7-14.9 SECONDS High PROTIME 28.3 LAB L300.4200 Normal INR 2.6 Performed By: #### L300.3900 #### [facility] [address] [place], [address] 12 LEAD ELECTROCARDIOGRAM Observed: 12/15/2017 Status: F Source: [place] 2:40 PM [facility] REPOSITORY [facility] Cardiovascular Services [address] [place] [address] 12 Lead EKG 12/08/17 0506 MR#: [id number] Acct: [id number] Name: JAMA BROWN Rep #: [id number] : 1940 77 From: Familia Erwin MD Attending Dr: Tray Fernandez DO Status: DIS IN Ordering Dr: John Peck MD Date: 12/08/17 Location: [facility] Sex: M C Admitted: 12/06/17 Test Reason [...] IS UNCONFIRMED Confirmed by FAMILIA ERWIN MD ([id number]), editorial project manager LIN AVILES ([id number]) on 12/15/2017 2:40:03 PM Referred By: NORBERTO Confirmed By:FAMILIA ERWIN MD 12/15/17 1440 Date Familia Erwin MD CC: John Peck MD; Tray Fernandez DO; Juan R Rowland MD Signed 12 LEAD ELECTROCARDIOGRAM Observed: 12/15/2017 Status: F Source: [place] 2:39 PM [facility] REPOSITORY [facility] Cardiovascular Services [address] [place] [address] 12 Lead EKG 12/09/17 0528 MR#: [id number] Acct: [id number] Name: JAMA BROWN Rep #: [id number] : 1940 77 From: Familia Erwin MD Attending Dr: Tray Fernandez DO Status: DIS IN Ordering Dr: John Peck MD Date: 12/09/17 Location: [facility] Sex: M C Admitted: 12/06/17 Test Reason [...] UNCONFIRMED Confirmed by FAMILIA ERWIN MD ([id number]), editorial project manager LIN AVILES ([id number]) on 12/15/2017 2:39:03 PM Referred By: NORBERTO Confirmed By:FAMILIA ERWIN MD 12/15/17 1439 Date Familia Erwin MD CC: John Peck MD; Tray Fernandez DO; Juan R Rowland MD Signed 12 LEAD ELECTROCARDIOGRAM Observed: 12/13/2017 Status: F Source: [place] 9:39 AM [facility] REPOSITORY [facility] Cardiovascular Services [address] [place] [address] 12 Lead EKG 12/06/17 1101 MR#: [id number] Acct: [id number] Name: JAMA BROWN Rep #: [id number] : 1940 77 From: Shlomo Roper MD Attending Dr: Tray Fernandez DO Status: DIS IN Ordering Dr: John Peck MD Date: 12/06/17 Location: [facility] Sex: M C Admitted: 12/06/17 Test Reason [...] UNCONFIRMED Confirmed by SHLOMO ROPER MD ([id number]), editorial project manager LIN AVILES ([id number]) on 12/13/2017 9:38:58 AM Referred By: KATHLEEN Confirmed By:SHLOMO ROPER MD 12/13/17 0939 Date Shlomo Roper MD CC: John Peck MD; Tray Fernandez DO; Juan R Rowland MD Signed 12 LEAD ELECTROCARDIOGRAM Observed: 12/13/2017 Status: F Source: [place] 9:36 AM [facility] REPOSITORY [facility] Cardiovascular Services [address] [place] [address] 12 Lead EKG 12/07/17 0509 MR#: [id number] Acct: [id number] Name: JAMA BROWN Rep #: [id number] : 1940 77 From: Shlomo Roper MD Attending Dr: Tray Fernandez DO Status: DIS IN Ordering Dr: John Peck MD Date: 12/07/17 Location: [facility] Sex: M C Admitted: 12/06/17 Test Reason [...] UNCONFIRMED Confirmed by JUDSON BENTLEY, SHLOMO ([id number]), editorial project manager LIN AVILES ([id number]) on 12/13/2017 9:36:19 AM Referred By: NORBERTO Confirmed By:SHLOMO ROPER MD 12/13/17 0936 Date Shlomo Roper MD CC: John Peck MD; Tray Fernandez DO; Juan R Rowland MD Signed PROTHROMBIN TIME W/INR Collected: 12/11/2017 Status: F Source: [place] 10:43 AM [facility] REPOSITORY Order Comment: Comments: STANDING ORDER Comments: STANDING ORDER TYPE CODE TESTS RESULT OUT OF RANGE REFERENCE UNITS LAB L300.4150 11.7-14.9 SECONDS High PROTIME 21.8 LAB L300.4200 Normal INR 1.9 Performed By: #### L300.3900 #### [facility] [address] [place], [address] DISCHARGE SUMMARY Observed: 12/10/2017 Status: F Source: [place] 3:45 PM [facility] REPOSITORY [facility] Medical Records Department [address] [place] [address] Discharge Summary 12/10/17 1430 MR#: [id number] Acct: [id number] Name: JAMA BROWN Rep #: [id number] : 1940 77 From: Tray Fernandez DO PCP: Juan R Rowland MD Status: DIS IN Y Location: [place] [address] Discharge Date and Diagnosis Date of Admission: [...] was seen in [facility] with a chief complaint of chest pain. [...] [facility] Discharge Activity: Return to Normal [...] Familia Erwin MD When: in two weeks- [phone], get lab done on 12/11/17 and 12/12/17 [...] Michael at discharge?: Yes Done w/ Acute MS measure.: Yes Code Visit Inpatient E AND M: 97206 Disch Hosp 12/10/17 1545 <Electronically signed by Tray Fernandez DO> Date Tray Fernandez DO Cosigner Signature (if applicable): Date CC: Tray Fernandez DO; Juan R Rowland MD Signed DISCHARGE INSTRUCTION Observed: 12/09/2017 Status: F Source: [place] 10:27 AM [facility] REPOSITORY [facility] Medical Records Department [address] [place] [address] Instructions for Home/Discharge Instructions 12/09/17 1019 MR#: [id number] Acct: [id number] Name: JAMA BROWN Rep #: [id number] : 1940 77 From: Tray Fernandez DO PCP: Juan R Rowland MD Status: ADM IN - Discharge Diagnoses Current Active Problems: Current Active and Chronic Problems Non-ST elevation MS (NSTEMI) (Acute) Ventricular tachycardia (paroxysmal) (Acute) CAD [...] Familia Erwin MD When: in two weeks- [phone], get lab done on 12/11/17 and 12/12/17 (INR) 12/09/17 1027 <Electronically signed by Tray Tereletsky DO> Date Tray Fernandez DO CC: Juan R Rowland MD; Familia Erwin MD PROTHROMBIN TIME W/INR Collected: 12/09/2017 Status: F Source: [place] 5:38 AM [facility] REPOSITORY TYPE CODE TESTS RESULT OUT OF RANGE REFERENCE UNITS LAB L300.4150 11.7-14.9 SECONDS High PROTIME 17.7 LAB L300.4200 Normal INR 1.5 Performed By: #### L300.3900, L300.4310 #### [facility] [address] [place], [place], [address] PARTIAL THROMBOPLAST Collected: 12/09/2017 Status: F Source: [place] TIME 5:38 AM [facility] REPOSITORY TYPE CODE TESTS RESULT OUT OF REFERENCE UNITS RANGE LAB L300.4310 24.1-36.2 Seconds High PTT 75.2 Performed By: #### L300.3900, L300.4310 #### [facility] [address] [place], [place], [address] BASIC METABOLIC Collected: 12/09/2017 Status: F Source: [place] PROFILE (BMP) 5:38 AM [facility] REPOSITORY TYPE CODE TESTS RESULT OUT OF [...] GAP 8 Performed By: #### L500.2500 #### [facility] [address] [place], [address] PARTIAL THROMBOPLAST Collected: 12/09/2017 Status: F Source: [place] TIME 12:05 AM [facility] REPOSITORY Order Comment: Comments: heparin gtt TYPE CODE TESTS RESULT OUT OF REFERENCE UNITS RANGE LAB L300.4310 24.1-36.2 Seconds High PTT 61.0 Performed By: #### L300.4310 #### [facility], [address] PARTIAL THROMBOPLAST Collected: 12/08/2017 Status: F Source: [place] TIME 6:15 PM [facility] REPOSITORY Order Comment: Comments: heparin gtt TYPE CODE TESTS RESULT OUT OF REFERENCE UNITS RANGE LAB L300.4310 24.1-36.2 Seconds High PTT 66.8 Performed By: #### L300.4310 #### [facility] [address] [place], [address] PARTIAL THROMBOPLAST Collected: 12/08/2017 Status: F Source: [place] TIME 12:10 PM [facility] REPOSITORY TYPE CODE TESTS RESULT OUT OF REFERENCE UNITS RANGE LAB L300.4310 24.1-36.2 Seconds High PTT 69.9 Performed By: #### L300.4310 #### [facility] [address] [place], [address] CBC W/DIFF, AUTOMATED Collected: 12/08/2017 Status: F Source: [place] 5:25 AM [facility] REPOSITORY TYPE CODE TESTS RESULT OUT OF [...] Lymph 1.51 Performed By: #### L100.0100 #### [facility] [address] [place], [address] BASIC METABOLIC Collected: 12/08/2017 Status: F Source: [place] PROFILE (BMP) 5:25 AM [facility] REPOSITORY TYPE CODE TESTS RESULT OUT OF [...] GAP 8 Performed By: #### L500.2500 #### [facility] [address] [facility] [place], [address] PARTIAL THROMBOPLAST Collected: 12/08/2017 Status: F Source: [place] TIME 5:25 AM [facility] REPOSITORY TYPE CODE TESTS RESULT OUT OF REFERENCE UNITS RANGE LAB L300.4310 24.1-36.2 Seconds High alert PTT 156.4 Result Comment: CRITICAL VALUE VERIFIED. CALLED TO ABBEY 12/08/17 0635 Olga Montano. RESULTS READ BACK BY SAME . Performed By: #### L300.4310 #### [facility] [address] [place], [address] ECHO, COMPLETE W/ Observed: 12/07/2017 Status: F Source: [place] CONTRAST 9:27 PM [facility] REPOSITORY [facility] Cardiovascular Services [address] [place] [address] Echo Complete W/ Contrast 12/07/17 1403 MR#: [id number] Acct: [id number] Name: JAMA BROWN Rep #: [id number] : 1940 77 From: Familia Erwin MD Attending Dr: Tray Fernandez DO Status: ADM IN Ordering Dr: Familia Erwin MD Date: 12/07/17 Location: ICU Sex: M C Admitted: 12/06/17 Reason For Study: S/P MS Procedure This was a 2D Doppler, Color Flow transthoracic echocardiogram. The study was technically difficult. Contrast injection was performed. Exam performed portable in ICU/CCU. Left Ventricle Normal LV size. Mild concentric left ventricular hypertrophy. Segmental dysfunction with preserved ejection fraction (see wall motion). The estimated ejection fraction is 55 %. Diastolic function is indeterminate. Mid-Anterior : Hypokinetic. Mid-anteroseptal : Akinetic. [place] : Akinetic. Right Ventricle Normal RV size. [...] Date Dictated: 12/07/17 140 Date Transcribed: 12/07/172126 Senior Environmental Practice Leader: Signed 12 LEAD ELECTROCARDIOGRAM Observed: 12/07/2017 Status: F Source: [place] 2:25 PM [facility] REPOSITORY [facility] Cardiovascular Services [address] [place] [address] 12 Lead EKG 12/06/17 0448 MR#: [id number] Acct: [id number] Name: JAMA BROWN Rep #: [id number] : 1940 77 From: Shlomo Roper MD [...] UNCONFIRMED Confirmed by JUDSON BENTLEY, SHLOMO ([id number]), editorial project manager LIN AVILES (56) on 12/07/2017 2:25:35 PM Referred By: BRYNN Confirmed By:SHLOMO ROPER MD 12/07/17 1425 Date Shlomo Roper MD CC: Rufus Main MD; Tray Fernandez DO; Juan R Rowland MD Signed 12 LEAD ELECTROCARDIOGRAM Observed: 12/07/2017 Status: F Source: [place] 1:13 PM [facility] REPOSITORY [facility] Cardiovascular Services [address] [place] [address] 12 Lead EKG 12/06/17 0308 MR#: [id number] Acct: [id number] Name: JAMA BROWN Rep #: [id number] : 1940 77 From: Shlomo Roper MD [...] Normal ECG Confirmed by SHLOMO ROPER MD ([id number]), LIN Ladd ([id number]) on 12/07/2017 1:12:52 PM Referred By: GUY Confirmed By:SHLOMO ROPER MD 12/07/171311 Date Shlomo Roper MD CC: Nino Devine MD; Tray Fernandez DO; Juan R Rowland MD Signed 12 LEAD ELECTROCARDIOGRAM Observed: 12/07/2017 Status: F Source: [place] 1:12 PM [facility] REPOSITORY [facility] Cardiovascular Services [address] [place] [address] 12 Lead EKG 12/06/17 0142 MR#: [id number] Acct: [id number] Name: JAMA BROWN Rep #: [id number] : 1940 77 From: Shlomo Roper MD [...] Normal ECG Confirmed by SHLOMO ROPER MD ([id number]), editorial project manager LIN AVILES (56) on 12/07/2017 1:12:36 PM Referred By: UGY Confirmed By:SHLOMO ROPER MD 12/07/171311 Date Shlomo Roper MD CC: Nino Devine MD; Tray Fernandez DO; Juan R Rowland MD Signed TROPONIN-I Collected: 12/07/2017 Status: F Source: [place] 9:35 AM [facility] REPOSITORY TYPE CODE TESTS RESULT OUT OF RANGE REFERENCE UNITS LAB L501.4010 <0.045 ng/mL High alert 2.840 TROPONIN-I Result Comment: Critical Result(s) Called at: 10:09:20 12/07/2017 by: Cecilia Hernandez TROPONIN-I EXPECTED VALUES <0.045 Negative 0.045 - 0.590 Consistent with Cardiac Damage > OR = 0.600 Critical Value Not every elevated troponin is indicative of MS. These values should be used with clinical judgement in examining the patient's clinical picture for diagnosis. To establish a diagnosis of MS versus myocardial injury, there must be a demonstrated rise and/or fall in the troponin values, in addition to ischemic symptoms, EKG changes, new regional wall motion abnormality, and/or angiographical evidence. PLEASE NOTE: REFERENCE RANGES EDITED 17 Performed By: #### L501.4010 #### [facility] [place], [address] BASIC METABOLIC Collected: 12/07/2017 Status: F Source: [place] PROFILE (BMP) 4:33 AM [facility] REPOSITORY TYPE CODE TESTS RESULT OUT OF [...] GAP 8 Performed By: #### L500.2500 #### [facility] [address] [place], [place], [address] CBC-COMPLETE BLOOD CNT Collected: 12/07/2017 Status: F Source: [place] NO DIFF 4:33 AM [facility] REPOSITORY TYPE CODE TESTS RESULT OUT OF [...] MPV 9.3 Performed By: #### L100.0500 #### [facility] [address]. [place], [place], [id number] TROPONIN-I Collected: 12/07/2017 Status: F Source: [place] 4:33 AM [facility] REPOSITORY Order Comment: Comments: Add to Todays AM labs TYPE CODE TESTS RESULT OUT OF RANGE REFERENCE UNITS LAB L501.4010 <0.045 ng/mL High alert 4.060 TROPONIN-I Result Comment: Critical Result(s) Called at: 08:11:13 12/07/2017 by: Cecilia Chanel to [facility] TROPONIN-I EXPECTED VALUES <0.045 Negative 0.045 - 0.590 Consistent with Cardiac Damage > OR = 0.600 Critical Value Not every elevated troponin is indicative of MS. These values should be used with clinical judgement in examining the patient's clinical picture for diagnosis. To establish a diagnosis of MS versus myocardial injury, there must be a demonstrated rise and/or fall in the troponin values, in addition to ischemic symptoms, EKG changes, new regional wall motion abnormality, and/or angiographical evidence. PLEASE NOTE: REFERENCE RANGES EDITED 17 Performed By: #### L501.4010 #### [facility] [address] [place], [place], [address] URINALYSIS, ROUTINE Collected: 12/07/2017 Status: F Source: [place] (DIPSTICK) 4:15 AM [facility] REPOSITORY Order Comment: How was Urine Obtained? [...] ESTERASE 500 Performed By: #### L400.2010 #### [facility] [address] [place], [address] CONSULTATION Observed: 12/06/2017 Status: F Source: [place] 2:55 PM [facility] REPOSITORY [facility] Medical Records Department [address] [place] [address] Consultation 12/06/17 0757 MR#: [id number] Acct: [id number] Name: JAMA BROWN Rep #: [id number] : 1940 77 From: Familia Erwin MD PCP: Juan R Rowland MD Status: ADM IN Y Location: ICU ICU09-1 Problem List (1) Non-ST elevation MS (NSTEMI) Status: Acute (2) Ventricular tachycardia (paroxysmal) Status: Acute (3) CAD (coronary artery disease) Status: Chronic Qualifiers: Coronary Disease-Associated Artery/Lesion type: [place] artery (4) S/P PTCA (percutaneous transluminal coronary [...] he was being evaluated by cardiology and [place], [place] for period of time. During this [...] near syncope or syncope. [facility] evaluation. He was [...] appreciated Assessment/Plan 1. Acute non-ST segment elevation MS The patient presents with concerns based upon his history, his ongoing symptoms, his cardiac enzymes, his cardiac dysrhythmia, his ECG, of an acute non- ST segment elevation MS. At the present time he is continuing [...] members present. This note was generated with Project WBS dictation software. It may contain incorrect words, spelling, and punctuation that were not noted in checking the note before signing. 12/06/17 1455 <Electronically signed by Familia Erwin MD> Date Familia Erwin MD Cosigner Signature (if applicable): Date CC: Juan R Rowland MD; Familia Erwin MD Signed ACT ACTIVATED CLOTTING Collected: 12/06/2017 Status: F Source: [place] TIME 10:09 AM [facility] REPOSITORY TYPE CODE TESTS RESULT OUT OF RANGE REFERENCE UNITS LAB L9100.0100 74-137 sec High ACTk CLOT 158 TIME Performed By: #### L9100.0100 #### [facility] Point of Care [address] [place] [address] TROPONIN-I Collected: 12/06/2017 Status: F Source: [place] 8:00 AM [facility] REPOSITORY Order Comment: 'TROP' Serial specimen #1, [...] Not every elevated troponin is indicative of MS. These values should be used with clinical judgement in examining the patient's clinical picture for diagnosis. To establish a diagnosis of MS versus myocardial injury, there must be a demonstrated rise and/or fall in the troponin values, in addition to ischemic symptoms, EKG changes, new regional wall motion abnormality, and/or angiographical evidence. PLEASE NOTE: REFERENCE RANGES EDITED 17 Performed By: #### L501.4010 #### [facility] [address] [place], [place], [address] LIPID PROFILE Collected: 12/06/2017 Status: F Source: [place] 5:46 AM [facility] REPOSITORY TYPE CODE TESTS RESULT OUT OF [...] VLDL 16 Performed By: #### L500.4100 #### [facility] [address] [place], [address] PROTHROMBIN TIME W/INR Collected: 12/06/2017 Status: F Source: [place] 5:46 AM [facility] REPOSITORY TYPE CODE TESTS RESULT OUT OF RANGE REFERENCE UNITS LAB L300.4150 11.7-14.9 SECONDS High PROTIME 15.2 LAB L300.4200 Normal INR 1.2 Performed By: #### L300.3900, L300.4310 #### [facility] [address] [place], [address] PARTIAL THROMBOPLAST Collected: 12/06/2017 Status: F Source: [place] TIME 5:46 AM [facility] REPOSITORY TYPE CODE TESTS RESULT OUT OF RANGE REFERENCE UNITS LAB L300.4310 24.1-36.2 Seconds Normal PTT 32.6 Performed By: #### L300.3900, L300.4310 #### [facility] [address] [place], [address] HISTORY AND PHYSICAL Observed: 12/06/2017 Status: F Source: [place] EXAM 4:44 AM [facility] REPOSITORY [facility] Medical Records Department [address] [place] [address] History and Physical 12/06/17 0341 MR#: [id number] Acct: [id number] Name: JAMA BROWN Rep #: [id number] : 1940 77 From: Rufus Main MD PCP: Juan R Rowland MD Status: ADM IN Location: [place] [id number] Problem List (1) Non-ST elevation MS (NSTEMI) Status: Acute History of Present Illness [...] day before his admission. 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 Past [...] Problems: Active and Suspected Problems Non-ST elevation MS (NSTEMI) (Acute) - Physical Exam General: Alert [...] 12.3 Assessment/Plan All Active Problems Non-ST elevation MS (NSTEMI) (Acute) The patient is a 77 year old M with a significant history of CAD status post stents who presents with progressively worsening nonradiating substernal typical chest pain; a strong family history of heart disease; and a positive troponin concerning for non-ST elevation MS Non-ST elevation MS Admit to a monitored bed on PCU [...] been consulted. DVT prophylaxis Subcutaneous heparin 12/06/17 4416 <Electronically signed by Rufus Main MD> Date Rufus Main MD Cosigner Signature: Date (if applicable) CC: Rufus Main MD; Juan R Rowland MD Signed EMERGENCY DEPARTMENT Observed: 12/06/2017 Status: F Source: [place] SUMMARY 3:52 AM [facility] REPOSITORY [facility] Medical Records Department [address] [place] [address] Emergency Department Summary 12/06/17 0349 MR#: [id number] Acct: [id number] Name: JAMA BROWN Rep #: [id number] : 1940 77 From: Nino Devine MD PCP: Juan R Rowland MD Status: REG ER - ER Visit Summary Date of Service: 12/06/17 Chief Complaint: Chest pain History of Present Illness: The patient is a 77 M who presents with chest pain. He does have a history of coronary disease and prior MS. He had a previous stent which he [...] coronary syndrome This note was generated with Project WBS dictation software. It may contain incorrect words, [...] problems, contact your Primary Care Provider. Call Infectious Registry ([phone]) or report to the closest Emergency Room. Call 911 if necessary. 12/06/17 0352 <Electronically signed by Nino Devine MD> Date Nino Devine MD Cosigner Signature (If Indicated): Date CC: Juan R Rowland MD CHEST 1 VIEW Observed: 12/06/2017 Status: F Source: [place] (PORTABLE) 2:09 AM [facility] REPOSITORY [facility] Imaging Services [address] [place] [address] Chest 1 View (Portable) MR#: [id number] Acct: [id number] Name: JAMA BROWN Rep #: [id number] : 1940 M 77 From: Antoine Gandhi MD PCP: Juan R Rowland MD Status: REG ER Study: Chest 1 View (Portable) Date of Exam: 12/06/17 Exam# [id number] Ordering Dr: Nino Devine MD STUDY: X-RAY [...] , CC: Nino Devine MD; Juan R oRwland MD Senior Environmental Practice Leader: Signed CBC W/DIFF, AUTOMATED Collected: 12/06/2017 Status: F Source: [place] 1:50 AM [facility] REPOSITORY TYPE CODE TESTS RESULT OUT OF [...] Lymph 1.48 Performed By: #### L100.0100 #### [facility] [address] [place], [address] BASIC METABOLIC Collected: 12/06/2017 Status: F Source: [place] PROFILE (BMP) 1:50 AM [facility] REPOSITORY TYPE CODE TESTS RESULT OUT OF [...] 5 Performed By: #### L500.2500, L501.4010 #### [facility] [address] [place], [address] TROPONIN-I Collected: 12/06/2017 Status: F Source: [place] 1:50 AM [facility] REPOSITORY TYPE CODE TESTS RESULT OUT OF RANGE REFERENCE UNITS LAB L501.4010 <0.045 ng/mL High 0.184 TROPONIN-I Result Comment: TROPONIN-I EXPECTED VALUES <0.045 Negative 0.045 - 0.590 Consistent with Cardiac Damage > OR = 0.600 Critical Value Not every elevated troponin is indicative of MS. These values should be used with clinical judgement in examining the patient's clinical picture for diagnosis. To establish a diagnosis of MS versus myocardial injury, there must be a demonstrated rise and/or fall in the troponin values, in addition to ischemic symptoms, EKG changes, new regional wall motion abnormality, and/or angiographical evidence. PLEASE NOTE: REFERENCE RANGES EDITED 17 Performed By: #### L500.2500, L501.4010 #### [facility] [address] [place], [address] ALLERGIES ALLERGIES DATE TYPE / CODE NAME / CODE REACTION SEVERITY SOURCE 12/22/2017 Drug No Known Unknown [facility] Allergy/4160 Allergies/F00 [facility] 35483(SNOMED 2010049(RXNOR Repository CT) M) ENCOUNTERS ENCOUNTERS ADMIT/DISCHARGE ACCOUNT ADMITTING ENCOUNTER LOCATION SOURCE NUMBER CLASS 04/06/2018 [id number] Ambulatory [place] 6 [facility] ing:LAB Repository 03/30/2018 [id number] Ambulatory [place] 3 [facility] ing:LAB Repository 03/16/2018/ [id number] Ambulatory [place] 8 5 [facility] ing:LAB Repository 03/06/2018 [id number] Ambulatory [place] 4 [facility] ing:CVS Repository 03/06/2018 [id number] Ambulatory BMSBuilding:W [place] 1 [facility] Repository 01/05/2018/ [id number] Ambulatory [place] 8 3 [facility] ing:LAB Repository 12/22/2017 [id number] Ambulatory [place] 5 [facility] ing:LAB Repository 12/22/2017/ [id number] Ambulatory BMSBuilding:B [place] 8 8 [facility] Repository 12/11/2017/ [id number] Ambulatory [place] 8 4 [facility] ing:LAB Repository 12/09/2017 [id number] Ambulatory BMSBuilding:W [place] 1 [facility] Repository 12/06/2017/ [id number] [place], Inpatient [place] Connelly 8 9 Rufus Encounter [facility] ing:PCURoom: Repository [id number]: 1 12/06/2017 [id number] [place], Ambulatory BMSBuilding:B [place] 0 Rufus MS.CF.[facility] Repository 12/06/2017 [id number] [place], Ambulatory BMSBuilding:B [place] 9 Rufus MS.[facility] Repository 12/06/2017 [id number] [place], Ambulatory BMSBuilding:B [place] 2 Ruf[place] MS.CF.[facility] Repository 12/06/2017 [id number] [place], Ambulatory BMSBuilding:B [place] 0 Rufus MS.[facility] Repository 12/06/2017 [id number] [place], Ambulatory BMSBuilding:B [place] 7 Ruf[place] MS.CF.[facility] Repository 12/06/2017 [id number] [place], Ambulatory BMSBuilding:B [place] 9 Rufus MS.[facility] Repository 12/06/2017 [id number] [place], Ambulatory BMSBuilding:B [place] 9 Rufus MS.[facility] Repository PAYERS PAYERS ENCOUNTER GUARANTOR PAYER SUBSCRIBER SOURCE 04/06/2018 JAMA Tim [id number] ABIODUN [facility] Number: [id number] , [place] [address]Drg: [id number] Repository Date:2018-04-06 () 04/06/2018 Secondary NOT GIVENUNK [place] Insurance:SELF PAY [facility] Number: Effective Repository Date:2018-04-06 03/30/2018 JAMA R Primary JAMA Mann [place] [id number] ABIODUN Insurance:BAPTIST YODERDOB: [facility] Number: [id number], [place] [address]Yec: [id number] Repository Date:2017-12-11 () 03/30/2018 Secondary NOT GIVENUNK [place] Insurance:SELF PAY [facility] Number: Effective Repository Date:2018-03-19 03/16/2018 JAMA R Primary JAMA Mann [place] [id number] ABIODUN Insurance:BAPTIST YODERDOB: [facility] Number: [id number], [place] [address]Wre: [id number] Repository Date:2017-12-11 () 03/16/2018 Secondary NOT GIVENUNK [place] Insurance:SELF PAY [facility] Number: Effective Repository Date:2018-01-18 03/06/2018 JAMA R Primary Insurance:[facility] JAMA Mackenzie [place] [id number] ABIODUN PACKAGE PLANPolicy YODERDOB: [facility] Number: [facility] [id number], [place] [address]Suw: N/AEffective Repository Date:2017-12-25 () 03/06/2018 Secondary NOT GIVENUNK [place] Insurance:SELF PAY [facility] Number: Effective Repository Date:2017-12-25 03/06/2018 JAMA R Primary Insurance:[facility] JAMA Mackenzie [place] [id number] ABIODUN PACKAGE PLANPolicy YODERDOB: [facility] Number: [facility] [id number], [place] [address]Lnb: N/AEffective Repository Date:2017-12-25 () 03/06/2018 Secondary NOT GIVENUNK [place] Insurance:SELF PAY [facility] Number: Effective Repository Date:2018-03-06 01/05/2018 JAMA Mann Primary JAMA Mann [place] [id number] RASCON Insurance:BAPTIST YODERDOB: [facility] Number: [id number] , [place] [address]Guc: [id number] Repository Date:2017-12-11 () 01/05/2018 Secondary NOT GIVENUNK [place] Insurance:SELF PAY [facility] Number: Effective Repository Date:2017-12-20 12/22/2017 JAMA R Primary JAMA Mann [place] [id number] RASCON Insurance:BAPTIST YODERDOB: [facility] Number: [id number] , [place] [address]Ufh: [id number] Repository Date:2017-12-22 () 12/22/2017 Secondary NOT GIVENUNK [place] Insurance:SELF PAY [facility] Number: Effective Repository Date:2017-12-22 12/22/2017 JAMA Mann Primary NOT GIVENUNK [place] [id number] RASCON Insurance:SELF PAY [facility] [place] [address]Umu: Number: Effective Repository Date:2017-12-22 () 12/11/2017 JAMA Mann Primary JAMA Mann [place] [id number] RASCON Insurance:BAPTIST YODERDOB: [facility] Number: [id number] [facility] , [place] [address]Ruu: [id number] Repository Date:2017-12-11 () 12/11/2017 Secondary NOT GIVENUNK [place] Insurance:SELF PAY [facility] Number: Effective Repository Date:2017-12-11 12/09/2017 JAMA Mann Primary NOT GIVENUNK [place] [id number] RASCON Insurance:SELF PAY [facility] , [place] [address]Gqz: Number: Effective Repository Date:2017-12-09 () 12/06/2017 JAMA R Primary JAMA R [place] [id number] RASCON Insurance:BAPTIST YODERDOB: [facility] Number: [id number], [place] [address]Bic: [id number] Repository Date:2017-12-06 () 12/06/2017 Secondary NOT GIVENUNK [place] Insurance:SELF PAY [facility] Number: Effective Repository Date:2017-12-06 12/06/2017 JAMA R Primary NOT GIVENUNK [place] [id number] RASCON Insurance:[place]LF [place], [place] [address]Lbo: Number: Effective Repository Date:2017-12-06 () 12/06/2017 JAMA R Primary NOT GIVENUNK [place] [id number] RASCON Insurance:SELF [place], [place] [address]Cmu: Number: Effective Repository Date:2017-12-06 () 12/06/2017 JAMA R Primary NOT GIVENUNK [place] [id number] RAS[place] Insurance:[place] [address]Wxt: Number: Effective Repository Date:2017-12-06 () 12/06/2017 JAMA R Primary NOT GIVENUNK [place] [id number] RASCON Insurance:SELF [place], [place] [address]Drd: Number: Effective Repository Date:2017-12-06 () 12/06/2017 JAMA R Primary NOT GIVENUNK [place] [id number] RASCON Insurance:[place] [address]Wfj: Number: Effective Repository Date:2017-12-06 () 12/06/2017 JAMA R Primary NOT GIVENUNK [place] [id number] RAS[place] Insurance:SELF [place], [place] [address]Xah: Number: Effective Repository Date:2017-12-06 () 12/06/2017 JAMA R Primary NOT GIVENUNK [place] [id number] RAS[place] Insurance:SELF PAY [facility] , [place] [address]Bku: Number: Effective Repository Date:2017-12-06 ()
== END ==
LOC: LABSPEC 16:24 → LAB 16:27
PROVIDERS: Family Provider Family Medicine; PCP Family Medicine; Referring Provider Internal Medicine Cardiovascular Disease; Visit Provider Internal Medicine Cardiovascular Disease
DX: I51.3 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thrombosis, not elsewhere classified (principal)
CPT/HCPCS: 36415; 85610

== ENCOUNTER 2018-05-11 12:23 | Outpatient (RCR) | payer OTHER, SELFPAY ==
[2017-12-22 09:39] VITALS: BMI 29.0
[2018-04-20 11:20] VITALS: BMI 29.3
[2018-04-20 12:46] LABS: International Normalized Ratio 2.4; Prothrombin Time (Protime)PT. 26.2 SECONDS (11.7-14.9)
[2018-05-11 13:44] LABS: Prothrombin Time (Protime)PT. 22.7 SECONDS (11.7-14.9)
== END 2018-05-17 12:30 | disposition home or self-care (01) ==
LOC: LAB 12:23
PROVIDERS: Family Provider Family Medicine; PCP Family Medicine; Referring Provider Internal Medicine Cardiovascular Disease; Visit Provider Internal Medicine Cardiovascular Disease
DX: I51.3 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thrombosis, not elsewhere classified (principal); Z79.01 Long term (current) use of anticoagulants
CPT/HCPCS: 36415; 85610

== ENCOUNTER 2018-06-15 11:15 | Outpatient (RCR) | payer OTHER, SELFPAY ==
[2018-04-20 11:20] VITALS: BMI 29.3
[2018-06-01 13:50] LABS: International Normalized Ratio 1.9; Prothrombin Time (Protime)PT. 21.7 SECONDS (11.7-14.9)
[2018-06-15 11:53] LABS: International Normalized Ratio 1.6; Prothrombin Time (Protime)PT. 18.8 SECONDS (11.7-14.9)
== END 2018-06-15 13:30 | disposition home or self-care (01) ==
LOC: LAB 11:15
PROVIDERS: Family Provider Family Medicine; PCP Family Medicine; Referring Provider Internal Medicine Cardiovascular Disease; Visit Provider Internal Medicine Cardiovascular Disease
DX: I51.3 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thrombosis, not elsewhere classified (principal); Z79.01 Long term (current) use of anticoagulants
CPT/HCPCS: 36415; 85610

== ENCOUNTER 2018-07-13 13:08 | Outpatient (RCR) | payer OTHER, SELFPAY ==
[2018-04-20 11:20] VITALS: BMI 29.3
[2018-06-29 12:26] LABS: International Normalized Ratio 1.8; Prothrombin Time (Protime)PT. 20.5 SECONDS (11.7-14.9)
[2018-07-13 15:01] LABS: International Normalized Ratio 1.9; Prothrombin Time (Protime)PT. 21.9 SECONDS (11.7-14.9)
== END 2018-07-17 16:00 | disposition home or self-care (01) ==
LOC: LAB 13:08
PROVIDERS: Family Provider Family Medicine; PCP Family Medicine; Referring Provider Internal Medicine Cardiovascular Disease; Visit Provider Internal Medicine Cardiovascular Disease
DX: I51.3 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thrombosis, not elsewhere classified (principal); Z79.01 Long term (current) use of anticoagulants
CPT/HCPCS: 36415; 85610

== ENCOUNTER → 2018-07-24 | Outpatient (CLI) | payer OTHER, SELFPAY ==
[2018-04-20 11:20] VITALS: BMI 29.3
== END | disposition home or self-care (01) ==
LOC: CVS 09:56
PROVIDERS: Family Provider Family Medicine; PCP Family Medicine; Referring Provider Internal Medicine Cardiovascular Disease; Visit Provider Internal Medicine Cardiovascular Disease
DX: I25.10 Atherosclerotic heart disease of native coronary artery without angina pectoris (principal); I51.3 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thrombosis, not elsewhere classified; Z95.5 Presence of coronary angioplasty implant and graft
CPT/HCPCS: 93308; Q9957; A4216; C8924

== ENCOUNTER → 2018-11-08 | Outpatient (CLI) | payer SELFPAY ==
[2018-08-10 10:04] VITALS: BMI 30.4
== END | disposition home or self-care (01) ==
PROVIDERS: Family Provider Family Medicine; PCP Family Medicine; Referring Provider Internal Medicine Cardiovascular Disease; Visit Provider Internal Medicine Cardiovascular Disease
DX: I51.3 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thrombosis, not elsewhere classified (principal)
CPT/HCPCS: 93308; Q9957; A4216; C8924

== ENCOUNTER → 2019-09-18 10:05 | Outpatient (CLI) | payer OTHER, SELFPAY ==
[2019-09-16 08:59] VITALS: BMI 28.8
[2019-09-18 12:01] LABS: AST(SGOT) 19 U/L (15-37); Alanine Aminotransfer ALT/SGPT 25 U/L (16-61); Albumin, Serum 3.2 g/dL (3.2-5.0); Alkaline Phosphatase 65 U/L (45-117); Bilirubin, Direct 0.33 mg/dL (0.00-0.30); Cholesterol 98 mg/dL (200); Globulin 3.6 g/dL (2.2-4.2); High Density Lipoprotein 51 mg/dL; Protein, Total 6.8 g/dL (6.4-8.2); Triglycerides 76 mg/dL; Very Low Density Lipoprotein 15 mg/dL (5-40)
== END ==
PROVIDERS: PCP Family Medicine; Referring Provider Nurse Practitioner Family; Visit Provider Nurse Practitioner Family
DX: I25.10 Atherosclerotic heart disease of native coronary artery without angina pectoris (principal); E78.5 Hyperlipidemia, unspecified
CPT/HCPCS: 36415; 80061; 80076

== ENCOUNTER → 2020-04-21 13:59 | Outpatient (CLI) | payer OTHER, SELFPAY ==
[2020-04-20 11:04] VITALS: BMI 29.2
[2020-04-21 15:16] LABS: AST(SGOT) 19 U/L (15-37); Alanine Aminotransfer ALT/SGPT 21 U/L (16-61); Albumin, Serum 3.3 g/dL (3.2-5.0); Alkaline Phosphatase 81 U/L (45-117); Bilirubin, Direct 0.34 mg/dL (0.00-0.30); Cholesterol 111 mg/dL (200); Globulin 3.8 g/dL (2.2-4.2); High Density Lipoprotein 49 mg/dL; Protein, Total 7.1 g/dL (6.4-8.2); Triglycerides 54 mg/dL; Very Low Density Lipoprotein 11 mg/dL (5-40)
== END ==
PROVIDERS: PCP Family Medicine; Referring Provider Internal Medicine Cardiovascular Disease; Visit Provider Internal Medicine Cardiovascular Disease
DX: E78.00 Pure hypercholesterolemia, unspecified (principal)
CPT/HCPCS: 36415; 80061; 80076

== ENCOUNTER → 2020-10-22 10:48 | Outpatient (CLI) | payer OTHER, SELFPAY ==
[2020-10-22 10:16] VITALS: BMI 29.2
[2020-10-22 11:44] LABS: AST(SGOT) 20 U/L (15-37); Alanine Aminotransfer ALT/SGPT 22 U/L (16-61); Albumin, Serum 3.5 g/dL (3.2-5.0); Alkaline Phosphatase 70 U/L (45-117); Anion Gap 5 (5-15); BUN 15 mg/dL (7-18); BUN/Creat Ratio 18.7 RATIO (10-20); Bilirubin, Direct 0.31 mg/dL (0.00-0.30); Calcium,Total 8.4 mg/dL (8.5-10.1); Chloride 106 mmol/L (98-107); Cholesterol 190 mg/dL (200); EST Glomerular Filtration Rate 99 mL/min (>60); Est Glom Filt Rate - Afr Amer 119 mL/min (>60); Globulin 3.8 g/dL (2.2-4.2); Glucose 88 mg/dL (74-106); High Density Lipoprotein 51 mg/dL; Potassium 3.7 mmol/L (3.5-5.1); Protein, Total 7.3 g/dL (6.4-8.2); Sodium Level 140 mmol/L (136-145); Triglycerides 105 mg/dL; Very Low Density Lipoprotein 21 mg/dL (5-40)
== END ==
LOC: LABSPEC 10:50 → LAB 13:33
PROVIDERS: PCP Family Medicine; Visit Provider Nurse Practitioner Gerontology
DX: E78.2 Mixed hyperlipidemia (principal); I10 Essential (primary) hypertension
CPT/HCPCS: 36415; 80048; 80061; 80076

== ENCOUNTER → 2022-03-02 | Outpatient (CLI) | payer OTHER, SELFPAY ==
[2022-03-02 11:58] LABS: AST(SGOT) 27 U/L (15-37); Alanine Aminotransfer ALT/SGPT 24 U/L (16-61); Albumin, Serum 3.4 g/dL (3.2-5.0); Alkaline Phosphatase 73 U/L (45-117); Bilirubin, Direct 0.31 mg/dL (0.00-0.30); Cholesterol 142 mg/dL (200); Globulin 3.6 g/dL (2.2-4.2); High Density Lipoprotein 56 mg/dL; Triglycerides 60 mg/dL; Very Low Density Lipoprotein 12 mg/dL (5-40)
== END | disposition home or self-care (01) ==
LOC: LAB 10:53
PROVIDERS: PCP Family Medicine; Referring Provider Physician Assistant Medical; Visit Provider Physician Assistant Medical
DX: E78.2 Mixed hyperlipidemia (principal)
CPT/HCPCS: 36415; 80061; 80076

== ENCOUNTER → 2022-09-05 | Outpatient (CLI) | payer OTHER, SELFPAY ==
[2022-09-05 10:52] LABS: Absolute Lymphocyte Count 1.68 X10^3/uL (0.83-4.51); Absolute Neutrophil Count 3.8 X10^3/uL (2.0-7.7); Basophil# 0.05 X10^3/uL; Basophil% 0.7 % (0-1); Eosinophil# 0.74 X10^3/uL; Eosinophils% 10.6 % (0-5); Hematocrit 43.1 % (40-54); Hemoglobin 14.4 g/dL (13.0-16.5); Lymphocyte # 1.68 X10^3/ul (0.83-4.51); Lymphocyte % 24.1 % (19-41); Mean Corp Hgb Conc 33.4 g/dL (32-36); Mean Corpuscular Hgb 32.4 pg (27.0-32.0); Mean Corpuscular Volume 97.1 fL (80-94); Mean Platelet Vol. 9.1 fl (6.2-12.0); Monocyte# 0.71 X10^3/uL; Monocyte% 10.2 % (0-10); NRBC Flagged by Analyzer 0 % (0-5); Neutrophil # 3.77 X10^3/uL (2.7-7.7); Platelet Count 188 K/mm3 (150-450); RBC Distribution Width SD 42.7 fl (35.1-43.9); Red Blood Count 4.44 M/mm3 (4.6-6.2)
[2022-09-05 11:22] LABS: ALB/GLOB Ratio 0.8 RATIO (0.9-2.4); AST(SGOT) 19 U/L (15-37); Alanine Aminotransfer ALT/SGPT 18 U/L (16-61); Albumin, Serum 3.2 g/dL (3.2-5.0); Alkaline Phosphatase 81 U/L (45-117); Anion Gap 5 (5-15); BUN 13 mg/dL (7-18); BUN/Creat Ratio 14.6 RATIO (10-20); Calcium,Total 8.7 mg/dL (8.5-10.1); Chloride 108 mmol/L (98-107); Cholesterol 127 mg/dL (200); Creatinine, Serum 0.89 mg/dL (0.70-1.30); EST Glomerular Filtration Rate 87 mL/min (>60); Est Glom Filt Rate - Afr Amer 105 mL/min (>60); Globulin 4.1 g/dL (2.2-4.2); Glucose 90 mg/dL (74-106); High Density Lipoprotein 57 mg/dL; Potassium 3.9 mmol/L (3.5-5.1); Protein, Total 7.3 g/dL (6.4-8.2); Sodium Level 141 mmol/L (136-145); Triglycerides 55 mg/dL; Very Low Density Lipoprotein 11 mg/dL (5-40)
== END | disposition home or self-care (01) ==
PROVIDERS: PCP Family Medicine; Referring Provider Physician Assistant Medical; Visit Provider Physician Assistant Medical
DX: I10 Essential (primary) hypertension (principal); E78.2 Mixed hyperlipidemia; I25.10 Atherosclerotic heart disease of native coronary artery without angina pectoris
CPT/HCPCS: 36415; 80053; 80061; 85025

== ENCOUNTER → 2023-09-25 | Outpatient (CLI) | payer SELFPAY ==
[2023-09-25 10:43] LABS: Absolute Lymphocyte Count 1.72 X10^3/uL (0.83-4.51); Absolute Neutrophil Count 4.6 X10^3/uL (2.0-7.7); Basophil# 0.06 X10^3/uL; Basophil% 0.8 % (0-1); Eosinophil# 0.68 X10^3/uL; Eosinophils% 8.7 % (0-5); Hematocrit 41.1 % (40-54); Hemoglobin 13.6 g/dL (13.0-16.5); Lymphocyte # 1.72 X10^3/ul (0.83-4.51); Mean Corp Hgb Conc 33.1 g/dL (32-36); Mean Corpuscular Hgb 31.4 pg (27.0-32.0); Mean Corpuscular Volume 94.9 fL (80-94); Mean Platelet Vol. 9.5 fl (6.2-12.0); Monocyte# 0.75 X10^3/uL; Monocyte% 9.6 % (0-10); NRBC Flagged by Analyzer 0 % (0-5); Neutrophil # 4.59 X10^3/uL (2.7-7.7); Neutrophil % 58.5 % (47-70); Platelet Count 189 K/mm3 (150-450); RBC Distribution Width CV 11.9 % (11.6-14.6); RBC Distribution Width SD 41.4 fl (35.1-43.9); Red Blood Count 4.33 M/mm3 (4.6-6.2); White Blood Count 7.8 K/mm3 (4.4-11.0)
[2023-09-25 11:33] LABS: AST(SGOT) 17 U/L (15-37); Alanine Aminotransfer ALT/SGPT 20 U/L (16-61); Albumin, Serum 3.2 g/dL (3.2-5.0); Alkaline Phosphatase 77 U/L (45-117); Anion Gap 4 (5-15); BUN 18 mg/dL (7-18); BUN/Creat Ratio 19.8 RATIO (10-20); Bilirubin, Direct 0.27 mg/dL (0.00-0.30); Chloride 110 mmol/L (98-107); Cholesterol 130 mg/dL (200); Creatinine, Serum 0.91 mg/dL (0.70-1.30); EST Glomerular Filtration Rate 85 mL/min (>60); Est Glom Filt Rate - Afr Amer 102 mL/min (>60); Globulin 4.1 g/dL (2.2-4.2); Glucose 89 mg/dL (74-106); High Density Lipoprotein 56 mg/dL; Magnesium 2.2 mg/dL (1.6-2.6); Protein, Total 7.3 g/dL (6.4-8.2); Sodium Level 143 mmol/L (136-145); Triglycerides 51 mg/dL; Very Low Density Lipoprotein 10 mg/dL (5-40)
== END | disposition home or self-care (01) ==
LOC: LAB 10:08
PROVIDERS: PCP Family Medicine; Referring Provider Nurse Practitioner Family; Visit Provider Nurse Practitioner Family
DX: E78.2 Mixed hyperlipidemia (principal); I47.20 Ventricular tachycardia, unspecified; I10 Essential (primary) hypertension; I25.10 Atherosclerotic heart disease of native coronary artery without angina pectoris
CPT/HCPCS: 36415; 80048; 80061; 80076; 83735; 85025

== ENCOUNTER → 2024-11-14 | Outpatient (CLI) | payer OTHER, SELFPAY ==
[2024-11-14 12:02] LABS: AST(SGOT) 26 U/L (<=37); Alanine Aminotransfer ALT/SGPT 19 U/L (<=46); Albumin, Serum 3.7 g/dL (3.4-4.8); Alkaline Phosphatase 76 U/L (40-129); Bilirubin, Direct 0.58 mg/dL (0.00-0.30); Cholesterol 116 mg/dL (<=200); Globulin 3.1 g/dL (2.2-4.2); Low Density Lipoprotein Calc. 48 mg/dL; Triglycerides 58 mg/dL; Very Low Density Lipoprotein 12 mg/dL (5-40); cholesterol:hdl ratio screen 2.04
== END | disposition home or self-care (01) ==
LOC: LAB 09:42
PROVIDERS: PCP Family Medicine; Referring Provider Nurse Practitioner Gerontology; Visit Provider Nurse Practitioner Gerontology
DX: E78.2 Mixed hyperlipidemia (principal)
CPT/HCPCS: 36415; 80061; 80076

== ENCOUNTER → 2024-12-26 | Outpatient (CLI) | payer SELFPAY, OTHER ==
--- NOTE | 2024-12-26 09:03 | ECHOCS_ITS ---
Reason For Study Reason For Study: MURMUR Procedure This was a 2D Doppler, Color Flow transthoracic echocardiogram. The study was technically difficult. Contrast injection was performed. Exam performed in department. Left Ventricle Normal LV size. Moderate concentric left ventricular hypertrophy. Mild segmental systolic dysfunction (see wall motion). Stage 1 diastolic dysfunction. The left ventricular ejection fraction is 50 %. Left ventricular systolic function is lower limits of normal. Inferior [place] : Akinetic. Anterior [place] : Severely Hypokinetic. The rest of the wall segments are normal. Right Ventricle Normal RV size. Normal systolic function. Atria The left atrium is mildly enlarged. Mitral Valve There is moderate mitral annular calcification. Mild (1+) eccentric mitral valve insufficiency. Aortic Valve Trisinus/trileaflet aortic valve. Mild (1+) aortic valve insufficiency. Pulmonic Valve Normal pulmonic valve. Great Vessels Normal aortic root. The pulmonary artery is normal size. Inferior vena cava collapse with respiration. Pericardium/Pleural No pericardial effusion. Medication 22 gauge I.V. with prn adaptor inserted into right arm. Diluted definity 1ml given slow IV push to enhance endocardial definition. MMode/2D Measurements & Calculations LVIDd: 3.9 cm IVSd: 1.4 cm LAV(MOD-sp4): 54.9 ml LVIDs: 2.5 cm LVPWd: 1.6 cm FS: 36.3 % LVAd ap4: 41.1 cm2 SV(MOD-sp4): 68.0 ml SV(sp4-el): 76.1 ml LVLd ap4: 9.1 cm SI(MOD-sp4): 37.2 ml/m2 EDV(MOD-sp4): 150.0 ml EDV(sp4-el): 157.3 ml LVAs ap4: 28.8 cm2 LVLs ap4: 8.6 cm ESV(MOD-sp4): 82.0 ml ESV(sp4-el): 81.2 ml EF(MOD-sp4): 45.3 % EF(sp4-el): 48.4 % LA A4 area: 20.3 cm2 LA dimension(2D): 3.6 cm RA A4 area: 13.9 cm2 Time Measurements MV dec time: 0.23 sec Doppler Measurements & Calculations MV E max lai: 78.4 cm/sec Lat Peak E' Lai: 9.0 cm/sec Med Peak E' Lai: 7.2 cm/sec MV A max lai: 81.4 cm/sec E/E' lat: 8.7 E/E' med: 10.9 MV E/A: 0.96 MV V2 max: 87.3 cm/sec Ao V2 max: 159.4 cm/sec MV max P.1 mmHg MV dec slope: 354.2 cm/sec2 Ao max P.2 mmHg MV V2 mean: 59.7 cm/sec Ao V2 mean: 113.3 cm/sec MV mean P.6 mmHg Ao mean P.8 mmHg MV V2 VTI: 38.1 cm Ao V2 VTI: 37.9 cm AV (velocity ratio): 0.67 AI max lai: 484.1 cm/sec LV V1 max: 96.7 cm/sec PA V2 max: 66.8 cm/sec AI max P.7 mmHg LV V1 max P.7 mmHg PA V2 mean: 50.5 cm/sec AI dec slope: 236.1 cm/sec2 LV V1 mean P.2 mmHg AI P1/2t: 600.6 msec LV V1 mean: 70.0 cm/sec LV V1 VTI: 25.3 cm ECHO/Echo Complete W/ Contrast Interpretation Summary Normal LV size. Mild segmental systolic dysfunction (see wall motion). Moderate concentric left ventricular hypertrophy. Stage 1 diastolic dysfunction. The left ventricular ejection fraction is 50 %. Left ventricular systolic function is lower limits of normal. Contrast injection was performed. Ordering Physician: Radha Augustine Referring Physician: Radha Augustine Performed By: Saloni Armendariz RCS
== END | disposition home or self-care (01) ==
PROVIDERS: PCP Nurse Practitioner Family; Referring Provider Nurse Practitioner Gerontology; Visit Provider Nurse Practitioner Gerontology
DX: R01.1 Cardiac murmur, unspecified (principal)
CPT/HCPCS: 93306; Q9957; A4216; C8929